=== PATIENT | female | born 1945 | race Caucasian/White ===

== ENCOUNTER 2018-12-27 11:02 | Inpatient (IN) | payer MEDICARE, MEDICAID ==
[~2018-12-27] VITALS: Ht 154.9 cm; Wt 56.4 kg
[2018-12-27 11:37] LABS: BASO % 0 % (0-3); EOS # 0.6 x10^3/uL (0.0-0.7); EOS % 14 % (0-3); HEMATOCRIT 37.5 % (36.0-47.0); HEMOGLOBIN 12.1 g/dL (12.0-15.5); LYMPH # 1.1 x10^3/uL (1.0-4.8); LYMPH % 27 % (24-48); MEAN CORPUSCULAR HEMOGLOBIN 27 pg (25-35); MEAN CORPUSCULAR HGB CONC 32 g/dL (31-37); MEAN CORPUSCULAR VOLUME 83 fL (79-100); MONO # 0.3 x10^3/uL (0.0-1.1); MONO % 9 % (0-9); NEUT % 50 % (31-73); PLATELET COUNT 291 x10^3/uL (140-400); RED CELL DISTRIBUTION WIDTH 16.4 % (11.5-14.5)
--- NOTE | 2018-12-27 11:47 | RAD ---
2 view study of the right hip and AP view of the pelvis Clinical indications: Fall. Right hip pain and pelvic pain. Right hip: No acute fracture or dislocation or osteolytic process is seen. Pelvis: No acute fracture or diastases or lytic process is seen. IMPRESSION: No acute fracture Electronically signed by: Rudolph Diaz MD (12/27/2018 11:44 AM) [id number]
[2018-12-27 11:50] LABS: ALBUMIN 2.8 g/dL (3.4-5.0); ALBUMIN/GLOBULIN RATIO 0.7 (1.0-1.7); CALCIUM 8.6 mg/dL (8.5-10.1); CREATININE 0.7 mg/dL (0.6-1.0); GFR 82.3; MAGNESIUM 2.2 mg/dL (1.8-2.4); POTASSIUM 3.9 mmol/L (3.5-5.1); TOTAL BILIRUBIN 0.3 mg/dL (0.2-1.0); TOTAL PROTEIN 6.9 g/dL (6.4-8.2)
[2018-12-27 12:21] LABS: BACTERIA,URINE 0 /HPF (0-FEW); BILIRUBIN,URINE NEG (NEG); CLARITY,URINE CLEAR; COLOR,URINE YELLOW; GLUCOSE,URINE NEG (NEG); NITRITE,URINE NEG (NEG); RBC,URINE 0 /HPF (0-2); SQUAMOUS EPITHELIAL CELL,UR OCC /LPF; UROBILINOGEN,URINE 0.2 mg/dL (0.2 mg/dL); WBC,URINE 0 /HPF (0-4)
[2018-12-27 12:22] LABS: AMORPHOUS SEDIMENT,UR PRESENT /HPF
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
[2018-12-27 13:44] VITALS: BP 123/77
[2018-12-27] MEDS ORDERED: MAG30ORA2 PO (14:45)
[2018-12-27] MEDS ORDERED: METHYL SALICYLATE/MENTHOL TOPICAL OINTMENT 29GM TUBE. TP PRN (14:45)
[2018-12-27] MEDS ORDERED: MAGNESIUM HYDROXIDE 2,400 MG/30 ML ORAL.SUSP. PO PRN ×2 (14:45→15:15)
[2018-12-27] MEDS ORDERED: MAG HYDROX/AL HYDROX/SIMETH 30 ML ORAL.SUSP PO PRN ×2 (14:45→15:00)
[2018-12-27] MEDS ORDERED: ATOR10TA60 PO (14:59)
[2018-12-27] MEDS ORDERED: GABA600T7 PO (14:59)
[2018-12-27] MEDS ORDERED: QUET100T4 PO (14:59)
[2018-12-27] MEDS ORDERED: MEMA10TA PO (14:59)
[2018-12-27] MEDS ORDERED: ACET325T9 PO (14:59)
[2018-12-27] MEDS ORDERED: TRAZ-120 PO (14:59)
[2018-12-27] MEDS ORDERED: ACET-704 PO (14:59)
[2018-12-27] MEDS ORDERED: LORA2VIA6 IM (14:59)
[2018-12-27] MEDS ORDERED: LORA-254 PO (14:59)
[2018-12-27] MEDS ORDERED: MAGN2400 PO (14:59)
[2018-12-27] MEDS ORDERED: POLY17PO5 PO (14:59)
[2018-12-27] MEDS ORDERED: ACETAMINOPHEN 325 MG TABLET PO PRN (15:00)
[2018-12-27] MEDS ORDERED: CEPH500C PO (15:06)
[2018-12-27] MEDS ORDERED: POLYETHYLENE GLYCOL 3350 17 GM PACKET. PO PRN (15:15)
[2018-12-27] MEDS: ACETAMINOPHEN/CODEINE 300/30MG TABLET PO PRN (16:26)
--- NOTE | 2018-12-27 19:22 | HP ---
ADMIT DATE: 12/27/2018 PSYCHIATRIC ADMISSION HISTORY/EVALUATION This note covers elements not covered in my initial note of 12/27/2018. IDENTIFYING DATA: The patient is a 73-year-old female referred to us from [facility] by Dr. Botello, her primary care physician and admission was facilitated by the [facility] [employer] who is her court-appointed guardian in [place], [place] on account of the patient's worsening confusion after the patient's behaviors were unmanageable at the facility. Reportedly, she was "crowing like a chicken." She has a labile mood, was screaming, tearful, kicking, hitting, slapping staff and toileting. Behaviors were totally unmanageable. She attempts at interventions at the half-way, outpatient had failed resulting in this referral. CHIEF COMPLAINT: "No." The patient is oriented just to herself, totally oblivious of why she is here. HISTORY OF PRESENT ILLNESS: The patient has a history of dementia, Alzheimer's vascular type. She has been residing at the above facility for some time, but recently getting more anxious, agitated, paranoid, psychotic with marked mood lability. She has had sleep and appetite changes. No clear history of bipolar disorder, suicidal or homicidal ideation. PAST PSYCHIATRIC HISTORY: As above. MEDICAL HISTORY: Positive for chronic pain, hyperlipidemia, chronic constipation. DRUG ALLERGIES: AMPICILLIN, AZITHROMYCIN, LEVAQUIN, FLOMAX. CURRENT PSYCHOTROPICS: Ativan 0.5 mg q. 4 hours p.r.n. anxiety, trazodone 50 mg b.i.d., Namenda 10 mg b.i.d., Seroquel 150 mg t.i.d. UA is negative. FAMILY HISTORY: Noncontributory. DIET: Regular. ACCU-CHEKS: None. She ambulates on her own. FAMILY HISTORY: Noncontributory. SOCIAL HISTORY: No history of alcohol, drug abuse, physical, sexual or elder abuse. She is not known to be a perpetrator. REACTION TO HOSPITALIZATION: The patient oblivious of this. ASSETS: Supportive, living at the half-way and supported by her guardian. REVIEW OF SYSTEMS: No CV, , pulmonary, eye, ENT system symptoms on review. Reliability poor. MENTAL STATUS EXAMINATION: The patient is oriented to herself. Insight, judgment, recent and remote memory, attention, concentration, fund of knowledge poor, consistent with her diagnosis. Speech coherent, rapid at times. Thought processes evident for loose associations. Appears somewhat paranoid at times, extremely distractible, labile in her mood. LABORATORY DATA: Reviewed. IMPRESSION: Major neurocognitive disorder, Alzheimer, vascular with delusion, depression, behavioral disturbance; anxiety disorder, unspecified; impulse control disorder, unspecified. Rest as above. PLAN: Admit to the geropsychiatry unit at [facility]. I will see the patient daily individually from a psychiatric standpoint, medical followup with Dr. Cooney. Observe the patient's baseline. Continue current psychotropics, then adjust further as clinically indicated. May consider Depakote as a mood stabilizer, BuSpar for anxiety, but I would like to evaluate her baseline before deciding. MAN Baldemar MCCAIN MD DR: ERIN/rajesh JOB#: [id number] / [id number]
[2018-12-27] MEDS: CEPHALEXIN 250 MG CAPSULE PO SCH (20:24)
[2018-12-27] MEDS: MEMANTINE 10 MG TABLET. PO SCH (20:24)
[2018-12-27] MEDS: traZODone 50 MG TABLET. PO SCH (20:25)
[2018-12-27] MEDS: GABAPENTIN 100 MG CAPSULE. PO SCH (20:25)
[2018-12-27] MEDS: QUEtiapine 50 MG TABLET. PO SCH (20:25)
[2018-12-27] MEDS: ATORVASTATIN CALCIUM 10 MG TABLET. PO SCH (20:25)
--- NOTE | 2018-12-27 22:13 | PDOC ---
Exam Note: Yoel Note: Please also refer to the separate dictated note~for this date of service dictated separately. Discussed the patient with Nursing staff reviewed the chart.~Reviewed interim history and current functioning. Reviewed vital signs,~ Labs/ Radiology~and current medications noted below. Continue current treatment with the changes noted in the dictated addendum note Assessment: Vital Signs: Vital Signs Date Time Temp Pulse Resp B/P (MAP) Pulse Ox O2 Delivery O2 Flow Rate FiO2 12/27/18 18:27 18 98 Room Air 12/27/18 13:44 98.6 73 123/77 (92) Labs: Laboratory Tests Test 12/27/18 11:21 12/27/18 12:00 White Blood Count 4.0 x10^3/uL (4.0-11.0) Red Blood Count 4.50 x10^6/uL (3.50-5.40) Hemoglobin 12.1 g/dL (12.0-15.5) Hematocrit 37.5 % (36.0-47.0) Mean Corpuscular Volume 83 fL (79-100) Mean Corpuscular Hemoglobin 27 pg (25-35) Mean Corpuscular Hemoglobin Concent 32 g/dL (31-37) Red Cell Distribution Width 16.4 % (11.5-14.5) H Platelet Count 291 x10^3/uL (140-400) Neutrophils (%) (Auto) 50 % (31-73) Lymphocytes (%) (Auto) 27 % (24-48) Monocytes (%) (Auto) 9 % (0-9) Eosinophils (%) (Auto) 14 % (0-3) H Basophils (%) (Auto) 0 % (0-3) Neutrophils # (Auto) 2.0 x10^3uL (1.8-7.7) Lymphocytes # (Auto) 1.1 x10^3/uL (1.0-4.8) Monocytes # (Auto) 0.3 x10^3/uL (0.0-1.1) Eosinophils # (Auto) 0.6 x10^3/uL (0.0-0.7) Basophils # (Auto) 0.0 x10^3/uL (0.0-0.2) Sodium Level 143 mmol/L (136-145) Potassium Level 3.9 mmol/L (3.5-5.1) Chloride Level 106 mmol/L (98-107) Carbon Dioxide Level 30 mmol/L (21-32) Anion Gap 7 (6-14) Blood Urea Nitrogen 8 mg/dL (7-20) Creatinine 0.7 mg/dL (0.6-1.0) Estimated GFR (Cockcroft-Gault) 82.3 BUN/Creatinine Ratio 11 (6-20) Glucose Level 93 mg/dL (70-99) Calcium Level 8.6 mg/dL (8.5-10.1) Magnesium Level 2.2 mg/dL (1.8-2.4) Total Bilirubin 0.3 mg/dL (0.2-1.0) Aspartate Amino Transferase (AST) 14 U/L (15-37) L Alanine Aminotransferase (ALT) 15 U/L (14-59) Alkaline Phosphatase 65 U/L (46-116) Total Protein 6.9 g/dL (6.4-8.2) Albumin 2.8 g/dL (3.4-5.0) L Albumin/Globulin Ratio 0.7 (1.0-1.7) L Urine Collection Type U cath Urine Color Yellow Urine Clarity Clear Urine pH 5.5 Urine Specific [place] 1.020 Urine Protein Neg (NEG-TRACE) Urine Glucose (UA) Neg mg/dL (NEG) Urine Ketones (Stick) Neg mg/dL (NEG) Urine Blood Neg (NEG) Urine Nitrite Neg (NEG) Urine Bilirubin Neg (NEG) Urine Urobilinogen Dipstick 0.2 mg/dL (0.2 mg/dL) Urine Leukocyte Esterase Neg (NEG) Urine RBC 0 /HPF (0-2) Urine WBC 0 /HPF (0-4) Urine Squamous Epithelial Cells Occ /LPF Urine Amorphous Sediment Present /HPF Urine Bacteria 0 /HPF (0-FEW) Current Medications: Meds: Current Medications Acetaminophen (Tylenol) 650 mg PRN Q6HRS PRN PO PAIN / TEMP; Start 12/27/18 at 14:45 Multi-Ingredient Ointment (Analgesic [place]) 1 halle PRN QID PRN TP MUSCLE PAIN; Start 12/27/18 at 14:45 Al Hydroxide/Mg Hydroxide (Mylanta Plus Xs) 15 ml PRN AFTMEALHC PRN PO DYSPEPSIA; Start 12/27/18 at 14:45; Status Cancel Magnesium Hydroxide (Milk Of Magnesia) 2,400 mg PRN QHS PRN PO CONSTIPATION; Start 12/27/18 at 14:45; Status Cancel Acetaminophen (Tylenol) 650 mg PRN Q6HRS PRN PO PAIN; Start 12/27/18 at 15:00; Status UNV Lorazepam (Ativan) 0.5 mg PRN Q4HRS PRN PO AGITATION; Start 12/27/18 at 15:00 Al Hydroxide/Mg Hydroxide (Mylanta Plus Xs) 30 ml PRN Q4HRS PRN PO DYSPEPSIA; Start 12/27/18 at 15:00 Acetaminophen/ Codeine Phosphate (Tylenol #3) 1 tab PRN Q6HRS PRN PO PAIN Last administered on 12/27/18at 16:26; Start 12/27/18 at 15:15 Atorvastatin Calcium (Lipitor) 10 mg QHS PO Last administered on 12/27/18 20: 25; Start 12/27/18 at 21:00 Gabapentin (Neurontin) 100 mg TID PO Last administered on 12/27/18at 20:25; Start 12/27/18 at 21:00 Magnesium Hydroxide (Milk Of Magnesia) 2,400 mg PRN Q6HRS PRN PO CONSTIPATION; Start 12/27/18 at 15:15 Memantine (Namenda) 10 mg BID PO Last administered on 12/27/18at 20:24; Start at 21:00 Polyethylene Glycol (miraLAX) 17 gm PRN DAILY PRN PO CONSTIPATION; Start at 15:15 Quetiapine Fumarate (SEROquel) 150 mg TID PO Last administered on 12/27/18at 20: 25; Start 12/27/18 at 21:00 Trazodone HCl (Desyrel) 50 mg BID PO Last administered on 12/27/18 20:25; Start 12/27/18 at 21:00 Cephalexin HCl (Keflex) 500 mg TID PO Last administered on 12/27/18at 20:24; Start 12/27/18 at 21:00 Active Scripts Active Reported Cephalexin 500 Mg Capsule 500 Mg PO TID Gabapentin 600 Mg Tablet 100 Mg PO TID Seroquel (Quetiapine Fumarate) 100 Mg Tablet 150 Mg PO TID Atorvastatin Calcium 10 Mg Tablet 10 Mg PO QHS Namenda (Memantine Hcl) 10 Mg Tablet 10 Mg PO BID Trazodone Hcl 50 Mg Tablet 50 Mg PO BID Miralax (Polyethylene Glycol 3350) 17 Gm Powd.pack 17 Gm PO PRN DAILY PRN Tylenol With Codeine #3 Tablet (Acetaminophen With Codeine) 1 Each Tablet 1 Each PO PRN Q6HRS PRN Milk Of Magnesia (Magnesium Hydroxide) 2,400 Mg/10 Ml Oral.susp 30 Ml PO PRN Q6HRS PRN Tylenol (Acetaminophen) 325 Mg Tablet 650 Mg PO PRN Q6HRS PRN Ativan (Lorazepam) 1 Mg Tablet 0.5 Mg PO PRN Q4HRS PRN Mag-Al Plus Xs Suspension (Mag Hydrox/Al Hydrox/Simeth) 30 Ml Oral.susp 30 Ml PO PRN Q4HRS PRN I have reviewed the current psychotropics carefully including drug interactions. Risk benefit ratio favors no change other than as noted in my dictated progress note. Diagnosis: Problems: (1) Dementia (2) Behavior problem (3) Medical clearance for psychiatric admission (4) Anxiety disorder (5) Dementia in Alzheimer's disease with delusions (6) Dementia in Alzheimer's disease with depression (7) Dementia, vascular, with delusions (8) Dementia, vascular, with depression (9) Impulse control disorder NAJMA MCCAIN MD Dec 27, 2018 22:13
[2018-12-27 23:07] LABS: THYROXINE 5.8 ug/dL (4.5-12.0)
[2018-12-28 01:06] LABS: HEMOGLOBIN A1C 6.4 % (4.8-5.6)
[2018-12-28] MEDS: ACETAMINOPHEN/CODEINE 300/30MG TABLET PO PRN (01:18)
[2018-12-28 06:02] VITALS: BP 125/61
[2018-12-28] MEDS: QUEtiapine 50 MG TABLET. PO SCH ×3 (08:23→19:30)
[2018-12-28] MEDS: GABAPENTIN 100 MG CAPSULE. PO SCH ×3 (08:24→19:30)
[2018-12-28] MEDS: MEMANTINE 10 MG TABLET. PO SCH ×2 (08:24→19:30)
[2018-12-28] MEDS: CEPHALEXIN 250 MG CAPSULE PO SCH ×3 (08:24→19:29)
[2018-12-28] MEDS: traZODone 50 MG TABLET. PO SCH (08:27)
--- NOTE | 2018-12-28 11:30 | EKG ---
[address] [address] Test Date: 2018-12-27 Test Time: 11:53:06 Pat Name: SUKHJINDER GLEZ Department: Room: [address] [place] [address] Gender: F Milling Supervisor: SHAYLEE : 1945 Requested By: SEBASTIÁN ABARCA Order Number: [id number] Reading MD: Armand Mckeon Measurements Intervals [place] Rate: 70 P: 46 NM: 136 QRS: -7 QRSD: 94 T: 28 QT: 396 QTc: 430 Interpretive Statements SINUS RHYTHM NONSPECIFIC ST-T WAVE CHANGES. Electronically Signed On 01-01-2019 10:33:51 PHOTO GRAPHICS LIBRARIAN by Armand Mckeon
[2018-12-28 13:12] LABS: THYROID STIM HORMONE (TSH) 1.959 uIU/mL (0.358-3.740)
[2018-12-28] MEDS: ACETAMINOPHEN 325 MG TABLET PO PRN (15:20)
[2018-12-28 15:59] VITALS: BP 122/73
[2018-12-28] MEDS: LORazepam 0.5 MG TABLET PO PRN (16:29)
[2018-12-28] MEDS: ATORVASTATIN CALCIUM 10 MG TABLET. PO SCH (19:30)
[2018-12-28] MEDS: traZODone 100 MG TABLET. PO SCH (20:48)
--- NOTE | 2018-12-28 22:08 | PDOC ---
Exam Note: Yoel Note: Please also refer to the separate dictated note~for this date of service dictated separately.~Patient seen individually. Discussed the patient with Nursing staff reviewed the chart.~Reviewed interim history and current functioning. Reviewed vital signs,~Labs/ Radiology~and current medications noted below. Continue current treatment with the changes noted in the dictated addendum note Assessment: Vital Signs: Vital Signs Date Time Temp Pulse Resp B/P (MAP) Pulse Ox O2 Delivery O2 Flow Rate FiO2 12/28/18 15:59 98.2 99 16 122/73 (89) 95 12/28/18 01:18 Room Air I&O Intake and Output 12/28/18 07:00 Intake Total 240 ml Balance 240 ml Intake Oral 240 ml Current Medications: Meds: Current Medications Acetaminophen (Tylenol) 650 mg PRN Q6HRS PRN PO PAIN / TEMP Last administered on 12/28/18at 15:20; Start 12/27/18 at 14:45 Multi-Ingredient Ointment (Analgesic [place]) 1 halle PRN QID PRN TP MUSCLE PAIN; Start 12/27/18 at 14:45 Al Hydroxide/Mg Hydroxide (Mylanta Plus Xs) 15 ml PRN AFTMEALHC PRN PO DYSPEPSIA; Start 12/27/18 at 14:45; Status Cancel Magnesium Hydroxide (Milk Of Magnesia) 2,400 mg PRN QHS PRN PO CONSTIPATION; Start 12/27/18 at 14:45; Status Cancel Acetaminophen (Tylenol) 650 mg PRN Q6HRS PRN PO PAIN; Start 12/27/18 at 15:00; Status UNV Lorazepam (Ativan) 0.5 mg PRN Q4HRS PRN PO AGITATION Last administered on at 16:29; Start 12/27/18 at 15:00 Al Hydroxide/Mg Hydroxide (Mylanta Plus Xs) 30 ml PRN Q4HRS PRN PO DYSPEPSIA; Start 12/27/18 at 15:00 Acetaminophen/ Codeine Phosphate (Tylenol #3) 1 tab PRN Q6HRS PRN PO PAIN Last administered on 12/28/18at 01:18; Start 12/27/18 at 15:15 Atorvastatin Calcium (Lipitor) 10 mg QHS PO Last administered on 12/28/18at 19: 30; Start 12/27/18 at 21:00 Gabapentin (Neurontin) 100 mg TID PO Last administered on 12/28/18at 19:30; Start 12/27/18 at 21:00 Magnesium Hydroxide (Milk Of Magnesia) 2,400 mg PRN Q6HRS PRN PO CONSTIPATION; Start 12/27/18 at 15:15 Memantine (Namenda) 10 mg BID PO Last administered on 12/28/18at 19:30; Start at 21:00 Polyethylene Glycol (miraLAX) 17 gm PRN DAILY PRN PO CONSTIPATION; Start at 15:15 Quetiapine Fumarate (SEROquel) 150 mg TID PO Last administered on 12/28/18at 19: 30; Start 12/27/18 at 21:00 Trazodone HCl (Desyrel) 50 mg BID PO Last administered on 12/28/18at 08:27; Start 12/27/18 at 21:00; Stop 12/28/18 at 17:59; Status DC Cephalexin HCl (Keflex) 500 mg TID PO Last administered on 12/28/18at 19:29; Start 12/27/18 at 21:00 Sertraline HCl (Zoloft) 25 mg DAILY PO ; Start 12/29/18 at 09:00 Trazodone HCl (Desyrel) 100 mg QHS PO Last administered on 12/28/18at 20:48; Start 12/28/18 at 21:00 Trazodone HCl (Desyrel) 100 mg PRN QHS PRN PO INSOMNIA; Start 12/28/18 at 18:00 Active Scripts Active Reported Cephalexin 500 Mg Capsule 500 Mg PO TID Gabapentin 600 Mg Tablet 100 Mg PO TID Seroquel (Quetiapine Fumarate) 100 Mg Tablet 150 Mg PO TID Atorvastatin Calcium 10 Mg Tablet 10 Mg PO QHS Namenda (Memantine Hcl) 10 Mg Tablet 10 Mg PO BID Trazodone Hcl 50 Mg Tablet 50 Mg PO BID Miralax (Polyethylene Glycol 3350) 17 Gm Powd.pack 17 Gm PO PRN DAILY PRN Tylenol With Codeine #3 Tablet (Acetaminophen With Codeine) 1 Each Tablet 1 Each PO PRN Q6HRS PRN Milk Of Magnesia (Magnesium Hydroxide) 2,400 Mg/10 Ml Oral.susp 30 Ml PO PRN Q6HRS PRN Tylenol (Acetaminophen) 325 Mg Tablet 650 Mg PO PRN Q6HRS PRN Ativan (Lorazepam) 1 Mg Tablet 0.5 Mg PO PRN Q4HRS PRN Mag-Al Plus Xs Suspension (Mag Hydrox/Al Hydrox/Simeth) 30 Ml Oral.susp 30 Ml PO PRN Q4HRS PRN I have reviewed the current psychotropics carefully including drug interactions. Risk benefit ratio favors no change other than as noted in my dictated progress note. Diagnosis: Problems: (1) Dementia (2) Behavior problem (3) Medical clearance for psychiatric admission (4) Anxiety disorder (5) Dementia in Alzheimer's disease with delusions (6) Dementia in Alzheimer's disease with depression (7) Dementia, vascular, with delusions (8) Dementia, vascular, with depression (9) Impulse control disorder NAJMA MCCAIN MD Dec 28, 2018 22:08
--- NOTE | 2018-12-28 23:30 | CONS ---
DATE OF CONSULTATION: 12/28/2018 REASON FOR CONSULTATION: For medical management. HISTORY OF PRESENT ILLNESS: The patient is a 73-year-old female patient, a resident of [facility] on account of worsening confusion after the patient's behavior was unmanageable at the facility. Reportedly, she was crowing like a chicken. She has a labile mood, was screaming, tearful, kicking, hitting, slapping staff and behaviors were totally unmanageable. [facility], has failed and therefore she was admitted for inpatient psychiatric stabilization. The patient herself is demented and oriented only to herself and does not really give any useful information. PAST MEDICAL HISTORY: Significant for chronic pain syndrome, hyperlipidemia, chronic constipation. She also seems to be having pain in her knee joints. PAST SURGICAL HISTORY: Unremarkable. FAMILY HISTORY: Noncontributory. SOCIAL HISTORY: She apparently is a resident at [facility]. She does not smoke, drink alcohol or use any recreational drugs. ALLERGIES: SHE IS ALLERGIC TO AMPICILLIN, AZITHROMYCIN, LEVAQUIN, AND FLOMAX. PHYSICAL EXAMINATION: GENERAL: When I examined her this afternoon, she was sitting in her chair comfortably in no apparent distress. She is very confused. However, there is no pallor, jaundice, or cyanosis. No lymphadenopathy, no thyromegaly. No jugular venous distension. No lower limb edema. VITAL SIGNS: Her heart rate was 99, blood pressure was 122/73, temperature was 98.2, respiratory rate was 16, and oxygen saturation was 95%. HEAD, EYES, EARS, NOSE, AND THROAT: Showed she is normocephalic, atraumatic. NECK: Supple. HEART: Showed normal first and second heart sounds. No gallop, rub, or murmur. CHEST: Clear to auscultation. No crepitation or rhonchi. ABDOMEN: Distended, soft, nontender. NEUROLOGIC: She is demented, but without any obvious lateralizing sign. All her cranial nerves are intact. EXTREMITIES: She moves extremities without difficulty. She walks with a walker, although the nursing staff stated she seems to be unsteady on her feet. LABORATORY DATA AND IMAGING: Showed a white cell count 4000, hemoglobin 12, hematocrit 37, MCV 83 and platelet count 291,000. Her chemistry showed a serum sodium 143, potassium 3.9, chloride 106, bicarbonate 30, anion gap of 7, BUN 8, creatinine 0.7, estimated GFR was 82 mL per minute. Her glucose was 93. Hemoglobin A1c was 6.4%. Her calcium was 8.6, magnesium 2.2. Total bilirubin, AST, ALT, alkaline phosphatase were normal. Her total protein was 6.9, albumin was 2.8. Her serum triglycerides were 92. Total cholesterol was 159, LDL cholesterol was 96, VLDL was 18, HDL was 45 and the ratio was 3. Her TSH, total T4, and total T3 are all within normal range. Her urinalysis showed that the urine was yellow, clear with a pH of 5.5, specific gravity of 1.020. The urine was negative for protein, glucose, ketone, blood, nitrite, leukocyte esterase. There are no rbc's or wbc's, and no bacteria. She did have an x-ray of her right hip and pelvis as apparently she fell and the x-ray showed no acute fracture or dislocation or osteolytic processes seen and there was no acute fracture or diastasis or lytic process seen in her pelvic bones. IMPRESSION: In summary, this is a 73-year-old female patient who was admitted on account of worsening confusion. She apparently was crowing like a chicken. She has a labile mood, was screaming tearful, kicking, hitting, slapping staff and all this in a background of dementia, Alzheimer, vascular type. Medically, she is known to have chronic pain syndrome, hyperlipidemia, chronic constipation. All in all, the patient seemed to be medically stable. All her vital signs and her lab works are all within acceptable range. She seemed to have pain in her knee joint, so I did arrange for her to have an x-ray of her both knee joints and if necessary, we can inject her with steroids if the pain seems to be limiting her mobility. Thank you, Dr. Ruiz for allowing me to participate in the care of this patient. HARDY MARCUS MD DR: DANAE/rajesh JOB#: [id number] / [id number]
[2018-12-29] MEDS: traZODone 100 MG TABLET. PO PRN ×2 (00:15→22:46)
[2018-12-29] MEDS: ACETAMINOPHEN/CODEINE 300/30MG TABLET PO PRN (00:47)
[2018-12-29] MEDS: LORazepam 0.5 MG TABLET PO PRN ×2 (00:47→15:35)
[2018-12-29] MEDS: MEMANTINE 10 MG TABLET. PO SCH ×2 (07:42→19:23)
[2018-12-29] MEDS: QUEtiapine 50 MG TABLET. PO SCH ×3 (07:42→19:23)
[2018-12-29] MEDS: CEPHALEXIN 250 MG CAPSULE PO SCH ×2 (07:42→15:33)
[2018-12-29] MEDS: GABAPENTIN 100 MG CAPSULE. PO SCH ×3 (07:43→19:23)
[2018-12-29] MEDS: SERTRALINE 25 MG TABLET. PO SCH (07:44)
[2018-12-29 15:53] VITALS: BP 127/68
[2018-12-29] MEDS: ATORVASTATIN CALCIUM 10 MG TABLET. PO SCH (19:23)
[2018-12-29] MEDS: traZODone 100 MG TABLET. PO SCH (19:23)
[2018-12-29] MEDS: MIRTAZAPINE 7.5 MG TABLET. PO SCH (19:39)
--- NOTE | 2018-12-29 19:53 | PN ---
DATE: 12/28/2018 This late entry for 12/28/2018 covers elements not covered in my initial note. SUBJECTIVE: I met with the patient in the evening. The patient slept 3 hours previous night. Physical therapy and occupational therapy want the patient to walk and encouraged ambulation. She has many somatic symptoms, at times states she cannot swallow. Received p.r.n. Ativan. At one point, she sat herself onto the nursing staff, which appeared that she was feigning that she was unable to stand up. At another point, she had her mouth open, things drooling out of it. I have carefully reviewed her psychotropics. She is on trazodone 50 b.i.d. and Seroquel 150 t.i.d. and we will change the trazodone to 100 mg at bedtime, may repeat x 1 for insomnia. REVIEW OF SYSTEMS: No CV, , pulmonary, eye, ENT system symptoms on review. Reliability poor. MENTAL STATUS EXAM: Oriented to herself. Insight, judgment, recent and remote memory, attention, concentration, fund of knowledge poor, consistent with her diagnosis. IMPRESSION: Major neurocognitive disorder, Alzheimer, vascular with delusion, depression, behavioral disturbance; anxiety disorder, unspecified; impulse control disorder, unspecified. Rest unchanged. PLAN: Change the trazodone as above. Start Zoloft 25 mg a day. Maintain Namenda 10 b.i.d., Seroquel 150 t.i.d. and we may need to reduce this daytime dosage as well. NAJMA MCCAIN MD DR: ERIN/rajesh JOB#: [id number] / [id number]
--- NOTE | 2018-12-29 22:34 | PDOC ---
Exam Note: Yoel Note: Please also refer to the separate dictated note~for this date of service dictated separately.~Patient seen individually. Discussed the patient with Nursing staff reviewed the chart.~Reviewed interim history and current functioning. Reviewed vital signs,~Labs/ Radiology~and current medications noted below. Continue current treatment with the changes noted in the dictated addendum note Assessment: Vital Signs: Vital Signs Date Time Temp Pulse Resp B/P (MAP) Pulse Ox O2 Delivery O2 Flow Rate FiO2 12/29/18 15:53 97.6 80 18 127/68 (87) 92 12/29/18 01:49 Room Air I&O Intake and Output 12/29/18 07:00 Intake Total 480 ml Balance 480 ml Intake Oral 480 ml Current Medications: Meds: Current Medications Acetaminophen (Tylenol) 650 mg PRN Q6HRS PRN PO PAIN / TEMP Last administered on 12/28/18at 15:20; Start 12/27/18 at 14:45 Multi-Ingredient Ointment (Analgesic [place]) 1 halle PRN QID PRN TP MUSCLE PAIN; Start 12/27/18 at 14:45 Al Hydroxide/Mg Hydroxide (Mylanta Plus Xs) 15 ml PRN AFTMEALHC PRN PO DYSPEPSIA; Start 12/27/18 at 14:45; Status Cancel Magnesium Hydroxide (Milk Of Magnesia) 2,400 mg PRN QHS PRN PO CONSTIPATION; Start 12/27/18 at 14:45; Status Cancel Acetaminophen (Tylenol) 650 mg PRN Q6HRS PRN PO PAIN; Start 12/27/18 at 15:00; Status UNV Lorazepam (Ativan) 0.5 mg PRN Q4HRS PRN PO AGITATION Last administered on at 15:35; Start 12/27/18 at 15:00 Al Hydroxide/Mg Hydroxide (Mylanta Plus Xs) 30 ml PRN Q4HRS PRN PO DYSPEPSIA; Start 12/27/18 at 15:00 Acetaminophen/ Codeine Phosphate (Tylenol #3) 1 tab PRN Q6HRS PRN PO PAIN Last administered on 12/29/18at 00:47; Start 12/27/18 at 15:15 Atorvastatin Calcium (Lipitor) 10 mg QHS PO Last administered on 12/29/18at 19: 23; Start 12/27/18 at 21:00 Gabapentin (Neurontin) 100 mg TID PO Last administered on 12/29/18at 19:23; Start 12/27/18 at 21:00 Magnesium Hydroxide (Milk Of Magnesia) 2,400 mg PRN Q6HRS PRN PO CONSTIPATION; Start 12/27/18 at 15:15 Memantine (Namenda) 10 mg BID PO Last administered on 12/29/18at 19:23; Start at 21:00 Polyethylene Glycol (miraLAX) 17 gm PRN DAILY PRN PO CONSTIPATION; Start at 15:15 Quetiapine Fumarate (SEROquel) 150 mg TID PO Last administered on 12/29/18 19: 23; Start 12/27/18 at 21:00 Trazodone HCl (Desyrel) 50 mg BID PO Last administered on 12/28/18 08:27; Start 12/27/18 at 21:00; Stop 12/28/18 at 17:59; Status DC Cephalexin HCl (Keflex) 500 mg TID PO Last administered on 12/29/18at 15:33; Start 12/27/18 at 21:00; Stop 12/29/18 at 17:51; Status DC Sertraline HCl (Zoloft) 25 mg DAILY PO Last administered on 12/29/18 07:44; Start 12/29/18 at 09:00 Trazodone HCl (Desyrel) 100 mg QHS PO Last administered on 12/29/18 19:23; Start 12/28/18 at 21:00 Trazodone HCl (Desyrel) 100 mg PRN QHS PRN PO INSOMNIA Last administered on 00:15; Start 12/28/18 at 18:00 Mirtazapine (Remeron) 7.5 mg QHS PO Last administered on 12/29/18 19:39; Start 12/29/18 at 21:00 Active Scripts Active Reported Cephalexin 500 Mg Capsule 500 Mg PO TID Gabapentin 600 Mg Tablet 100 Mg PO TID Seroquel (Quetiapine Fumarate) 100 Mg Tablet 150 Mg PO TID Atorvastatin Calcium 10 Mg Tablet 10 Mg PO QHS Namenda (Memantine Hcl) 10 Mg Tablet 10 Mg PO BID Trazodone Hcl 50 Mg Tablet 50 Mg PO BID Miralax (Polyethylene Glycol 3350) 17 Gm Powd.pack 17 Gm PO PRN DAILY PRN Tylenol With Codeine #3 Tablet (Acetaminophen With Codeine) 1 Each Tablet 1 Each PO PRN Q6HRS PRN Milk Of Magnesia (Magnesium Hydroxide) 2,400 Mg/10 Ml Oral.susp 30 Ml PO PRN Q6HRS PRN Tylenol (Acetaminophen) 325 Mg Tablet 650 Mg PO PRN Q6HRS PRN Ativan (Lorazepam) 1 Mg Tablet 0.5 Mg PO PRN Q4HRS PRN Mag-Al Plus Xs Suspension (Mag Hydrox/Al Hydrox/Simeth) 30 Ml Oral.susp 30 Ml PO PRN Q4HRS PRN I have reviewed the current psychotropics carefully including drug interactions. Risk benefit ratio favors no change other than as noted in my dictated progress note. Diagnosis: Problems: (1) Dementia (2) Behavior problem (3) Medical clearance for psychiatric admission (4) Anxiety disorder (5) Dementia in Alzheimer's disease with delusions (6) Dementia in Alzheimer's disease with depression (7) Dementia, vascular, with delusions (8) Dementia, vascular, with depression (9) Impulse control disorder NAJMA MCCAIN MD Dec 29, 2018 22:34
[2018-12-30 06:51] VITALS: BP 120/69
[2018-12-30] MEDS: GABAPENTIN 100 MG CAPSULE. PO SCH ×3 (07:57→20:34)
[2018-12-30] MEDS: SERTRALINE 25 MG TABLET. PO SCH (07:58)
[2018-12-30] MEDS: QUEtiapine 50 MG TABLET. PO SCH ×3 (07:58→20:35)
[2018-12-30] MEDS: MEMANTINE 10 MG TABLET. PO SCH ×2 (07:58→20:34)
[2018-12-30 15:35] VITALS: BP 109/60
[2018-12-30] MEDS: ATORVASTATIN CALCIUM 10 MG TABLET. PO SCH (20:34)
[2018-12-30] MEDS: traZODone 100 MG TABLET. PO SCH (20:34)
[2018-12-30] MEDS: MIRTAZAPINE 7.5 MG TABLET. PO SCH (20:35)
[2018-12-30] MEDS: ACETAMINOPHEN 325 MG TABLET PO PRN (20:36)
--- NOTE | 2018-12-30 21:29 | PDOC ---
Exam Note: Yoel Note: Please also refer to the separate dictated note~for this date of service dictated separately.~Patient seen individually. Discussed the patient with Nursing staff reviewed the chart.~Reviewed interim history and current functioning. Reviewed vital signs,~Labs/ Radiology~and current medications noted below. Continue current treatment with the changes noted in the dictated addendum note Assessment: Vital Signs: Vital Signs Date Time Temp Pulse Resp B/P (MAP) Pulse Ox O2 Delivery O2 Flow Rate FiO2 12/30/18 15:35 98.0 102 20 109/60 (76) 98 Nasal Cannula I&O Intake and Output 12/30/18 07:00 Intake Total 600 ml Balance 600 ml Intake Oral 600 ml Current Medications: Meds: Current Medications Acetaminophen (Tylenol) 650 mg PRN Q6HRS PRN PO PAIN / TEMP Last administered on 12/30/18at 20:36; Start 12/27/18 at 14:45 Multi-Ingredient Ointment (Analgesic [place]) 1 halle PRN QID PRN TP MUSCLE PAIN; Start 12/27/18 at 14:45 Al Hydroxide/Mg Hydroxide (Mylanta Plus Xs) 15 ml PRN AFTMEALHC PRN PO DYSPEPSIA; Start 12/27/18 at 14:45; Status Cancel Magnesium Hydroxide (Milk Of Magnesia) 2,400 mg PRN QHS PRN PO CONSTIPATION; Start 12/27/18 at 14:45; Status Cancel Acetaminophen (Tylenol) 650 mg PRN Q6HRS PRN PO PAIN; Start 12/27/18 at 15:00; Status UNV Lorazepam (Ativan) 0.5 mg PRN Q4HRS PRN PO AGITATION Last administered on at 15:35; Start 12/27/18 at 15:00 Al Hydroxide/Mg Hydroxide (Mylanta Plus Xs) 30 ml PRN Q4HRS PRN PO DYSPEPSIA; Start 12/27/18 at 15:00 Acetaminophen/ Codeine Phosphate (Tylenol #3) 1 tab PRN Q6HRS PRN PO PAIN Last administered on 12/29/18at 00:47; Start 12/27/18 at 15:15 Atorvastatin Calcium (Lipitor) 10 mg QHS PO Last administered on 12/30/18at 20: 34; Start 12/27/18 at 21:00 Gabapentin (Neurontin) 100 mg TID PO Last administered on 12/30/18 20:34; Start 12/27/18 at 21:00 Magnesium Hydroxide (Milk Of Magnesia) 2,400 mg PRN Q6HRS PRN PO CONSTIPATION; Start 12/27/18 at 15:15 Memantine (Namenda) 10 mg BID PO Last administered on 12/30/18at 20:34; Start at 21:00 Polyethylene Glycol (miraLAX) 17 gm PRN DAILY PRN PO CONSTIPATION; Start at 15:15 Quetiapine Fumarate (SEROquel) 150 mg TID PO Last administered on 12/30/18at 20: 35; Start 12/27/18 at 21:00 Trazodone HCl (Desyrel) 50 mg BID PO Last administered on 12/28/18 08:27; Start 12/27/18 at 21:00; Stop 12/28/18 at 17:59; Status DC Cephalexin HCl (Keflex) 500 mg TID PO Last administered on 12/29/18 15:33; Start 12/27/18 at 21:00; Stop 12/29/18 at 17:51; Status DC Sertraline HCl (Zoloft) 25 mg DAILY PO Last administered on 12/30/18 07:58; Start 12/29/18 at 09:00 Trazodone HCl (Desyrel) 100 mg QHS PO Last administered on 12/30/18 20:34; Start 12/28/18 at 21:00 Trazodone HCl (Desyrel) 100 mg PRN QHS PRN PO INSOMNIA Last administered on at 22:46; Start 12/28/18 at 18:00 Mirtazapine (Remeron) 7.5 mg QHS PO Last administered on 12/30/18 20:35; Start 12/29/18 at 21:00 Olanzapine (ZyPREXA ZYDIS) 2.5 mg PRN Q2HR PRN PO PSYCHOSIS; Start 12/30/18 at 11:15 Divalproex Sodium (Depakote Sprinkles) 125 mg BID@0900,1700 PO ; Start 12/31/18 at 09:00 Active Scripts Active Reported Cephalexin 500 Mg Capsule 500 Mg PO TID Gabapentin 600 Mg Tablet 100 Mg PO TID Seroquel (Quetiapine Fumarate) 100 Mg Tablet 150 Mg PO TID Atorvastatin Calcium 10 Mg Tablet 10 Mg PO QHS Namenda (Memantine Hcl) 10 Mg Tablet 10 Mg PO BID Trazodone Hcl 50 Mg Tablet 50 Mg PO BID Miralax (Polyethylene Glycol 3350) 17 Gm Powd.pack 17 Gm PO PRN DAILY PRN Tylenol With Codeine #3 Tablet (Acetaminophen With Codeine) 1 Each Tablet 1 Each PO PRN Q6HRS PRN Milk Of Magnesia (Magnesium Hydroxide) 2,400 Mg/10 Ml Oral.susp 30 Ml PO PRN Q6HRS PRN Tylenol (Acetaminophen) 325 Mg Tablet 650 Mg PO PRN Q6HRS PRN Ativan (Lorazepam) 1 Mg Tablet 0.5 Mg PO PRN Q4HRS PRN Mag-Al Plus Xs Suspension (Mag Hydrox/Al Hydrox/Simeth) 30 Ml Oral.susp 30 Ml PO PRN Q4HRS PRN I have reviewed the current psychotropics carefully including drug interactions. Risk benefit ratio favors no change other than as noted in my dictated progress note. Diagnosis: Problems: (1) Dementia (2) Behavior problem (3) Medical clearance for psychiatric admission (4) Anxiety disorder (5) Dementia in Alzheimer's disease with delusions (6) Dementia in Alzheimer's disease with depression (7) Dementia, vascular, with delusions (8) Dementia, vascular, with depression (9) Impulse control disorder NAJMA MCCAIN MD Dec 30, 2018 21:29
[2018-12-31 06:04] VITALS: BP 112/68
[2018-12-31] MEDS: SERTRALINE 25 MG TABLET. PO SCH (07:30)
[2018-12-31] MEDS: MEMANTINE 10 MG TABLET. PO SCH ×2 (07:30→19:53)
[2018-12-31] MEDS: QUEtiapine 50 MG TABLET. PO SCH ×3 (07:30→19:54)
[2018-12-31] MEDS: DIVALPROEX 125 MG CAP.SPRINK PO SCH ×2 (07:32→17:39)
[2018-12-31] MEDS: LORazepam 0.5 MG TABLET PO PRN ×2 (07:32→21:56)
[2018-12-31] MEDS: GABAPENTIN 100 MG CAPSULE. PO SCH ×3 (07:32→19:53)
--- NOTE | 2018-12-31 12:11 | PN ---
DATE: 12/29/2018 PSYCHIATRIC PROGRESS NOTE This late entry 12/29/2018 covers elements not covered in my initial note. SUBJECTIVE: I met with the patient in the evening. The patient slept 6 hours previous night. Per nursing report, she was "up and down" all night. She ate no breakfast. Reportedly, one of the other demented patients got aggressive towards the patient and she was quite agitated, received Ativan at 2:00 p.m. REVIEW OF SYSTEMS: Ambulation impaired, in wheelchair. No CV, , pulmonary, eye, ENT system symptoms on review. Reliability poor. MENTAL STATUS EXAM: Oriented to herself. Insight, judgment, recent and remote memory, attention, concentration, fund of knowledge poor, consistent with her diagnosis mentioned in my initial note. PLAN: Start Remeron 7.5 mg p.o. at bedtime to help with her anxiety, irritability, mood lability, continue rest unchanged. MAN Baldemar MCCAIN MD DR: ERIN/rajesh JOB#: [id number] / [id number]
[2018-12-31 16:05] VITALS: BP 113/79
--- NOTE | 2018-12-31 19:37 | PDOC ---
Exam Note: Yoel Note: Please also refer to the separate dictated note~for this date of service dictated separately.~Patient seen individually. Discussed the patient with Nursing staff reviewed the chart.~Reviewed interim history and current functioning. Reviewed vital signs,~Labs/ Radiology~and current medications noted below. Continue current treatment with the changes noted in the dictated addendum note Assessment: Vital Signs: Vital Signs Date Time Temp Pulse Resp B/P (MAP) Pulse Ox O2 Delivery O2 Flow Rate FiO2 12/31/18 16:05 97.7 97 18 113/79 (90) 96 12/30/18 15:35 Nasal Cannula I&O Intake and Output 12/31/18 06:59 Intake Total 720 ml Balance 720 ml Intake Oral 720 ml # Bowel Movements 1 Current Medications: Meds: Current Medications Acetaminophen (Tylenol) 650 mg PRN Q6HRS PRN PO PAIN / TEMP Last administered on 12/30/18at 20:36; Start 12/27/18 at 14:45 Multi-Ingredient Ointment (Analgesic [place]) 1 halle PRN QID PRN TP MUSCLE PAIN; Start 12/27/18 at 14:45 Al Hydroxide/Mg Hydroxide (Mylanta Plus Xs) 15 ml PRN AFTMEALHC PRN PO DYSPEPSIA; Start 12/27/18 at 14:45; Status Cancel Magnesium Hydroxide (Milk Of Magnesia) 2,400 mg PRN QHS PRN PO CONSTIPATION; Start 12/27/18 at 14:45; Status Cancel Acetaminophen (Tylenol) 650 mg PRN Q6HRS PRN PO PAIN; Start 12/27/18 at 15:00; Status UNV Lorazepam (Ativan) 0.5 mg PRN Q4HRS PRN PO AGITATION Last administered on at 07:32; Start 12/27/18 at 15:00 Al Hydroxide/Mg Hydroxide (Mylanta Plus Xs) 30 ml PRN Q4HRS PRN PO DYSPEPSIA; Start 12/27/18 at 15:00 Acetaminophen/ Codeine Phosphate (Tylenol #3) 1 tab PRN Q6HRS PRN PO PAIN Last administered on 12/29/18at 00:47; Start 12/27/18 at 15:15 Atorvastatin Calcium (Lipitor) 10 mg QHS PO Last administered on 12/30/18at 20: 34; Start 12/27/18 at 21:00 Gabapentin (Neurontin) 100 mg TID PO Last administered on 12/31/18 12:55; Start 12/27/18 at 21:00 Magnesium Hydroxide (Milk Of Magnesia) 2,400 mg PRN Q6HRS PRN PO CONSTIPATION; Start 12/27/18 at 15:15 Memantine (Namenda) 10 mg BID PO Last administered on 12/31/18 07:30; Start at 21:00 Polyethylene Glycol (miraLAX) 17 gm PRN DAILY PRN PO CONSTIPATION; Start at 15:15 Quetiapine Fumarate (SEROquel) 150 mg TID PO Last administered on 12/31/18 12: 55; Start 12/27/18 at 21:00 Trazodone HCl (Desyrel) 50 mg BID PO Last administered on 12/28/18 08:27; Start 12/27/18 at 21:00; Stop 12/28/18 at 17:59; Status DC Cephalexin HCl (Keflex) 500 mg TID PO Last administered on 12/29/18 15:33; Start 12/27/18 at 21:00; Stop 12/29/18 at 17:51; Status DC Sertraline HCl (Zoloft) 25 mg DAILY PO Last administered on 12/31/18 07:30; Start 12/29/18 at 09:00 Trazodone HCl (Desyrel) 100 mg QHS PO Last administered on 12/30/18 20:34; Start 12/28/18 at 21:00 Trazodone HCl (Desyrel) 100 mg PRN QHS PRN PO INSOMNIA Last administered on 22:46; Start 12/28/18 at 18:00 Mirtazapine (Remeron) 7.5 mg QHS PO Last administered on 12/30/18 20:35; Start 12/29/18 at 21:00 Olanzapine (ZyPREXA ZYDIS) 2.5 mg PRN Q2HR PRN PO PSYCHOSIS Last administered on 12/31/18 12:55; Start 12/30/18 at 11:15 Divalproex Sodium (Depakote Sprinkles) 125 mg BID@0900,1700 PO Last administered on 12/31/18at 17:39; Start 12/31/18 at 09:00 Active Scripts Active Reported Cephalexin 500 Mg Capsule 500 Mg PO TID Gabapentin 600 Mg Tablet 100 Mg PO TID Seroquel (Quetiapine Fumarate) 100 Mg Tablet 150 Mg PO TID Atorvastatin Calcium 10 Mg Tablet 10 Mg PO QHS Namenda (Memantine Hcl) 10 Mg Tablet 10 Mg PO BID Trazodone Hcl 50 Mg Tablet 50 Mg PO BID Miralax (Polyethylene Glycol 3350) 17 Gm Powd.pack 17 Gm PO PRN DAILY PRN Tylenol With Codeine #3 Tablet (Acetaminophen With Codeine) 1 Each Tablet 1 Each PO PRN Q6HRS PRN Milk Of Magnesia (Magnesium Hydroxide) 2,400 Mg/10 Ml Oral.susp 30 Ml PO PRN Q6HRS PRN Tylenol (Acetaminophen) 325 Mg Tablet 650 Mg PO PRN Q6HRS PRN Ativan (Lorazepam) 1 Mg Tablet 0.5 Mg PO PRN Q4HRS PRN Mag-Al Plus Xs Suspension (Mag Hydrox/Al Hydrox/Simeth) 30 Ml Oral.susp 30 Ml PO PRN Q4HRS PRN I have reviewed the current psychotropics carefully including drug interactions. Risk benefit ratio favors no change other than as noted in my dictated progress note. Diagnosis: Problems: (1) Dementia (2) Behavior problem (3) Medical clearance for psychiatric admission (4) Anxiety disorder (5) Dementia in Alzheimer's disease with delusions (6) Dementia in Alzheimer's disease with depression (7) Dementia, vascular, with delusions (8) Dementia, vascular, with depression (9) Impulse control disorder NAJMA MCCAIN MD Dec 31, 2018 19:37
[2018-12-31] MEDS: traZODone 100 MG TABLET. PO SCH (19:53)
[2018-12-31] MEDS: MIRTAZAPINE 7.5 MG TABLET. PO SCH ×2 (19:53→21:34)
[2018-12-31] MEDS: ATORVASTATIN CALCIUM 10 MG TABLET. PO SCH (19:53)
[2018-12-31] MEDS: traZODone 100 MG TABLET. PO PRN (21:56)
[2018-12-31] MEDS: ACETAMINOPHEN/CODEINE 300/30MG TABLET PO PRN (23:55)
[2019-01-01 06:06] VITALS: BP 105/65
[2019-01-01] MEDS: DIVALPROEX 125 MG CAP.SPRINK PO SCH ×2 (07:48→17:34)
[2019-01-01] MEDS: GABAPENTIN 100 MG CAPSULE. PO SCH ×3 (07:48→19:51)
[2019-01-01] MEDS: QUEtiapine 50 MG TABLET. PO SCH ×3 (07:48→19:51)
[2019-01-01] MEDS: LORazepam 0.5 MG TABLET PO PRN (07:49)
[2019-01-01] MEDS: SERTRALINE 25 MG TABLET. PO SCH (07:49)
--- NOTE | 2019-01-01 08:28 | RAD ---
2 view study of the right hip and AP view of the pelvis Clinical indications: Right hip pain. FINDINGS: No acute fracture or dislocation or osteolytic process is seen. No significant arthritic change is evident. IMPRESSION: No acute fracture. Electronically signed by: Rudolph Diaz MD (01/01/2019 8:25 AM) [facility]
[2019-01-01 15:43] VITALS: BP 136/85
--- NOTE | 2019-01-01 18:24 | PN ---
DATE: 12/30/2018 PSYCHIATRIC PROGRESS NOTE This late entry 12/30/2018 covers elements, not covered in my initial note. SUBJECTIVE: I met with the patient in the evening. The patient slept 5 hours previous night. Nursing staff had paged me as an emergency earlier in the day as the patient was extremely agitated, exit seeking, cursing especially after a shower, ramming the door with her walker, received Zyprexa Zydis, has been tearful much of the day, confused. REVIEW OF SYSTEMS: No CV, , pulmonary, eye, ENT system symptoms on review. Reliability poor. MENTAL STATUS EXAM: Oriented to herself. Insight, judgment, recent and remote memory, attention, concentration, fund of knowledge poor, consistent with her diagnosis mentioned in my initial note. IMPRESSION: Major neurocognitive disorder, Alzheimer, vascular with delusion, depression, behavioral disturbance; anxiety disorder, unspecified; impulse control disorder, unspecified. PLAN: Start Depakote Sprinkles 125 mg 9 a.m., 5:00 p.m. Check CBC, CMP, valproic acid level in 3 days. Rest unchanged per initial note. MAN Baldemar MCCAIN MD DR: ERIN/rajesh JOB#: [id number] / [id number]
--- NOTE | 2019-01-01 18:24 | PN ---
DATE: 12/31/2018 PSYCHIATRIC PROGRESS NOTE This is a late entry 12/31/2018, covers elements not covered in my initial note. SUBJECTIVE: I met with the patient in the evening. The patient slept for 4-3/4 hours previous night. We had an x-ray of her leg because there is some complain of lump in her leg, but this seems to be arthritic. She had bad marked mood lability in the morning, evening was better. REVIEW OF SYSTEMS: No CV, , pulmonary, eye, ENT system symptoms on review. Reliability poor. MENTAL STATUS EXAM: Oriented to herself. Insight, judgment, recent and remote memory, attention, concentration, fund of knowledge poor, consistent with her diagnoses mentioned in my initial note. PLAN: Increase Zoloft to 50 mg a day after she has been on 25 for 3 days and Remeron to 15 mg at bedtime. Rest unchanged for now. NAJMA MCCAIN MD DR: ERIN/rajesh JOB#: [id number] / [id number]
[2019-01-01] MEDS: ATORVASTATIN CALCIUM 10 MG TABLET. PO SCH (19:51)
[2019-01-01] MEDS: traZODone 100 MG TABLET. PO SCH (19:51)
[2019-01-01] MEDS: DOXYCYCLINE HYCLATE 100 MG TABLET PO SCH (19:53)
[2019-01-01] MEDS: MIRTAZAPINE 7.5 MG TABLET. PO SCH (19:53)
[2019-01-01] MEDS: BACITRACIN ZINC TOPICAL OINT PACKET. TP SCH (21:00)
--- NOTE | 2019-01-01 22:10 | PDOC ---
Exam Note: Yoel Note: Please also refer to the separate dictated note~for this date of service dictated separately.~Patient seen individually. Discussed the patient with Nursing staff reviewed the chart.~Reviewed interim history and current functioning. Reviewed vital signs,~Labs/ Radiology~and current medications noted below. Continue current treatment with the changes noted in the dictated addendum note Assessment: Vital Signs: Vital Signs Date Time Temp Pulse Resp B/P (MAP) Pulse Ox O2 Delivery O2 Flow Rate FiO2 01/01/19 15:43 96.4 60 16 136/85 (102) 96 12/30/18 15:35 Nasal Cannula I&O Intake and Output 01/01/19 07:00 Intake Total 420 ml Balance 420 ml Intake Oral 420 ml Current Medications: Meds: Current Medications Acetaminophen (Tylenol) 650 mg PRN Q6HRS PRN PO PAIN / TEMP Last administered on 12/30/18at 20:36; Start 12/27/18 at 14:45 Multi-Ingredient Ointment (Analgesic [place]) 1 halle PRN QID PRN TP MUSCLE PAIN; Start 12/27/18 at 14:45 Al Hydroxide/Mg Hydroxide (Mylanta Plus Xs) 15 ml PRN AFTMEALHC PRN PO DYSPEPSIA; Start 12/27/18 at 14:45; Status Cancel Magnesium Hydroxide (Milk Of Magnesia) 2,400 mg PRN QHS PRN PO CONSTIPATION; Start 12/27/18 at 14:45; Status Cancel Acetaminophen (Tylenol) 650 mg PRN Q6HRS PRN PO PAIN; Start 12/27/18 at 15:00; Status UNV Lorazepam (Ativan) 0.5 mg PRN Q4HRS PRN PO AGITATION Last administered on at 07:49; Start 12/27/18 at 15:00 Al Hydroxide/Mg Hydroxide (Mylanta Plus Xs) 30 ml PRN Q4HRS PRN PO DYSPEPSIA; Start 12/27/18 at 15:00 Acetaminophen/ Codeine Phosphate (Tylenol #3) 1 tab PRN Q6HRS PRN PO PAIN Last administered on 12/31/18at 23:55; Start 12/27/18 at 15:15 Atorvastatin Calcium (Lipitor) 10 mg QHS PO Last administered on 01/01/19at 19: 51; Start 12/27/18 at 21:00 Gabapentin (Neurontin) 100 mg TID PO Last administered on 01/01/19 19:51; Start 12/27/18 at 21:00 Magnesium Hydroxide (Milk Of Magnesia) 2,400 mg PRN Q6HRS PRN PO CONSTIPATION; Start 12/27/18 at 15:15 Memantine (Namenda) 10 mg BID PO Last administered on 12/31/18 19:53; Start at 21:00; Stop 12/31/18 at 21:12; Status DC Polyethylene Glycol (miraLAX) 17 gm PRN DAILY PRN PO CONSTIPATION; Start at 15:15 Quetiapine Fumarate (SEROquel) 150 mg TID PO Last administered on 01/01/19 19: 51; Start 12/27/18 at 21:00 Trazodone HCl (Desyrel) 50 mg BID PO Last administered on 12/28/18 08:27; Start 12/27/18 at 21:00; Stop 12/28/18 at 17:59; Status DC Cephalexin HCl (Keflex) 500 mg TID PO Last administered on 12/29/18 15:33; Start 12/27/18 at 21:00; Stop 12/29/18 at 17:51; Status DC Sertraline HCl (Zoloft) 25 mg DAILY PO Last administered on 12/31/18 07:30; Start 12/29/18 at 09:00; Stop 12/31/18 at 21:12; Status DC Trazodone HCl (Desyrel) 100 mg QHS PO Last administered on 01/01/19 19:51; Start 12/28/18 at 21:00 Trazodone HCl (Desyrel) 100 mg PRN QHS PRN PO INSOMNIA Last administered on 21:56; Start 12/28/18 at 18:00 Mirtazapine (Remeron) 7.5 mg QHS PO Last administered on 12/31/18 19:53; Start 12/29/18 at 21:00; Stop 12/31/18 at 21:12; Status DC Olanzapine (ZyPREXA ZYDIS) 2.5 mg PRN Q2HR PRN PO PSYCHOSIS Last administered on 12/31/18 22:58; Start 12/30/18 at 11:15 Divalproex Sodium (Depakote Sprinkles) 125 mg BID@0900,1700 PO Last administered on 01/01/19 17:34; Start 12/31/18 at 09:00 Mirtazapine (Remeron) 15 mg QHS PO Last administered on 01/01/19 19:53; Start 12/31/18 at 21:30 Sertraline HCl (Zoloft) 50 mg DAILY PO Last administered on 01/01/19at 07:49; Start 01/01/19 at 09:00 Doxycycline Hyclate (Vibra-Tab) 100 mg BID PO Last administered on 01/01/19 19 :53; Start 01/01/19 at 21:00; Stop 01/11/19 at 20:00 Bacitracin (Bacitracin Topical Pkt) 1 pkt HS TP ; Start 01/01/19 at 21:00 Active Scripts Active Reported Cephalexin 500 Mg Capsule 500 Mg PO TID Gabapentin 600 Mg Tablet 100 Mg PO TID Seroquel (Quetiapine Fumarate) 100 Mg Tablet 150 Mg PO TID Atorvastatin Calcium 10 Mg Tablet 10 Mg PO QHS Namenda (Memantine Hcl) 10 Mg Tablet 10 Mg PO BID Trazodone Hcl 50 Mg Tablet 50 Mg PO BID Miralax (Polyethylene Glycol 3350) 17 Gm Powd.pack 17 Gm PO PRN DAILY PRN Tylenol With Codeine #3 Tablet (Acetaminophen With Codeine) 1 Each Tablet 1 Each PO PRN Q6HRS PRN Milk Of Magnesia (Magnesium Hydroxide) 2,400 Mg/10 Ml Oral.susp 30 Ml PO PRN Q6HRS PRN Tylenol (Acetaminophen) 325 Mg Tablet 650 Mg PO PRN Q6HRS PRN Ativan (Lorazepam) 1 Mg Tablet 0.5 Mg PO PRN Q4HRS PRN Mag-Al Plus Xs Suspension (Mag Hydrox/Al Hydrox/Simeth) 30 Ml Oral.susp 30 Ml PO PRN Q4HRS PRN I have reviewed the current psychotropics carefully including drug interactions. Risk benefit ratio favors no change other than as noted in my dictated progress note. Diagnosis: Problems: (1) Dementia (2) Behavior problem (3) Medical clearance for psychiatric admission (4) Anxiety disorder (5) Dementia in Alzheimer's disease with delusions (6) Dementia in Alzheimer's disease with depression (7) Dementia, vascular, with delusions (8) Dementia, vascular, with depression (9) Impulse control disorder NAJMA MCCAIN MD Jan 01, 2019 22:10
[2019-01-02 05:36] VITALS: BP 95/60
[2019-01-02] MEDS: SERTRALINE 25 MG TABLET. PO SCH (07:54)
[2019-01-02] MEDS: DIVALPROEX 125 MG CAP.SPRINK PO SCH ×2 (07:54→17:07)
[2019-01-02] MEDS: DOXYCYCLINE HYCLATE 100 MG TABLET PO SCH ×2 (07:54→20:38)
[2019-01-02] MEDS: QUEtiapine 50 MG TABLET. PO SCH ×3 (07:54→20:38)
[2019-01-02] MEDS: GABAPENTIN 100 MG CAPSULE. PO SCH ×3 (07:56→20:38)
[2019-01-02 08:25] LABS: ALBUMIN 2.9 g/dL (3.4-5.0); ALBUMIN/GLOBULIN RATIO 0.7 (1.0-1.7); ALK PHOS 79 U/L (46-116); ALT (SGPT) 14 U/L (14-59); ANION GAP 1 (6-14); AST (SGOT) 9 U/L (15-37); BLOOD UREA NITROGEN 11 mg/dL (7-20); BUN/CREATININE RATIO 14 (6-20); CALCIUM 9.2 mg/dL (8.5-10.1); CARBON DIOXIDE 33 mmol/L (21-32); CHLORIDE 107 mmol/L (98-107); CREATININE 0.8 mg/dL (0.6-1.0); GFR 70.5; GLUCOSE 100 mg/dL (70-99); POTASSIUM 3.9 mmol/L (3.5-5.1); SODIUM 141 mmol/L (136-145); TOTAL BILIRUBIN 0.4 mg/dL (0.2-1.0); TOTAL PROTEIN 7.2 g/dL (6.4-8.2)
[2019-01-02 08:26] LABS: VAL ACID 16 mcg/mL (50-100)
[2019-01-02 08:44] LABS: BASO % 0 % (0-3); EOS # 0.9 x10^3/uL (0.0-0.7); EOS % 19 % (0-3); HEMATOCRIT 37.6 % (36.0-47.0); HEMOGLOBIN 12.2 g/dL (12.0-15.5); LYMPH # 1.1 x10^3/uL (1.0-4.8); LYMPH % 24 % (24-48); MEAN CORPUSCULAR HEMOGLOBIN 27 pg (25-35); MEAN CORPUSCULAR HGB CONC 33 g/dL (31-37); MEAN CORPUSCULAR VOLUME 83 fL (79-100); MONO # 0.4 x10^3/uL (0.0-1.1); MONO % 9 % (0-9); NEUT # 2.1 x10^3uL (1.8-7.7); NEUT % 48 % (31-73); PLATELET COUNT 272 x10^3/uL (140-400); RED BLOOD COUNT 4.51 x10^6/uL (3.50-5.40); RED CELL DISTRIBUTION WIDTH 17.1 % (11.5-14.5); WHITE BLOOD COUNT 4.5 x10^3/uL (4.0-11.0)
[2019-01-02 16:19] VITALS: BP 108/73
[2019-01-02] MEDS: ATORVASTATIN CALCIUM 10 MG TABLET. PO SCH (20:39)
[2019-01-02] MEDS: MIRTAZAPINE 7.5 MG TABLET. PO SCH (20:39)
[2019-01-02] MEDS: traZODone 100 MG TABLET. PO SCH (20:39)
[2019-01-02] MEDS: BACITRACIN ZINC TOPICAL OINT PACKET. TP SCH (20:40)
--- NOTE | 2019-01-02 21:09 | PN ---
DATE: 01/01/2019 PSYCHIATRIC PROGRESS NOTE This late entry 01/01/2019 covers elements not covered in my initial note. SUBJECTIVE: I met with the patient in the evening. Overall, per nursing report, the patient is doing a little better. She was agitated previous night, did receive Zyprexa p.r.n. along with Tylenol No. 3 and trazodone, then slept better. She did take a shower. REVIEW OF SYSTEMS: No CV, , pulmonary, eye, ENT system symptoms on review. Reliability poor. MENTAL STATUS EXAM: Oriented to herself. Insight, judgment, recent and remote memory, attention, concentration, fund of knowledge poor, consistent with her diagnosis mentioned in my initial note. PLAN: No change from initial note. We have increased the Zoloft gradually to 50 mg a day, Remeron to 15 mg at bedtime. Continue Depakote at current dosage, Namenda has been stopped. Maintain trazodone and Ativan p.r.n. NAJMA MCCAIN MD DR: ERIN/rajesh JOB#: [id number] / [id number]
[2019-01-02] MEDS: LORazepam 0.5 MG TABLET PO PRN (21:50)
--- NOTE | 2019-01-02 22:20 | PDOC ---
Exam Note: Yoel Note: Please also refer to the separate dictated note~for this date of service dictated separately.~Patient seen individually. Discussed the patient with Nursing staff reviewed the chart.~Reviewed interim history and current functioning. Reviewed vital signs,~Labs/ Radiology~and current medications noted below. Continue current treatment with the changes noted in the dictated addendum note Assessment: Vital Signs: Vital Signs Date Time Temp Pulse Resp B/P (MAP) Pulse Ox O2 Delivery O2 Flow Rate FiO2 01/02/19 16:19 98.3 80 16 108/73 (85) 95 01/02/19 05:36 Room Air I&O Intake and Output 01/02/19 06:59 Intake Total 460 ml Balance 460 ml Intake Oral 460 ml Labs: Laboratory Tests Test 01/02/19 07:30 White Blood Count 4.5 x10^3/uL (4.0-11.0) Red Blood Count 4.51 x10^6/uL (3.50-5.40) Hemoglobin 12.2 g/dL (12.0-15.5) Hematocrit 37.6 % (36.0-47.0) Mean Corpuscular Volume 83 fL (79-100) Mean Corpuscular Hemoglobin 27 pg (25-35) Mean Corpuscular Hemoglobin Concent 33 g/dL (31-37) Red Cell Distribution Width 17.1 % (11.5-14.5) H Platelet Count 272 x10^3/uL (140-400) Neutrophils (%) (Auto) 48 % (31-73) Lymphocytes (%) (Auto) 24 % (24-48) Monocytes (%) (Auto) 9 % (0-9) Eosinophils (%) (Auto) 19 % (0-3) H Basophils (%) (Auto) 0 % (0-3) Neutrophils # (Auto) 2.1 x10^3uL (1.8-7.7) Lymphocytes # (Auto) 1.1 x10^3/uL (1.0-4.8) Monocytes # (Auto) 0.4 x10^3/uL (0.0-1.1) Eosinophils # (Auto) 0.9 x10^3/uL (0.0-0.7) H Basophils # (Auto) 0.0 x10^3/uL (0.0-0.2) Sodium Level 141 mmol/L (136-145) Potassium Level 3.9 mmol/L (3.5-5.1) Chloride Level 107 mmol/L (98-107) Carbon Dioxide Level 33 mmol/L (21-32) H Anion Gap 1 (6-14) L Blood Urea Nitrogen 11 mg/dL (7-20) Creatinine 0.8 mg/dL (0.6-1.0) Estimated GFR (Cockcroft-Gault) 70.5 BUN/Creatinine Ratio 14 (6-20) Glucose Level 100 mg/dL (70-99) H Calcium Level 9.2 mg/dL (8.5-10.1) Total Bilirubin 0.4 mg/dL (0.2-1.0) Aspartate Amino Transferase (AST) 9 U/L (15-37) L Alanine Aminotransferase (ALT) 14 U/L (14-59) Alkaline Phosphatase 79 U/L (46-116) Total Protein 7.2 g/dL (6.4-8.2) Albumin 2.9 g/dL (3.4-5.0) L Albumin/Globulin Ratio 0.7 (1.0-1.7) L Valproic Acid Level 16 mcg/mL (50-100) L Valproic Acid Last Dose Date 01/01/2019 Valproic Acid Last Dose Time 2100 Current Medications: Meds: Current Medications Acetaminophen (Tylenol) 650 mg PRN Q6HRS PRN PO PAIN / TEMP Last administered on 12/30/18at 20:36; Start 12/27/18 at 14:45 Multi-Ingredient Ointment (Analgesic [place]) 1 halle PRN QID PRN TP MUSCLE PAIN; Start 12/27/18 at 14:45 Al Hydroxide/Mg Hydroxide (Mylanta Plus Xs) 15 ml PRN AFTMEALHC PRN PO DYSPEPSIA; Start 12/27/18 at 14:45; Status Cancel Magnesium Hydroxide (Milk Of Magnesia) 2,400 mg PRN QHS PRN PO CONSTIPATION; Start 12/27/18 at 14:45; Status Cancel Acetaminophen (Tylenol) 650 mg PRN Q6HRS PRN PO PAIN; Start 12/27/18 at 15:00; Status UNV Lorazepam (Ativan) 0.5 mg PRN Q4HRS PRN PO AGITATION Last administered on 21:50; Start 12/27/18 at 15:00 Al Hydroxide/Mg Hydroxide (Mylanta Plus Xs) 30 ml PRN Q4HRS PRN PO DYSPEPSIA; Start 12/27/18 at 15:00 Acetaminophen/ Codeine Phosphate (Tylenol #3) 1 tab PRN Q6HRS PRN PO PAIN Last administered on 12/31/18 23:55; Start 12/27/18 at 15:15 Atorvastatin Calcium (Lipitor) 10 mg QHS PO Last administered on 01/02/19 20: 39; Start 12/27/18 at 21:00 Gabapentin (Neurontin) 100 mg TID PO Last administered on 01/02/19 20:38; Start 12/27/18 at 21:00 Magnesium Hydroxide (Milk Of Magnesia) 2,400 mg PRN Q6HRS PRN PO CONSTIPATION; Start 12/27/18 at 15:15 Memantine (Namenda) 10 mg BID PO Last administered on 12/31/18 19:53; Start at 21:00; Stop 12/31/18 at 21:12; Status DC Polyethylene Glycol (miraLAX) 17 gm PRN DAILY PRN PO CONSTIPATION; Start at 15:15 Quetiapine Fumarate (SEROquel) 150 mg TID PO Last administered on 01/02/19 20: 38; Start 12/27/18 at 21:00 Trazodone HCl (Desyrel) 50 mg BID PO Last administered on 12/28/18 08:27; Start 12/27/18 at 21:00; Stop 12/28/18 at 17:59; Status DC Cephalexin HCl (Keflex) 500 mg TID PO Last administered on 12/29/18 15:33; Start 12/27/18 at 21:00; Stop 12/29/18 at 17:51; Status DC Sertraline HCl (Zoloft) 25 mg DAILY PO Last administered on 12/31/18 07:30; Start 12/29/18 at 09:00; Stop 12/31/18 at 21:12; Status DC Trazodone HCl (Desyrel) 100 mg QHS PO Last administered on 01/02/19 20:39; Start 12/28/18 at 21:00 Trazodone HCl (Desyrel) 100 mg PRN QHS PRN PO INSOMNIA Last administered on 21:56; Start 12/28/18 at 18:00 Mirtazapine (Remeron) 7.5 mg QHS PO Last administered on 12/31/18 19:53; Start 12/29/18 at 21:00; Stop 12/31/18 at 21:12; Status DC Olanzapine (ZyPREXA ZYDIS) 2.5 mg PRN Q2HR PRN PO PSYCHOSIS Last administered on 12/31/18 22:58; Start 12/30/18 at 11:15 Divalproex Sodium (Depakote Sprinkles) 125 mg BID@0900,1700 PO Last administered on 01/02/19 17:07; Start 12/31/18 at 09:00 Mirtazapine (Remeron) 15 mg QHS PO Last administered on 01/02/19 20:39; Start 12/31/18 at 21:30 Sertraline HCl (Zoloft) 50 mg DAILY PO Last administered on 01/02/19 07:54; Start 01/01/19 at 09:00; Stop 01/03/19 at 23:50 Doxycycline Hyclate (Vibra-Tab) 100 mg BID PO Last administered on 01/02/19 20 :38; Start 01/01/19 at 21:00; Stop 01/11/19 at 20:00 Bacitracin (Bacitracin Topical Pkt) 1 pkt HS TP Last administered on 01/02/19 20:40; Start 01/01/19 at 21:00 Sertraline HCl (Zoloft) 75 mg DAILY PO ; Start 01/04/19 at 09:00 Active Scripts Active Reported Cephalexin 500 Mg Capsule 500 Mg PO TID Gabapentin 600 Mg Tablet 100 Mg PO TID Seroquel (Quetiapine Fumarate) 100 Mg Tablet 150 Mg PO TID Atorvastatin Calcium 10 Mg Tablet 10 Mg PO QHS Namenda (Memantine Hcl) 10 Mg Tablet 10 Mg PO BID Trazodone Hcl 50 Mg Tablet 50 Mg PO BID Miralax (Polyethylene Glycol 3350) 17 Gm Powd.pack 17 Gm PO PRN DAILY PRN Tylenol With Codeine #3 Tablet (Acetaminophen With Codeine) 1 Each Tablet 1 Each PO PRN Q6HRS PRN Milk Of Magnesia (Magnesium Hydroxide) 2,400 Mg/10 Ml Oral.susp 30 Ml PO PRN Q6HRS PRN Tylenol (Acetaminophen) 325 Mg Tablet 650 Mg PO PRN Q6HRS PRN Ativan (Lorazepam) 1 Mg Tablet 0.5 Mg PO PRN Q4HRS PRN Mag-Al Plus Xs Suspension (Mag Hydrox/Al Hydrox/Simeth) 30 Ml Oral.susp 30 Ml PO PRN Q4HRS PRN I have reviewed the current psychotropics carefully including drug interactions. Risk benefit ratio favors no change other than as noted in my dictated progress note. Diagnosis: Problems: (1) Dementia (2) Behavior problem (3) Medical clearance for psychiatric admission (4) Anxiety disorder (5) Dementia in Alzheimer's disease with delusions (6) Dementia in Alzheimer's disease with depression (7) Dementia, vascular, with delusions (8) Dementia, vascular, with depression (9) Impulse control disorder NAJMA MCCAIN MD Jan 02, 2019 22:20
[2019-01-03 06:00] VITALS: BP 107/65
[2019-01-03] MEDS: QUEtiapine 50 MG TABLET. PO SCH ×3 (07:51→20:04)
[2019-01-03] MEDS: GABAPENTIN 100 MG CAPSULE. PO SCH ×3 (07:51→20:02)
[2019-01-03] MEDS: DIVALPROEX 125 MG CAP.SPRINK PO SCH ×2 (07:52→17:13)
[2019-01-03] MEDS: SERTRALINE 25 MG TABLET. PO SCH (07:52)
[2019-01-03] MEDS: DOXYCYCLINE HYCLATE 100 MG TABLET PO SCH ×2 (07:52→20:02)
[2019-01-03 15:49] VITALS: BP 112/69
[2019-01-03] MEDS: MIRTAZAPINE 7.5 MG TABLET. PO SCH (20:02)
[2019-01-03] MEDS: ATORVASTATIN CALCIUM 10 MG TABLET. PO SCH (20:03)
[2019-01-03] MEDS: traZODone 100 MG TABLET. PO SCH (20:03)
[2019-01-03] MEDS: BACITRACIN ZINC TOPICAL OINT PACKET. TP SCH (20:05)
--- NOTE | 2019-01-03 20:27 | PN ---
DATE: 01/02/2019 PSYCHIATRIC PROGRESS NOTE This late entry 01/02/2019 covers elements not covered in my initial note. SUBJECTIVE: I met with the patient in the evening. The patient slept 4-1/2 hours previous night. She has been calmer, cooperative, confused, had a better day, rambling in her speech and word salad. Seems to respond to her first name as I met with her. Repeatedly stating she is from [place], which is accurate. REVIEW OF SYSTEMS: No CV, , pulmonary, eye, ENT system symptoms on review. Gait unsteady with walker. Reliability poor. MENTAL STATUS EXAM: Oriented to herself. Insight, judgment, recent and remote memory, attention, concentration, fund of knowledge poor, consistent with her diagnosis mentioned in my initial note. PLAN: Valproic acid level subtherapeutic at 16. We will increase the Zoloft to 75 mg a day after she has been on 50 for 3 days. May need to adjust Depakote as well if agitation resurfaces. MAN Baldemar MCCAIN MD DR: ERIN/rajesh JOB#: [id number] / [id number]
[2019-01-03] MEDS: LACTOBACILLUS RHAMNOSUS GG 1 CAPSULE. PO SCH (20:30)
--- NOTE | 2019-01-03 22:22 | PDOC ---
Exam Note: Yoel Note: Please also refer to the separate dictated note~for this date of service dictated separately.~Patient seen individually. Discussed the patient with Nursing staff reviewed the chart.~Reviewed interim history and current functioning. Reviewed vital signs,~Labs/ Radiology~and current medications noted below. Continue current treatment with the changes noted in the dictated addendum note Assessment: Vital Signs: Vital Signs Date Time Temp Pulse Resp B/P (MAP) Pulse Ox O2 Delivery O2 Flow Rate FiO2 01/03/19 15:49 97.6 106 20 112/69 (83) 94 01/02/19 05:36 Room Air I&O Intake and Output 01/03/19 06:59 Intake Total 800 ml Balance 800 ml Intake Oral 800 ml Current Medications: Meds: Current Medications Acetaminophen (Tylenol) 650 mg PRN Q6HRS PRN PO PAIN / TEMP Last administered on 12/30/18at 20:36; Start 12/27/18 at 14:45 Multi-Ingredient Ointment (Analgesic [place]) 1 halle PRN QID PRN TP MUSCLE PAIN; Start 12/27/18 at 14:45 Al Hydroxide/Mg Hydroxide (Mylanta Plus Xs) 15 ml PRN AFTMEALHC PRN PO DYSPEPSIA; Start 12/27/18 at 14:45; Status Cancel Magnesium Hydroxide (Milk Of Magnesia) 2,400 mg PRN QHS PRN PO CONSTIPATION; Start 12/27/18 at 14:45; Status Cancel Acetaminophen (Tylenol) 650 mg PRN Q6HRS PRN PO PAIN; Start 12/27/18 at 15:00; Status UNV Lorazepam (Ativan) 0.5 mg PRN Q4HRS PRN PO AGITATION Last administered on at 21:50; Start 12/27/18 at 15:00 Al Hydroxide/Mg Hydroxide (Mylanta Plus Xs) 30 ml PRN Q4HRS PRN PO DYSPEPSIA; Start 12/27/18 at 15:00 Acetaminophen/ Codeine Phosphate (Tylenol #3) 1 tab PRN Q6HRS PRN PO PAIN Last administered on 12/31/18at 23:55; Start 12/27/18 at 15:15 Atorvastatin Calcium (Lipitor) 10 mg QHS PO Last administered on 01/03/19at 20: 03; Start 12/27/18 at 21:00 Gabapentin (Neurontin) 100 mg TID PO Last administered on 01/03/19 20:02; Start 12/27/18 at 21:00 Magnesium Hydroxide (Milk Of Magnesia) 2,400 mg PRN Q6HRS PRN PO CONSTIPATION; Start 12/27/18 at 15:15 Memantine (Namenda) 10 mg BID PO Last administered on 12/31/18 19:53; Start at 21:00; Stop 12/31/18 at 21:12; Status DC Polyethylene Glycol (miraLAX) 17 gm PRN DAILY PRN PO CONSTIPATION; Start at 15:15 Quetiapine Fumarate (SEROquel) 150 mg TID PO Last administered on 01/03/19 20: 04; Start 12/27/18 at 21:00 Trazodone HCl (Desyrel) 50 mg BID PO Last administered on 12/28/18 08:27; Start 12/27/18 at 21:00; Stop 12/28/18 at 17:59; Status DC Cephalexin HCl (Keflex) 500 mg TID PO Last administered on 12/29/18 15:33; Start 12/27/18 at 21:00; Stop 12/29/18 at 17:51; Status DC Sertraline HCl (Zoloft) 25 mg DAILY PO Last administered on 12/31/18 07:30; Start 12/29/18 at 09:00; Stop 12/31/18 at 21:12; Status DC Trazodone HCl (Desyrel) 100 mg QHS PO Last administered on 01/03/19 20:03; Start 12/28/18 at 21:00 Trazodone HCl (Desyrel) 100 mg PRN QHS PRN PO INSOMNIA Last administered on 21:56; Start 12/28/18 at 18:00 Mirtazapine (Remeron) 7.5 mg QHS PO Last administered on 12/31/18 19:53; Start 12/29/18 at 21:00; Stop 12/31/18 at 21:12; Status DC Olanzapine (ZyPREXA ZYDIS) 2.5 mg PRN Q2HR PRN PO PSYCHOSIS Last administered on 01/03/19 18:14; Start 12/30/18 at 11:15 Divalproex Sodium (Depakote Sprinkles) 125 mg BID@0900,1700 PO Last administered on 01/03/19 17:13; Start 12/31/18 at 09:00 Mirtazapine (Remeron) 15 mg QHS PO Last administered on 01/03/19 20:02; Start 12/31/18 at 21:30 Sertraline HCl (Zoloft) 50 mg DAILY PO Last administered on 01/03/19 07:52; Start 01/01/19 at 09:00; Stop 01/03/19 at 23:50 Doxycycline Hyclate (Vibra-Tab) 100 mg BID PO Last administered on 01/03/19 20 :02; Start 01/01/19 at 21:00; Stop 01/11/19 at 20:00 Bacitracin (Bacitracin Topical Pkt) 1 pkt HS TP Last administered on 01/03/19 20:05; Start 01/01/19 at 21:00 Sertraline HCl (Zoloft) 75 mg DAILY PO ; Start 01/04/19 at 09:00 Lactobacillus Rhamnosus (Culturelle) 1 cap BID PO Last administered on 20:30; Start 01/03/19 at 21:00 Active Scripts Active Reported Cephalexin 500 Mg Capsule 500 Mg PO TID Gabapentin 600 Mg Tablet 100 Mg PO TID Seroquel (Quetiapine Fumarate) 100 Mg Tablet 150 Mg PO TID Atorvastatin Calcium 10 Mg Tablet 10 Mg PO QHS Namenda (Memantine Hcl) 10 Mg Tablet 10 Mg PO BID Trazodone Hcl 50 Mg Tablet 50 Mg PO BID Miralax (Polyethylene Glycol 3350) 17 Gm Powd.pack 17 Gm PO PRN DAILY PRN Tylenol With Codeine #3 Tablet (Acetaminophen With Codeine) 1 Each Tablet 1 Each PO PRN Q6HRS PRN Milk Of Magnesia (Magnesium Hydroxide) 2,400 Mg/10 Ml Oral.susp 30 Ml PO PRN Q6HRS PRN Tylenol (Acetaminophen) 325 Mg Tablet 650 Mg PO PRN Q6HRS PRN Ativan (Lorazepam) 1 Mg Tablet 0.5 Mg PO PRN Q4HRS PRN Mag-Al Plus Xs Suspension (Mag Hydrox/Al Hydrox/Simeth) 30 Ml Oral.susp 30 Ml PO PRN Q4HRS PRN I have reviewed the current psychotropics carefully including drug interactions. Risk benefit ratio favors no change other than as noted in my dictated progress note. Diagnosis: Problems: (1) Dementia (2) Behavior problem (3) Medical clearance for psychiatric admission (4) Anxiety disorder (5) Dementia in Alzheimer's disease with delusions (6) Dementia in Alzheimer's disease with depression (7) Dementia, vascular, with delusions (8) Dementia, vascular, with depression (9) Impulse control disorder NAJMA MCCAIN MD Jan 03, 2019 22:22
[2019-01-04 05:41] VITALS: BP 104/59
[2019-01-04] MEDS: DIVALPROEX 125 MG CAP.SPRINK PO SCH ×2 (08:13→17:02)
[2019-01-04] MEDS: QUEtiapine 50 MG TABLET. PO SCH ×3 (08:14→20:06)
[2019-01-04] MEDS: GABAPENTIN 100 MG CAPSULE. PO SCH ×3 (08:14→20:07)
[2019-01-04] MEDS: DOXYCYCLINE HYCLATE 100 MG TABLET PO SCH ×2 (08:14→20:07)
[2019-01-04] MEDS: LACTOBACILLUS RHAMNOSUS GG 1 CAPSULE. PO SCH ×2 (08:14→20:06)
[2019-01-04] MEDS: SERTRALINE 50 MG TABLET. PO SCH (08:16)
[2019-01-04 16:34] VITALS: BP 106/65
[2019-01-04] MEDS: MIRTAZAPINE 7.5 MG TABLET. PO SCH (20:06)
[2019-01-04] MEDS: ATORVASTATIN CALCIUM 10 MG TABLET. PO SCH (20:06)
[2019-01-04] MEDS: traZODone 100 MG TABLET. PO SCH (20:07)
[2019-01-04] MEDS: BACITRACIN ZINC TOPICAL OINT PACKET. TP SCH (21:00)
--- NOTE | 2019-01-04 22:22 | PDOC ---
Exam Note: Yoel Note: Please also refer to the separate dictated note~for this date of service dictated separately.~Patient seen individually. Discussed the patient with Nursing staff reviewed the chart.~Reviewed interim history and current functioning. Reviewed vital signs,~Labs/ Radiology~and current medications noted below. Continue current treatment with the changes noted in the dictated addendum note Assessment: Vital Signs: Vital Signs Date Time Temp Pulse Resp B/P (MAP) Pulse Ox O2 Delivery O2 Flow Rate FiO2 01/04/19 16:34 99.3 91 24 106/65 (79) 97 01/02/19 05:36 Room Air I&O Intake and Output 01/04/19 07:00 Intake Total 360 ml Balance 360 ml Intake Oral 360 ml # Bowel Movements 1 Current Medications: Meds: Current Medications Acetaminophen (Tylenol) 650 mg PRN Q6HRS PRN PO PAIN / TEMP Last administered on 12/30/18at 20:36; Start 12/27/18 at 14:45 Multi-Ingredient Ointment (Analgesic [place]) 1 halle PRN QID PRN TP MUSCLE PAIN; Start 12/27/18 at 14:45 Al Hydroxide/Mg Hydroxide (Mylanta Plus Xs) 15 ml PRN AFTMEALHC PRN PO DYSPEPSIA; Start 12/27/18 at 14:45; Status Cancel Magnesium Hydroxide (Milk Of Magnesia) 2,400 mg PRN QHS PRN PO CONSTIPATION; Start 12/27/18 at 14:45; Status Cancel Acetaminophen (Tylenol) 650 mg PRN Q6HRS PRN PO PAIN; Start 12/27/18 at 15:00; Status UNV Lorazepam (Ativan) 0.5 mg PRN Q4HRS PRN PO AGITATION Last administered on at 21:50; Start 12/27/18 at 15:00 Al Hydroxide/Mg Hydroxide (Mylanta Plus Xs) 30 ml PRN Q4HRS PRN PO DYSPEPSIA; Start 12/27/18 at 15:00 Acetaminophen/ Codeine Phosphate (Tylenol #3) 1 tab PRN Q6HRS PRN PO PAIN Last administered on 12/31/18at 23:55; Start 12/27/18 at 15:15 Atorvastatin Calcium (Lipitor) 10 mg QHS PO Last administered on 01/04/19at 20: 06; Start 12/27/18 at 21:00 Gabapentin (Neurontin) 100 mg TID PO Last administered on 01/04/19 20:07; Start 12/27/18 at 21:00 Magnesium Hydroxide (Milk Of Magnesia) 2,400 mg PRN Q6HRS PRN PO CONSTIPATION; Start 12/27/18 at 15:15 Memantine (Namenda) 10 mg BID PO Last administered on 12/31/18 19:53; Start at 21:00; Stop 12/31/18 at 21:12; Status DC Polyethylene Glycol (miraLAX) 17 gm PRN DAILY PRN PO CONSTIPATION; Start at 15:15 Quetiapine Fumarate (SEROquel) 150 mg TID PO Last administered on 01/04/19 20: 06; Start 12/27/18 at 21:00 Trazodone HCl (Desyrel) 50 mg BID PO Last administered on 12/28/18 08:27; Start 12/27/18 at 21:00; Stop 12/28/18 at 17:59; Status DC Cephalexin HCl (Keflex) 500 mg TID PO Last administered on 12/29/18 15:33; Start 12/27/18 at 21:00; Stop 12/29/18 at 17:51; Status DC Sertraline HCl (Zoloft) 25 mg DAILY PO Last administered on 12/31/18 07:30; Start 12/29/18 at 09:00; Stop 12/31/18 at 21:12; Status DC Trazodone HCl (Desyrel) 100 mg QHS PO Last administered on 01/04/19 20:07; Start 12/28/18 at 21:00 Trazodone HCl (Desyrel) 100 mg PRN QHS PRN PO INSOMNIA Last administered on 21:56; Start 12/28/18 at 18:00 Mirtazapine (Remeron) 7.5 mg QHS PO Last administered on 12/31/18 19:53; Start 12/29/18 at 21:00; Stop 12/31/18 at 21:12; Status DC Olanzapine (ZyPREXA ZYDIS) 2.5 mg PRN Q2HR PRN PO PSYCHOSIS Last administered on 01/03/19 18:14; Start 12/30/18 at 11:15 Divalproex Sodium (Depakote Sprinkles) 125 mg BID@0900,1700 PO Last administered on 01/04/19 17:02; Start 12/31/18 at 09:00 Mirtazapine (Remeron) 15 mg QHS PO Last administered on 01/04/19 20:06; Start 12/31/18 at 21:30 Sertraline HCl (Zoloft) 50 mg DAILY PO Last administered on 01/03/19 07:52; Start 01/01/19 at 09:00; Stop 01/03/19 at 23:50; Status DC Doxycycline Hyclate (Vibra-Tab) 100 mg BID PO Last administered on 01/04/19 20 :07; Start 01/01/19 at 21:00; Stop 01/11/19 at 20:00 Bacitracin (Bacitracin Topical Pkt) 1 pkt HS TP Last administered on 01/04/19 21:00; Start 01/01/19 at 21:00 Sertraline HCl (Zoloft) 75 mg DAILY PO Last administered on 01/04/19 08:16; Start 01/04/19 at 09:00 Lactobacillus Rhamnosus (Culturelle) 1 cap BID PO Last administered on 20:06; Start 01/03/19 at 21:00 Active Scripts Active Reported Cephalexin 500 Mg Capsule 500 Mg PO TID Gabapentin 600 Mg Tablet 100 Mg PO TID Seroquel (Quetiapine Fumarate) 100 Mg Tablet 150 Mg PO TID Atorvastatin Calcium 10 Mg Tablet 10 Mg PO QHS Namenda (Memantine Hcl) 10 Mg Tablet 10 Mg PO BID Trazodone Hcl 50 Mg Tablet 50 Mg PO BID Miralax (Polyethylene Glycol 3350) 17 Gm Powd.pack 17 Gm PO PRN DAILY PRN Tylenol With Codeine #3 Tablet (Acetaminophen With Codeine) 1 Each Tablet 1 Each PO PRN Q6HRS PRN Milk Of Magnesia (Magnesium Hydroxide) 2,400 Mg/10 Ml Oral.susp 30 Ml PO PRN Q6HRS PRN Tylenol (Acetaminophen) 325 Mg Tablet 650 Mg PO PRN Q6HRS PRN Ativan (Lorazepam) 1 Mg Tablet 0.5 Mg PO PRN Q4HRS PRN Mag-Al Plus Xs Suspension (Mag Hydrox/Al Hydrox/Simeth) 30 Ml Oral.susp 30 Ml PO PRN Q4HRS PRN I have reviewed the current psychotropics carefully including drug interactions. Risk benefit ratio favors no change other than as noted in my dictated progress note. Diagnosis: Problems: (1) Dementia (2) Behavior problem (3) Medical clearance for psychiatric admission (4) Anxiety disorder (5) Dementia in Alzheimer's disease with delusions (6) Dementia in Alzheimer's disease with depression (7) Dementia, vascular, with delusions (8) Dementia, vascular, with depression (9) Impulse control disorder NAJMA MCCAIN MD Jan 04, 2019 22:22
[2019-01-05 05:52] VITALS: BP 113/68
[2019-01-05] MEDS: DOXYCYCLINE HYCLATE 100 MG TABLET PO SCH ×2 (07:36→19:21)
[2019-01-05] MEDS: SERTRALINE 50 MG TABLET. PO SCH (07:36)
[2019-01-05] MEDS: QUEtiapine 50 MG TABLET. PO SCH ×3 (07:36→19:20)
[2019-01-05] MEDS: GABAPENTIN 100 MG CAPSULE. PO SCH ×3 (07:36→19:21)
[2019-01-05] MEDS: LACTOBACILLUS RHAMNOSUS GG 1 CAPSULE. PO SCH ×2 (07:36→19:21)
[2019-01-05] MEDS: DIVALPROEX 125 MG CAP.SPRINK PO SCH ×2 (07:36→17:00)
[2019-01-05] MEDS: ACETAMINOPHEN 325 MG TABLET PO PRN (13:31)
[2019-01-05 15:44] VITALS: BP 137/85
[2019-01-05] MEDS: MIRTAZAPINE 7.5 MG TABLET. PO SCH (19:20)
[2019-01-05] MEDS: traZODone 100 MG TABLET. PO SCH (19:21)
[2019-01-05] MEDS: ATORVASTATIN CALCIUM 10 MG TABLET. PO SCH (19:21)
[2019-01-05] MEDS: ACETAMINOPHEN 325 MG TABLET PO SCH (19:23)
[2019-01-05] MEDS: BACITRACIN ZINC TOPICAL OINT PACKET. TP SCH (20:34)
--- NOTE | 2019-01-05 20:36 | PN ---
DATE: 01/03/2019 PSYCHIATRIC PROGRESS NOTE This late entry 01/03/2019 covers elements not covered in my initial note. SUBJECTIVE: I met with the patient in the evening. The patient slept 5 hours previous night. She was agitated in the morning, restless, redirectable. At night, she was also restless, received Ativan at 10:00 p.m. REVIEW OF SYSTEMS: Ambulation impaired with walker. No CV, , pulmonary, eye, ENT system symptoms on review. Reliability poor. MENTAL STATUS EXAM: Oriented to herself. Insight, judgment, recent and remote memory, attention, concentration, fund of knowledge poor, consistent with her diagnosis mentioned in my initial note. PLAN: No change from initial note. MAN Baldemar MCCAIN MD DR: ERIN/rajesh JOB#: [id number] / [id number]
--- NOTE | 2019-01-05 20:38 | PN ---
DATE: 01/04/2019 PSYCHIATRIC PROGRESS NOTE This late entry 01/04/2019 covers elements not covered in my initial note. SUBJECTIVE: I met with the patient in the evening. The patient was also staffed at a treatment team meeting earlier in the day. She slept 6-1/4 hours previous night, average 5 hours at night. Appetite 70%. She is doing much better than over the weekend, is not aggressive, certainly remains confused, ambulating with physical therapy staff, compliant with medications. REVIEW OF SYSTEMS: No CV, , pulmonary, eye, ENT system symptoms on review. Ambulation impaired with walker. MENTAL STATUS EXAM: Oriented to herself. Insight, judgment, recent and remote memory, attention, concentration, fund of knowledge poor, consistent with her diagnosis mentioned in my initial note. PLAN: No change from initial note. MAN Baldemar MCCAIN MD DR: ERIN/rajesh JOB#: [id number] / [id number]
--- NOTE | 2019-01-05 21:43 | PDOC ---
Exam Note: Yoel Note: Please also refer to the separate dictated note~for this date of service dictated separately.~Patient seen individually. Discussed the patient with Nursing staff reviewed the chart.~Reviewed interim history and current functioning. Reviewed vital signs,~Labs/ Radiology~and current medications noted below. Continue current treatment with the changes noted in the dictated addendum note Assessment: Vital Signs: Vital Signs Date Time Temp Pulse Resp B/P (MAP) Pulse Ox O2 Delivery O2 Flow Rate FiO2 01/05/19 15:44 97.8 83 20 137/85 (102) 95 Room Air I&O Intake and Output 01/05/19 06:59 Intake Total 420 ml Balance 420 ml Intake Oral 420 ml # Voids 1 Current Medications: Meds: Current Medications Acetaminophen (Tylenol) 650 mg PRN Q6HRS PRN PO PAIN / TEMP Last administered on 01/05/19at 13:31; Start 12/27/18 at 14:45; Stop 01/05/19 at 14:51; Status DC Multi-Ingredient Ointment (Analgesic [place]) 1 halle PRN QID PRN TP MUSCLE PAIN; Start 12/27/18 at 14:45 Al Hydroxide/Mg Hydroxide (Mylanta Plus Xs) 15 ml PRN AFTMEALHC PRN PO DYSPEPSIA; Start 12/27/18 at 14:45; Status Cancel Magnesium Hydroxide (Milk Of Magnesia) 2,400 mg PRN QHS PRN PO CONSTIPATION; Start 12/27/18 at 14:45; Status Cancel Acetaminophen (Tylenol) 650 mg PRN Q6HRS PRN PO PAIN; Start 12/27/18 at 15:00; Status UNV Lorazepam (Ativan) 0.5 mg PRN Q4HRS PRN PO AGITATION Last administered on at 21:50; Start 12/27/18 at 15:00 Al Hydroxide/Mg Hydroxide (Mylanta Plus Xs) 30 ml PRN Q4HRS PRN PO DYSPEPSIA; Start 12/27/18 at 15:00 Acetaminophen/ Codeine Phosphate (Tylenol #3) 1 tab PRN Q6HRS PRN PO PAIN Last administered on 12/31/18at 23:55; Start 12/27/18 at 15:15 Atorvastatin Calcium (Lipitor) 10 mg QHS PO Last administered on 3/1/19at 19:21 ; Start 12/27/18 at 21:00 Gabapentin (Neurontin) 100 mg TID PO Last administered on 01/05/19 19:21; Start 12/27/18 at 21:00 Magnesium Hydroxide (Milk Of Magnesia) 2,400 mg PRN Q6HRS PRN PO CONSTIPATION; Start 12/27/18 at 15:15 Memantine (Namenda) 10 mg BID PO Last administered on 12/31/18 19:53; Start at 21:00; Stop 12/31/18 at 21:12; Status DC Polyethylene Glycol (miraLAX) 17 gm PRN DAILY PRN PO CONSTIPATION; Start at 15:15 Quetiapine Fumarate (SEROquel) 150 mg TID PO Last administered on 01/05/19 19: 20; Start 12/27/18 at 21:00 Trazodone HCl (Desyrel) 50 mg BID PO Last administered on 12/28/18 08:27; Start 12/27/18 at 21:00; Stop 12/28/18 at 17:59; Status DC Cephalexin HCl (Keflex) 500 mg TID PO Last administered on 12/29/18 15:33; Start 12/27/18 at 21:00; Stop 12/29/18 at 17:51; Status DC Sertraline HCl (Zoloft) 25 mg DAILY PO Last administered on 12/31/18 07:30; Start 12/29/18 at 09:00; Stop 12/31/18 at 21:12; Status DC Trazodone HCl (Desyrel) 100 mg QHS PO Last administered on 01/05/19 19:21; Start 12/28/18 at 21:00 Trazodone HCl (Desyrel) 100 mg PRN QHS PRN PO INSOMNIA Last administered on 21:56; Start 12/28/18 at 18:00 Mirtazapine (Remeron) 7.5 mg QHS PO Last administered on 12/31/18 19:53; Start 12/29/18 at 21:00; Stop 12/31/18 at 21:12; Status DC Olanzapine (ZyPREXA ZYDIS) 2.5 mg PRN Q2HR PRN PO PSYCHOSIS Last administered on 01/03/19 18:14; Start 12/30/18 at 11:15 Divalproex Sodium (Depakote Sprinkles) 125 mg BID@0900,1700 PO Last administered on 01/05/19at 17:00; Start 12/31/18 at 09:00 Mirtazapine (Remeron) 15 mg QHS PO Last administered on 01/05/19 19:20; Start 12/31/18 at 21:30 Sertraline HCl (Zoloft) 50 mg DAILY PO Last administered on 01/03/19at 07:52; Start 01/01/19 at 09:00; Stop 01/03/19 at 23:50; Status DC Doxycycline Hyclate (Vibra-Tab) 100 mg BID PO Last administered on 01/05/19 19: 21; Start 01/01/19 at 21:00; Stop 01/11/19 at 20:00 Bacitracin (Bacitracin Topical Pkt) 1 pkt HS TP Last administered on 01/04/19at 21:00; Start 01/01/19 at 21:00 Sertraline HCl (Zoloft) 75 mg DAILY PO Last administered on 01/05/19at 07:36; Start 01/04/19 at 09:00; Stop 01/05/19 at 16:31; Status DC Lactobacillus Rhamnosus (Culturelle) 1 cap BID PO Last administered on 19:21; Start 01/03/19 at 21:00 Acetaminophen (Tylenol) 650 mg TID PO Last administered on 01/05/19 19:23; Start 01/05/19 at 21:00 Duloxetine HCl (Cymbalta) 30 mg DAILY PO ; Start 01/06/19 at 09:00 Active Scripts Active Reported Cephalexin 500 Mg Capsule 500 Mg PO TID Gabapentin 600 Mg Tablet 100 Mg PO TID Seroquel (Quetiapine Fumarate) 100 Mg Tablet 150 Mg PO TID Atorvastatin Calcium 10 Mg Tablet 10 Mg PO QHS Namenda (Memantine Hcl) 10 Mg Tablet 10 Mg PO BID Trazodone Hcl 50 Mg Tablet 50 Mg PO BID Miralax (Polyethylene Glycol 3350) 17 Gm Powd.pack 17 Gm PO PRN DAILY PRN Tylenol With Codeine #3 Tablet (Acetaminophen With Codeine) 1 Each Tablet 1 Each PO PRN Q6HRS PRN Milk Of Magnesia (Magnesium Hydroxide) 2,400 Mg/10 Ml Oral.susp 30 Ml PO PRN Q6HRS PRN Tylenol (Acetaminophen) 325 Mg Tablet 650 Mg PO PRN Q6HRS PRN Ativan (Lorazepam) 1 Mg Tablet 0.5 Mg PO PRN Q4HRS PRN Mag-Al Plus Xs Suspension (Mag Hydrox/Al Hydrox/Simeth) 30 Ml Oral.susp 30 Ml PO PRN Q4HRS PRN I have reviewed the current psychotropics carefully including drug interactions. Risk benefit ratio favors no change other than as noted in my dictated progress note. Diagnosis: Problems: (1) Dementia (2) Behavior problem (3) Medical clearance for psychiatric admission (4) Anxiety disorder (5) Dementia in Alzheimer's disease with delusions (6) Dementia in Alzheimer's disease with depression (7) Dementia, vascular, with delusions (8) Dementia, vascular, with depression (9) Impulse control disorder NAJMA MCCAIN MD Jan 05, 2019 21:43
[2019-01-06] MEDS: traZODone 100 MG TABLET. PO SCH (01:45)
[2019-01-06] MEDS: LORazepam 0.5 MG TABLET PO PRN (03:52)
[2019-01-06 05:30] VITALS: BP 112/68
[2019-01-06] MEDS: DOXYCYCLINE HYCLATE 100 MG TABLET PO SCH ×2 (07:54→19:31)
[2019-01-06] MEDS: LACTOBACILLUS RHAMNOSUS GG 1 CAPSULE. PO SCH ×2 (07:54→19:31)
[2019-01-06] MEDS: ACETAMINOPHEN 325 MG TABLET PO SCH ×3 (07:54→19:31)
[2019-01-06] MEDS: DIVALPROEX 125 MG CAP.SPRINK PO SCH ×2 (07:54→18:27)
[2019-01-06] MEDS: QUEtiapine 50 MG TABLET. PO SCH ×3 (07:55→19:36)
[2019-01-06] MEDS: DULoxetine HCL 30 MG CAPSULE.DR PO SCH (07:56)
[2019-01-06] MEDS: GABAPENTIN 100 MG CAPSULE. PO SCH ×3 (07:56→19:32)
[2019-01-06 15:27] VITALS: BP 127/69
[2019-01-06] MEDS: ATORVASTATIN CALCIUM 10 MG TABLET. PO SCH (19:32)
[2019-01-06] MEDS: MIRTAZAPINE 7.5 MG TABLET. PO SCH (19:36)
[2019-01-06] MEDS: BACITRACIN ZINC TOPICAL OINT PACKET. TP SCH (19:38)
[2019-01-06] MEDS ORDERED: traZODone 100 MG TABLET. PO ONE (21:00)
--- NOTE | 2019-01-06 21:46 | PDOC ---
Exam Note: Yoel Note: Please also refer to the separate dictated note~for this date of service dictated separately.~Patient seen individually. Discussed the patient with Nursing staff reviewed the chart.~Reviewed interim history and current functioning. Reviewed vital signs,~Labs/ Radiology~and current medications noted below. Continue current treatment with the changes noted in the dictated addendum note Assessment: Vital Signs: Vital Signs Date Time Temp Pulse Resp B/P (MAP) Pulse Ox O2 Delivery O2 Flow Rate FiO2 01/06/19 15:27 97.1 70 17 127/69 (88) 95 01/05/19 15:44 Room Air I&O Intake and Output 01/06/19 06:59 Intake Total 960 ml Balance 960 ml Intake Oral 960 ml Current Medications: Meds: Current Medications Acetaminophen (Tylenol) 650 mg PRN Q6HRS PRN PO PAIN / TEMP Last administered on 01/05/19at 13:31; Start 12/27/18 at 14:45; Stop 01/05/19 at 14:51; Status DC Multi-Ingredient Ointment (Analgesic [place]) 1 halle PRN QID PRN TP MUSCLE PAIN; Start 12/27/18 at 14:45 Al Hydroxide/Mg Hydroxide (Mylanta Plus Xs) 15 ml PRN AFTMEALHC PRN PO DYSPEPSIA; Start 12/27/18 at 14:45; Status Cancel Magnesium Hydroxide (Milk Of Magnesia) 2,400 mg PRN QHS PRN PO CONSTIPATION; Start 12/27/18 at 14:45; Status Cancel Acetaminophen (Tylenol) 650 mg PRN Q6HRS PRN PO PAIN; Start 12/27/18 at 15:00; Status UNV Lorazepam (Ativan) 0.5 mg PRN Q4HRS PRN PO AGITATION Last administered on at 03:52; Start 12/27/18 at 15:00 Al Hydroxide/Mg Hydroxide (Mylanta Plus Xs) 30 ml PRN Q4HRS PRN PO DYSPEPSIA; Start 12/27/18 at 15:00 Acetaminophen/ Codeine Phosphate (Tylenol #3) 1 tab PRN Q6HRS PRN PO PAIN Last administered on 12/31/18at 23:55; Start 12/27/18 at 15:15 Atorvastatin Calcium (Lipitor) 10 mg QHS PO Last administered on 01/06/19 19:32 ; Start 12/27/18 at 21:00 Gabapentin (Neurontin) 100 mg TID PO Last administered on 01/06/19 19:32; Start 12/27/18 at 21:00 Magnesium Hydroxide (Milk Of Magnesia) 2,400 mg PRN Q6HRS PRN PO CONSTIPATION; Start 12/27/18 at 15:15 Memantine (Namenda) 10 mg BID PO Last administered on 12/31/18 19:53; Start at 21:00; Stop 12/31/18 at 21:12; Status DC Polyethylene Glycol (miraLAX) 17 gm PRN DAILY PRN PO CONSTIPATION; Start at 15:15 Quetiapine Fumarate (SEROquel) 150 mg TID PO Last administered on 01/06/19 19: 36; Start 12/27/18 at 21:00 Trazodone HCl (Desyrel) 50 mg BID PO Last administered on 12/28/18 08:27; Start 12/27/18 at 21:00; Stop 12/28/18 at 17:59; Status DC Cephalexin HCl (Keflex) 500 mg TID PO Last administered on 12/29/18 15:33; Start 12/27/18 at 21:00; Stop 12/29/18 at 17:51; Status DC Sertraline HCl (Zoloft) 25 mg DAILY PO Last administered on 12/31/18 07:30; Start 12/29/18 at 09:00; Stop 12/31/18 at 21:12; Status DC Trazodone HCl (Desyrel) 100 mg QHS PO Last administered on 01/06/19 01:45; Start 12/28/18 at 21:00 Trazodone HCl (Desyrel) 100 mg PRN QHS PRN PO INSOMNIA Last administered on 21:56; Start 12/28/18 at 18:00 Mirtazapine (Remeron) 7.5 mg QHS PO Last administered on 12/31/18 19:53; Start 12/29/18 at 21:00; Stop 12/31/18 at 21:12; Status DC Olanzapine (ZyPREXA ZYDIS) 2.5 mg PRN Q2HR PRN PO PSYCHOSIS Last administered on 01/06/19 01:45; Start 12/30/18 at 11:15 Divalproex Sodium (Depakote Sprinkles) 125 mg BID@0900,1700 PO Last administered on 01/06/19 18:27; Start 12/31/18 at 09:00 Mirtazapine (Remeron) 15 mg QHS PO Last administered on 01/06/19 19:36; Start 12/31/18 at 21:30 Sertraline HCl (Zoloft) 50 mg DAILY PO Last administered on 01/03/19 07:52; Start 01/01/19 at 09:00; Stop 01/03/19 at 23:50; Status DC Doxycycline Hyclate (Vibra-Tab) 100 mg BID PO Last administered on 01/06/19 19: 31; Start 01/01/19 at 21:00; Stop 01/11/19 at 20:00 Bacitracin (Bacitracin Topical Pkt) 1 pkt HS TP Last administered on 01/06/19 19:38; Start 01/01/19 at 21:00 Sertraline HCl (Zoloft) 75 mg DAILY PO Last administered on 01/05/19 07:36; Start 01/04/19 at 09:00; Stop 01/05/19 at 16:31; Status DC Lactobacillus Rhamnosus (Culturelle) 1 cap BID PO Last administered on 19:31; Start 01/03/19 at 21:00 Acetaminophen (Tylenol) 650 mg TID PO Last administered on 01/06/19 19:31; Start 01/05/19 at 21:00 Duloxetine HCl (Cymbalta) 30 mg DAILY PO Last administered on 01/06/19 07:56; Start 01/06/19 at 09:00 Trazodone HCl (Desyrel) 100 mg 1X ONCE PO Last administered on 01/06/19 19:39 ; Start 01/06/19 at 21:00; Stop 01/06/19 at 21:01; Status DC Active Scripts Active Reported Cephalexin 500 Mg Capsule 500 Mg PO TID Gabapentin 600 Mg Tablet 100 Mg PO TID Seroquel (Quetiapine Fumarate) 100 Mg Tablet 150 Mg PO TID Atorvastatin Calcium 10 Mg Tablet 10 Mg PO QHS Namenda (Memantine Hcl) 10 Mg Tablet 10 Mg PO BID Trazodone Hcl 50 Mg Tablet 50 Mg PO BID Miralax (Polyethylene Glycol 3350) 17 Gm Powd.pack 17 Gm PO PRN DAILY PRN Tylenol With Codeine #3 Tablet (Acetaminophen With Codeine) 1 Each Tablet 1 Each PO PRN Q6HRS PRN Milk Of Magnesia (Magnesium Hydroxide) 2,400 Mg/10 Ml Oral.susp 30 Ml PO PRN Q6HRS PRN Tylenol (Acetaminophen) 325 Mg Tablet 650 Mg PO PRN Q6HRS PRN Ativan (Lorazepam) 1 Mg Tablet 0.5 Mg PO PRN Q4HRS PRN Mag-Al Plus Xs Suspension (Mag Hydrox/Al Hydrox/Simeth) 30 Ml Oral.susp 30 Ml PO PRN Q4HRS PRN I have reviewed the current psychotropics carefully including drug interactions. Risk benefit ratio favors no change other than as noted in my dictated progress note. Diagnosis: Problems: (1) Dementia (2) Behavior problem (3) Medical clearance for psychiatric admission (4) Anxiety disorder (5) Dementia in Alzheimer's disease with delusions (6) Dementia in Alzheimer's disease with depression (7) Dementia, vascular, with delusions (8) Dementia, vascular, with depression (9) Impulse control disorder NAJMA MCCAIN MD Jan 06, 2019 21:46
[2019-01-07 05:55] VITALS: BP 113/65
[2019-01-07] MEDS: DOXYCYCLINE HYCLATE 100 MG TABLET PO SCH ×2 (07:25→19:48)
[2019-01-07] MEDS: ACETAMINOPHEN 325 MG TABLET PO SCH ×3 (07:25→19:48)
[2019-01-07] MEDS: DULoxetine HCL 30 MG CAPSULE.DR PO SCH (07:26)
[2019-01-07] MEDS: DIVALPROEX 125 MG CAP.SPRINK PO SCH ×2 (07:26→17:41)
[2019-01-07] MEDS: LACTOBACILLUS RHAMNOSUS GG 1 CAPSULE. PO SCH ×2 (07:26→19:48)
[2019-01-07] MEDS: QUEtiapine 50 MG TABLET. PO SCH ×3 (07:26→19:48)
[2019-01-07] MEDS: GABAPENTIN 100 MG CAPSULE. PO SCH ×3 (07:34→19:48)
[2019-01-07 15:57] VITALS: BP 122/81
[2019-01-07] MEDS: ATORVASTATIN CALCIUM 10 MG TABLET. PO SCH (19:48)
[2019-01-07] MEDS: BACITRACIN ZINC TOPICAL OINT PACKET. TP SCH (19:49)
[2019-01-07] MEDS: traZODone 100 MG TABLET. PO SCH (19:49)
[2019-01-07] MEDS: AMITRIPTYLINE HCL 10 MG TABLET PO SCH (19:55)
--- NOTE | 2019-01-07 21:13 | PN ---
DATE: 01/05/2019 PSYCHIATRIC PROGRESS NOTE This late entry 01/05/2019 covers elements not covered in my initial note. SUBJECTIVE: I met with the patient in the evening. The patient slept 7-1/2 hours previous night. The patient remains confused. The day before, appetite was poor; on 01/05/2019, she did better. Physical therapy unable to work with her because she is unable to follow directions. She does have knee pain, receives Tylenol on schedule. REVIEW OF SYSTEMS: No CV, , pulmonary, eye, ENT system symptoms on review other than above. MENTAL STATUS EXAM: Oriented to herself. Insight, judgment, recent and remote memory, attention, concentration, fund of knowledge poor, consistent with her diagnosis mentioned in my initial note. PLAN: No change from initial note. We will go ahead and start Cymbalta 30 mg a day for her mood and anxiety symptoms, should help some of her pain as well. Rest unchanged. NAJMA MCCAIN MD DR: ERIN/rajesh JOB#: [id number] / [id number]
[2019-01-07] MEDS: ACETAMINOPHEN/CODEINE 300/30MG TABLET PO PRN (21:26)
[2019-01-07] MEDS: traZODone 100 MG TABLET. PO PRN (21:26)
--- NOTE | 2019-01-07 22:31 | PDOC ---
Exam Note: Yoel Note: Please also refer to the separate dictated note~for this date of service dictated separately.~Patient seen individually. Discussed the patient with Nursing staff reviewed the chart.~Reviewed interim history and current functioning. Reviewed vital signs,~Labs/ Radiology~and current medications noted below. Continue current treatment with the changes noted in the dictated addendum note Assessment: Vital Signs: Vital Signs Date Time Temp Pulse Resp B/P (MAP) Pulse Ox O2 Delivery O2 Flow Rate FiO2 01/07/19 21:26 94 01/07/19 15:57 97.0 75 18 122/81 (95) 01/07/19 05:55 Room Air I&O Intake and Output 01/07/19 07:00 Intake Total 1080 ml Balance 1080 ml Intake Oral 1080 ml Current Medications: Meds: Current Medications Acetaminophen (Tylenol) 650 mg PRN Q6HRS PRN PO PAIN / TEMP Last administered on 01/05/19at 13:31; Start 12/27/18 at 14:45; Stop 01/05/19 at 14:51; Status DC Multi-Ingredient Ointment (Analgesic [place]) 1 halle PRN QID PRN TP MUSCLE PAIN; Start 12/27/18 at 14:45 Al Hydroxide/Mg Hydroxide (Mylanta Plus Xs) 15 ml PRN AFTMEALHC PRN PO DYSPEPSIA; Start 12/27/18 at 14:45; Status Cancel Magnesium Hydroxide (Milk Of Magnesia) 2,400 mg PRN QHS PRN PO CONSTIPATION; Start 12/27/18 at 14:45; Status Cancel Acetaminophen (Tylenol) 650 mg PRN Q6HRS PRN PO PAIN; Start 12/27/18 at 15:00; Status UNV Lorazepam (Ativan) 0.5 mg PRN Q4HRS PRN PO AGITATION Last administered on at 03:52; Start 12/27/18 at 15:00 Al Hydroxide/Mg Hydroxide (Mylanta Plus Xs) 30 ml PRN Q4HRS PRN PO DYSPEPSIA; Start 12/27/18 at 15:00 Acetaminophen/ Codeine Phosphate (Tylenol #3) 1 tab PRN Q6HRS PRN PO PAIN Last administered on 01/07/19at 21:26; Start 12/27/18 at 15:15 Atorvastatin Calcium (Lipitor) 10 mg QHS PO Last administered on 01/07/19 19:48 ; Start 12/27/18 at 21:00 Gabapentin (Neurontin) 100 mg TID PO Last administered on 01/07/19 19:48; Start 12/27/18 at 21:00 Magnesium Hydroxide (Milk Of Magnesia) 2,400 mg PRN Q6HRS PRN PO CONSTIPATION; Start 12/27/18 at 15:15 Memantine (Namenda) 10 mg BID PO Last administered on 12/31/18 19:53; Start at 21:00; Stop 12/31/18 at 21:12; Status DC Polyethylene Glycol (miraLAX) 17 gm PRN DAILY PRN PO CONSTIPATION; Start at 15:15 Quetiapine Fumarate (SEROquel) 150 mg TID PO Last administered on 01/07/19 19: 48; Start 12/27/18 at 21:00 Trazodone HCl (Desyrel) 50 mg BID PO Last administered on 12/28/18 08:27; Start 12/27/18 at 21:00; Stop 12/28/18 at 17:59; Status DC Cephalexin HCl (Keflex) 500 mg TID PO Last administered on 12/29/18 15:33; Start 12/27/18 at 21:00; Stop 12/29/18 at 17:51; Status DC Sertraline HCl (Zoloft) 25 mg DAILY PO Last administered on 12/31/18 07:30; Start 12/29/18 at 09:00; Stop 12/31/18 at 21:12; Status DC Trazodone HCl (Desyrel) 100 mg QHS PO Last administered on 01/07/19 19:49; Start 12/28/18 at 21:00 Trazodone HCl (Desyrel) 100 mg PRN QHS PRN PO INSOMNIA Last administered on 01/07 21:26; Start 12/28/18 at 18:00 Mirtazapine (Remeron) 7.5 mg QHS PO Last administered on 12/31/18 19:53; Start 12/29/18 at 21:00; Stop 12/31/18 at 21:12; Status DC Olanzapine (ZyPREXA ZYDIS) 2.5 mg PRN Q2HR PRN PO PSYCHOSIS Last administered on 01/06/19 01:45; Start 12/30/18 at 11:15 Divalproex Sodium (Depakote Sprinkles) 125 mg BID@0900,1700 PO Last administered on 01/07/19 17:41; Start 12/31/18 at 09:00 Mirtazapine (Remeron) 15 mg QHS PO Last administered on 01/06/19 19:36; Start 12/31/18 at 21:30; Stop 01/06/19 at 23:12; Status DC Sertraline HCl (Zoloft) 50 mg DAILY PO Last administered on 01/03/19 07:52; Start 01/01/19 at 09:00; Stop 01/03/19 at 23:50; Status DC Doxycycline Hyclate (Vibra-Tab) 100 mg BID PO Last administered on 01/07/19 19: 48; Start 01/01/19 at 21:00; Stop 01/11/19 at 20:00 Bacitracin (Bacitracin Topical Pkt) 1 pkt HS TP Last administered on 01/07/19 19:49; Start 01/01/19 at 21:00 Sertraline HCl (Zoloft) 75 mg DAILY PO Last administered on 01/05/19 07:36; Start 01/04/19 at 09:00; Stop 01/05/19 at 16:31; Status DC Lactobacillus Rhamnosus (Culturelle) 1 cap BID PO Last administered on 19:48; Start 01/03/19 at 21:00 Acetaminophen (Tylenol) 650 mg TID PO Last administered on 01/07/19 19:48; Start 01/05/19 at 21:00 Duloxetine HCl (Cymbalta) 30 mg DAILY PO Last administered on 01/07/19 07:26; Start 01/06/19 at 09:00 Trazodone HCl (Desyrel) 100 mg 1X ONCE PO Last administered on 01/06/19 19:39 ; Start 01/06/19 at 21:00; Stop 01/06/19 at 21:01; Status DC Amitriptyline HCl (Elavil) 10 mg QHS PO Last administered on 3/3/19at 19:55; Start 01/07/19 at 21:00 Active Scripts Active Reported Cephalexin 500 Mg Capsule 500 Mg PO TID Gabapentin 600 Mg Tablet 100 Mg PO TID Seroquel (Quetiapine Fumarate) 100 Mg Tablet 150 Mg PO TID Atorvastatin Calcium 10 Mg Tablet 10 Mg PO QHS Namenda (Memantine Hcl) 10 Mg Tablet 10 Mg PO BID Trazodone Hcl 50 Mg Tablet 50 Mg PO BID Miralax (Polyethylene Glycol 3350) 17 Gm Powd.pack 17 Gm PO PRN DAILY PRN Tylenol With Codeine #3 Tablet (Acetaminophen With Codeine) 1 Each Tablet 1 Each PO PRN Q6HRS PRN Milk Of Magnesia (Magnesium Hydroxide) 2,400 Mg/10 Ml Oral.susp 30 Ml PO PRN Q6HRS PRN Tylenol (Acetaminophen) 325 Mg Tablet 650 Mg PO PRN Q6HRS PRN Ativan (Lorazepam) 1 Mg Tablet 0.5 Mg PO PRN Q4HRS PRN Mag-Al Plus Xs Suspension (Mag Hydrox/Al Hydrox/Simeth) 30 Ml Oral.susp 30 Ml PO PRN Q4HRS PRN I have reviewed the current psychotropics carefully including drug interactions. Risk benefit ratio favors no change other than as noted in my dictated progress note. Diagnosis: Problems: (1) Dementia (2) Behavior problem (3) Medical clearance for psychiatric admission (4) Anxiety disorder (5) Dementia in Alzheimer's disease with delusions (6) Dementia in Alzheimer's disease with depression (7) Dementia, vascular, with delusions (8) Dementia, vascular, with depression (9) Impulse control disorder NAJMA MCCAIN MD Jan 07, 2019 22:31
[2019-01-08] MEDS: ACETAMINOPHEN/CODEINE 300/30MG TABLET PO PRN (01:27)
[2019-01-08] MEDS: traZODone 100 MG TABLET. PO PRN (01:27)
[2019-01-08 05:39] VITALS: BP 100/67
[2019-01-08] MEDS: ACETAMINOPHEN 325 MG TABLET PO SCH ×3 (07:52→20:11)
[2019-01-08] MEDS: GABAPENTIN 100 MG CAPSULE. PO SCH ×3 (07:52→20:14)
[2019-01-08] MEDS: DOXYCYCLINE HYCLATE 100 MG TABLET PO SCH ×2 (07:52→20:10)
[2019-01-08] MEDS: LACTOBACILLUS RHAMNOSUS GG 1 CAPSULE. PO SCH ×2 (07:52→20:11)
[2019-01-08] MEDS: DULoxetine HCL 30 MG CAPSULE.DR PO SCH (07:52)
[2019-01-08] MEDS: DIVALPROEX 125 MG CAP.SPRINK PO SCH ×2 (07:52→16:11)
[2019-01-08] MEDS: QUEtiapine 50 MG TABLET. PO SCH ×3 (07:52→20:10)
[2019-01-08 16:01] VITALS: BP 90/55
--- NOTE | 2019-01-08 20:00 | PN ---
DATE: 01/06/2019 PSYCHIATRIC PROGRESS NOTE This late entry, 01/06/2018, covers elements not covered in my initial note. SUBJECTIVE: I met with the patient in the evening. The patient slept 3-1/2 hours previous night. She took her bedtime medication, slept poorly. Remains confused. REVIEW OF SYSTEMS: No CV, , pulmonary, eye, ENT system symptoms on review. Reliability poor. MENTAL STATUS EXAM: Oriented to herself. Insight, judgment, recent and remote memory, attention, concentration, fund of knowledge poor, consistent with her diagnosis mentioned in my initial note. PLAN: Change Remeron 15 mg at bedtime to amitriptyline 10 mg at bedtime for her ongoing insomnia and anxiety. Rest unchanged per initial note. MAN Baldemar MCCAIN MD DR: ERIN/rajesh JOB#: [id number] / [id number]
--- NOTE | 2019-01-08 20:03 | PN ---
DATE: 01/07/2019 PSYCHIATRIC PROGRESS NOTE This late entry 01/07/2019 covers elements not covered in my initial note. SUBJECTIVE: I met with the patient in the evening. The patient slept 4-3/4 hours previous night, a little better with the amitriptyline and we will monitor this. She has not been aggressive. REVIEW OF SYSTEMS: No CV, , pulmonary, eye, ENT system symptoms on review. Reliability poor. MENTAL STATUS EXAM: Oriented to herself. Insight, judgment, recent and remote memory, attention, concentration, fund of knowledge poor, consistent with her diagnosis mentioned in my initial note. PLAN: No change from my initial note. MAN Baldemar MCCAIN MD DR: ERIN/rajesh JOB#: [id number] / [id number]
[2019-01-08] MEDS: AMITRIPTYLINE HCL 10 MG TABLET PO SCH (20:10)
[2019-01-08] MEDS: ATORVASTATIN CALCIUM 10 MG TABLET. PO SCH (20:10)
[2019-01-08] MEDS: traZODone 100 MG TABLET. PO SCH (20:10)
[2019-01-08] MEDS: BACITRACIN ZINC TOPICAL OINT PACKET. TP SCH (21:00)
--- NOTE | 2019-01-08 22:26 | PDOC ---
Exam Note: Yoel Note: Please also refer to the separate dictated note~for this date of service dictated separately.~Patient seen individually. Discussed the patient with Nursing staff reviewed the chart.~Reviewed interim history and current functioning. Reviewed vital signs,~Labs/ Radiology~and current medications noted below. Continue current treatment with the changes noted in the dictated addendum note Assessment: Vital Signs: Vital Signs Date Time Temp Pulse Resp B/P (MAP) Pulse Ox O2 Delivery O2 Flow Rate FiO2 01/08/19 16:01 97.0 97 16 90/55 (67) 94 01/08/19 03:30 Room Air I&O Intake and Output 01/08/19 07:00 Intake Total 780 ml Balance 780 ml Intake Oral 780 ml # Bowel Movements 3 Current Medications: Meds: Current Medications Acetaminophen (Tylenol) 650 mg PRN Q6HRS PRN PO PAIN / TEMP Last administered on 01/05/19at 13:31; Start 12/27/18 at 14:45; Stop 01/05/19 at 14:51; Status DC Multi-Ingredient Ointment (Analgesic [place]) 1 halle PRN QID PRN TP MUSCLE PAIN; Start 12/27/18 at 14:45 Al Hydroxide/Mg Hydroxide (Mylanta Plus Xs) 15 ml PRN AFTMEALHC PRN PO DYSPEPSIA; Start 12/27/18 at 14:45; Status Cancel Magnesium Hydroxide (Milk Of Magnesia) 2,400 mg PRN QHS PRN PO CONSTIPATION; Start 12/27/18 at 14:45; Status Cancel Acetaminophen (Tylenol) 650 mg PRN Q6HRS PRN PO PAIN; Start 12/27/18 at 15:00; Status UNV Lorazepam (Ativan) 0.5 mg PRN Q4HRS PRN PO AGITATION Last administered on at 03:52; Start 12/27/18 at 15:00 Al Hydroxide/Mg Hydroxide (Mylanta Plus Xs) 30 ml PRN Q4HRS PRN PO DYSPEPSIA; Start 12/27/18 at 15:00 Acetaminophen/ Codeine Phosphate (Tylenol #3) 1 tab PRN Q6HRS PRN PO PAIN Last administered on 01/08/19at 01:27; Start 12/27/18 at 15:15 Atorvastatin Calcium (Lipitor) 10 mg QHS PO Last administered on 01/08/19 20:10 ; Start 12/27/18 at 21:00 Gabapentin (Neurontin) 100 mg TID PO Last administered on 01/08/19 20:14; Start 12/27/18 at 21:00 Magnesium Hydroxide (Milk Of Magnesia) 2,400 mg PRN Q6HRS PRN PO CONSTIPATION; Start 12/27/18 at 15:15 Memantine (Namenda) 10 mg BID PO Last administered on 12/31/18 19:53; Start at 21:00; Stop 12/31/18 at 21:12; Status DC Polyethylene Glycol (miraLAX) 17 gm PRN DAILY PRN PO CONSTIPATION; Start at 15:15 Quetiapine Fumarate (SEROquel) 150 mg TID PO Last administered on 01/08/19 20: 10; Start 12/27/18 at 21:00 Trazodone HCl (Desyrel) 50 mg BID PO Last administered on 12/28/18 08:27; Start 12/27/18 at 21:00; Stop 12/28/18 at 17:59; Status DC Cephalexin HCl (Keflex) 500 mg TID PO Last administered on 12/29/18 15:33; Start 12/27/18 at 21:00; Stop 12/29/18 at 17:51; Status DC Sertraline HCl (Zoloft) 25 mg DAILY PO Last administered on 12/31/18 07:30; Start 12/29/18 at 09:00; Stop 12/31/18 at 21:12; Status DC Trazodone HCl (Desyrel) 100 mg QHS PO Last administered on 01/08/19 20:10; Start 12/28/18 at 21:00 Trazodone HCl (Desyrel) 100 mg PRN QHS PRN PO INSOMNIA Last administered on 01/08 01:27; Start 12/28/18 at 18:00 Mirtazapine (Remeron) 7.5 mg QHS PO Last administered on 12/31/18 19:53; Start 12/29/18 at 21:00; Stop 12/31/18 at 21:12; Status DC Olanzapine (ZyPREXA ZYDIS) 2.5 mg PRN Q2HR PRN PO PSYCHOSIS Last administered on 01/06/19 01:45; Start 12/30/18 at 11:15 Divalproex Sodium (Depakote Sprinkles) 125 mg BID@0900,1700 PO Last administered on 01/08/19 16:11; Start 12/31/18 at 09:00 Mirtazapine (Remeron) 15 mg QHS PO Last administered on 01/06/19 19:36; Start 12/31/18 at 21:30; Stop 01/06/19 at 23:12; Status DC Sertraline HCl (Zoloft) 50 mg DAILY PO Last administered on 01/03/19 07:52; Start 01/01/19 at 09:00; Stop 01/03/19 at 23:50; Status DC Doxycycline Hyclate (Vibra-Tab) 100 mg BID PO Last administered on 01/08/19 20: 10; Start 01/01/19 at 21:00; Stop 01/11/19 at 20:00 Bacitracin (Bacitracin Topical Pkt) 1 pkt HS TP Last administered on 01/07/19 19:49; Start 01/01/19 at 21:00 Sertraline HCl (Zoloft) 75 mg DAILY PO Last administered on 01/05/19 07:36; Start 01/04/19 at 09:00; Stop 01/05/19 at 16:31; Status DC Lactobacillus Rhamnosus (Culturelle) 1 cap BID PO Last administered on 20:11; Start 01/03/19 at 21:00 Acetaminophen (Tylenol) 650 mg TID PO Last administered on 01/08/19 20:11; Start 01/05/19 at 21:00 Duloxetine HCl (Cymbalta) 30 mg DAILY PO Last administered on 01/08/19 07:52; Start 01/06/19 at 09:00 Trazodone HCl (Desyrel) 100 mg 1X ONCE PO Last administered on 01/06/19 19:39 ; Start 01/06/19 at 21:00; Stop 01/06/19 at 21:01; Status DC Amitriptyline HCl (Elavil) 10 mg QHS PO Last administered on 01/08/19 20:10; Start 01/07/19 at 21:00 Active Scripts Active Reported Cephalexin 500 Mg Capsule 500 Mg PO TID Gabapentin 600 Mg Tablet 100 Mg PO TID Seroquel (Quetiapine Fumarate) 100 Mg Tablet 150 Mg PO TID Atorvastatin Calcium 10 Mg Tablet 10 Mg PO QHS Namenda (Memantine Hcl) 10 Mg Tablet 10 Mg PO BID Trazodone Hcl 50 Mg Tablet 50 Mg PO BID Miralax (Polyethylene Glycol 3350) 17 Gm Powd.pack 17 Gm PO PRN DAILY PRN Tylenol With Codeine #3 Tablet (Acetaminophen With Codeine) 1 Each Tablet 1 Each PO PRN Q6HRS PRN Milk Of Magnesia (Magnesium Hydroxide) 2,400 Mg/10 Ml Oral.susp 30 Ml PO PRN Q6HRS PRN Tylenol (Acetaminophen) 325 Mg Tablet 650 Mg PO PRN Q6HRS PRN Ativan (Lorazepam) 1 Mg Tablet 0.5 Mg PO PRN Q4HRS PRN Mag-Al Plus Xs Suspension (Mag Hydrox/Al Hydrox/Simeth) 30 Ml Oral.susp 30 Ml PO PRN Q4HRS PRN I have reviewed the current psychotropics carefully including drug interactions. Risk benefit ratio favors no change other than as noted in my dictated progress note. Diagnosis: Problems: (1) Dementia (2) Behavior problem (3) Medical clearance for psychiatric admission (4) Anxiety disorder (5) Dementia in Alzheimer's disease with delusions (6) Dementia in Alzheimer's disease with depression (7) Dementia, vascular, with delusions (8) Dementia, vascular, with depression (9) Impulse control disorder NAJMA MCCAIN MD Jan 08, 2019 22:26
[2019-01-09 05:43] VITALS: BP 126/74
[2019-01-09] MEDS: ACETAMINOPHEN 325 MG TABLET PO SCH ×3 (08:15→20:16)
[2019-01-09] MEDS: DOXYCYCLINE HYCLATE 100 MG TABLET PO SCH ×2 (08:15→20:11)
[2019-01-09] MEDS: DULoxetine HCL 30 MG CAPSULE.DR PO SCH (08:15)
[2019-01-09] MEDS: LACTOBACILLUS RHAMNOSUS GG 1 CAPSULE. PO SCH ×2 (08:15→20:11)
[2019-01-09] MEDS: DIVALPROEX 125 MG CAP.SPRINK PO SCH ×2 (08:15→16:27)
[2019-01-09] MEDS: QUEtiapine 50 MG TABLET. PO SCH ×3 (08:15→20:11)
[2019-01-09] MEDS: GABAPENTIN 100 MG CAPSULE. PO SCH ×3 (08:17→20:16)
[2019-01-09 09:37] LABS: BASO % 1 % (0-3); EOS # 0.5 x10^3/uL (0.0-0.7); EOS % 12 % (0-3); HEMATOCRIT 33.3 % (36.0-47.0); HEMOGLOBIN 10.8 g/dL (12.0-15.5); LYMPH % 23 % (24-48); MEAN CORPUSCULAR HEMOGLOBIN 27 pg (25-35); MEAN CORPUSCULAR HGB CONC 32 g/dL (31-37); MEAN CORPUSCULAR VOLUME 82 fL (79-100); MONO # 0.4 x10^3/uL (0.0-1.1); MONO % 8 % (0-9); NEUT # 2.5 x10^3uL (1.8-7.7); NEUT % 56 % (31-73); PLATELET COUNT 330 x10^3/uL (140-400); RED BLOOD COUNT 4.05 x10^6/uL (3.50-5.40); RED CELL DISTRIBUTION WIDTH 16.8 % (11.5-14.5); WHITE BLOOD COUNT 4.5 x10^3/uL (4.0-11.0)
[2019-01-09 10:01] LABS: ALBUMIN 2.4 g/dL (3.4-5.0); ALBUMIN/GLOBULIN RATIO 0.5 (1.0-1.7); CALCIUM 8.9 mg/dL (8.5-10.1); CREATININE 0.7 mg/dL (0.6-1.0); GFR 82.3; POTASSIUM 3.4 mmol/L (3.5-5.1); TOTAL BILIRUBIN 0.2 mg/dL (0.2-1.0); TOTAL PROTEIN 6.9 g/dL (6.4-8.2)
--- NOTE | 2019-01-09 15:07 | PN ---
DATE: 01/08/2019 PSYCHIATRIC PROGRESS NOTE This late entry 01/08/2019 covers elements not covered in my initial note. SUBJECTIVE: I met with the patient in the evening. The patient slept 5-3/4 hours previous night and then slept in later as well for a total of possible 7-1/2 hours. She remains confused. Attending activities, oblivious of her surroundings. REVIEW OF SYSTEMS: Ambulation impaired with walker. No CV, , pulmonary, eye, ENT system symptoms on review. Reliability poor. MENTAL STATUS EXAM: Oriented to herself. Insight, judgment, recent and remote memory, attention, concentration, fund of knowledge poor, consistent with her diagnosis mentioned in my initial note. PLAN: No change from my initial note. MAN Baldemar MCCAIN MD DR: ERIN/rajesh JOB#: [id number] / [id number]
[2019-01-09 16:06] VITALS: BP 124/78
[2019-01-09] MEDS: AMITRIPTYLINE HCL 10 MG TABLET PO SCH (20:11)
[2019-01-09] MEDS: ATORVASTATIN CALCIUM 10 MG TABLET. PO SCH (20:11)
[2019-01-09] MEDS: traZODone 100 MG TABLET. PO SCH (20:12)
[2019-01-09] MEDS: BACITRACIN ZINC TOPICAL OINT PACKET. TP SCH (20:26)
--- NOTE | 2019-01-09 22:00 | PDOC ---
Exam Note: Yoel Note: Please also refer to the separate dictated note~for this date of service dictated separately.~Patient seen individually. Discussed the patient with Nursing staff reviewed the chart.~Reviewed interim history and current functioning. Reviewed vital signs,~Labs/ Radiology~and current medications noted below. Continue current treatment with the changes noted in the dictated addendum note Assessment: Vital Signs: Vital Signs Date Time Temp Pulse Resp B/P (MAP) Pulse Ox O2 Delivery O2 Flow Rate FiO2 01/09/19 16:06 97.2 80 16 124/78 (93) 94 Room Air I&O Intake and Output 01/09/19 06:59 Intake Total 800 ml Balance 800 ml Intake Oral 800 ml Labs: Laboratory Tests Test 01/09/19 09:27 White Blood Count 4.5 x10^3/uL (4.0-11.0) Red Blood Count 4.05 x10^6/uL (3.50-5.40) Hemoglobin 10.8 g/dL (12.0-15.5) L Hematocrit 33.3 % (36.0-47.0) L Mean Corpuscular Volume 82 fL (79-100) Mean Corpuscular Hemoglobin 27 pg (25-35) Mean Corpuscular Hemoglobin Concent 32 g/dL (31-37) Red Cell Distribution Width 16.8 % (11.5-14.5) H Platelet Count 330 x10^3/uL (140-400) Neutrophils (%) (Auto) 56 % (31-73) Lymphocytes (%) (Auto) 23 % (24-48) L Monocytes (%) (Auto) 8 % (0-9) Eosinophils (%) (Auto) 12 % (0-3) H Basophils (%) (Auto) 1 % (0-3) Neutrophils # (Auto) 2.5 x10^3uL (1.8-7.7) Lymphocytes # (Auto) 1.0 x10^3/uL (1.0-4.8) Monocytes # (Auto) 0.4 x10^3/uL (0.0-1.1) Eosinophils # (Auto) 0.5 x10^3/uL (0.0-0.7) Basophils # (Auto) 0.0 x10^3/uL (0.0-0.2) Sodium Level 142 mmol/L (136-145) Potassium Level 3.4 mmol/L (3.5-5.1) L Chloride Level 101 mmol/L (98-107) Carbon Dioxide Level 33 mmol/L (21-32) H Anion Gap 8 (6-14) Blood Urea Nitrogen 15 mg/dL (7-20) Creatinine 0.7 mg/dL (0.6-1.0) Estimated GFR (Cockcroft-Gault) 82.3 BUN/Creatinine Ratio 21 (6-20) H Glucose Level 109 mg/dL (70-99) H Calcium Level 8.9 mg/dL (8.5-10.1) Total Bilirubin 0.2 mg/dL (0.2-1.0) Aspartate Amino Transferase (AST) 11 U/L (15-37) L Alanine Aminotransferase (ALT) 15 U/L (14-59) Alkaline Phosphatase 65 U/L (46-116) Total Protein 6.9 g/dL (6.4-8.2) Albumin 2.4 g/dL (3.4-5.0) L Albumin/Globulin Ratio 0.5 (1.0-1.7) L Current Medications: Meds: Current Medications Acetaminophen (Tylenol) 650 mg PRN Q6HRS PRN PO PAIN / TEMP Last administered on 01/05/19at 13:31; Start 12/27/18 at 14:45; Stop 01/05/19 at 14:51; Status DC Multi-Ingredient Ointment (Analgesic [place]) 1 halle PRN QID PRN TP MUSCLE PAIN; Start 12/27/18 at 14:45 Al Hydroxide/Mg Hydroxide (Mylanta Plus Xs) 15 ml PRN AFTMEALHC PRN PO DYSPEPSIA; Start 12/27/18 at 14:45; Status Cancel Magnesium Hydroxide (Milk Of Magnesia) 2,400 mg PRN QHS PRN PO CONSTIPATION; Start 12/27/18 at 14:45; Status Cancel Acetaminophen (Tylenol) 650 mg PRN Q6HRS PRN PO PAIN; Start 12/27/18 at 15:00; Status UNV Lorazepam (Ativan) 0.5 mg PRN Q4HRS PRN PO AGITATION Last administered on at 03:52; Start 12/27/18 at 15:00 Al Hydroxide/Mg Hydroxide (Mylanta Plus Xs) 30 ml PRN Q4HRS PRN PO DYSPEPSIA; Start 12/27/18 at 15:00 Acetaminophen/ Codeine Phosphate (Tylenol #3) 1 tab PRN Q6HRS PRN PO PAIN Last administered on 01/08/19 01:27; Start 12/27/18 at 15:15 Atorvastatin Calcium (Lipitor) 10 mg QHS PO Last administered on 01/09/19 20:11 ; Start 12/27/18 at 21:00 Gabapentin (Neurontin) 100 mg TID PO Last administered on 01/09/19 20:16; Start 12/27/18 at 21:00 Magnesium Hydroxide (Milk Of Magnesia) 2,400 mg PRN Q6HRS PRN PO CONSTIPATION; Start 12/27/18 at 15:15 Memantine (Namenda) 10 mg BID PO Last administered on 12/31/18 19:53; Start at 21:00; Stop 12/31/18 at 21:12; Status DC Polyethylene Glycol (miraLAX) 17 gm PRN DAILY PRN PO CONSTIPATION; Start at 15:15 Quetiapine Fumarate (SEROquel) 150 mg TID PO Last administered on 01/09/19 20: 11; Start 12/27/18 at 21:00 Trazodone HCl (Desyrel) 50 mg BID PO Last administered on 12/28/18 08:27; Start 12/27/18 at 21:00; Stop 12/28/18 at 17:59; Status DC Cephalexin HCl (Keflex) 500 mg TID PO Last administered on 12/29/18 15:33; Start 12/27/18 at 21:00; Stop 12/29/18 at 17:51; Status DC Sertraline HCl (Zoloft) 25 mg DAILY PO Last administered on 12/31/18 07:30; Start 12/29/18 at 09:00; Stop 12/31/18 at 21:12; Status DC Trazodone HCl (Desyrel) 100 mg QHS PO Last administered on 01/09/19 20:12; Start 12/28/18 at 21:00 Trazodone HCl (Desyrel) 100 mg PRN QHS PRN PO INSOMNIA Last administered on 01/08 01:27; Start 12/28/18 at 18:00 Mirtazapine (Remeron) 7.5 mg QHS PO Last administered on 12/31/18 19:53; Start 12/29/18 at 21:00; Stop 12/31/18 at 21:12; Status DC Olanzapine (ZyPREXA ZYDIS) 2.5 mg PRN Q2HR PRN PO PSYCHOSIS Last administered on 01/09/19 16:27; Start 12/30/18 at 11:15 Divalproex Sodium (Depakote Sprinkles) 125 mg BID@0900,1700 PO Last administered on 01/09/19 16:27; Start 12/31/18 at 09:00 Mirtazapine (Remeron) 15 mg QHS PO Last administered on 01/06/19 19:36; Start 12/31/18 at 21:30; Stop 01/06/19 at 23:12; Status DC Sertraline HCl (Zoloft) 50 mg DAILY PO Last administered on 01/03/19 07:52; Start 01/01/19 at 09:00; Stop 01/03/19 at 23:50; Status DC Doxycycline Hyclate (Vibra-Tab) 100 mg BID PO Last administered on 01/09/19 20: 11; Start 01/01/19 at 21:00; Stop 01/11/19 at 20:00 Bacitracin (Bacitracin Topical Pkt) 1 pkt HS TP Last administered on 01/09/19 20:26; Start 01/01/19 at 21:00 Sertraline HCl (Zoloft) 75 mg DAILY PO Last administered on 01/05/19 07:36; Start 01/04/19 at 09:00; Stop 01/05/19 at 16:31; Status DC Lactobacillus Rhamnosus (Culturelle) 1 cap BID PO Last administered on 20:11; Start 01/03/19 at 21:00 Acetaminophen (Tylenol) 650 mg TID PO Last administered on 01/09/19 20:16; Start 01/05/19 at 21:00 Duloxetine HCl (Cymbalta) 30 mg DAILY PO Last administered on 01/09/19 08:15; Start 01/06/19 at 09:00 Trazodone HCl (Desyrel) 100 mg 1X ONCE PO Last administered on 01/06/19at 19:39 ; Start 01/06/19 at 21:00; Stop 01/06/19 at 21:01; Status DC Amitriptyline HCl (Elavil) 10 mg QHS PO Last administered on 01/08/19at 20:10; Start 01/07/19 at 21:00; Stop 01/09/19 at 19:09; Status DC Amitriptyline HCl (Elavil) 20 mg QHS PO Last administered on 01/09/19at 20:11; Start 01/09/19 at 21:00 Active Scripts Active Reported Cephalexin 500 Mg Capsule 500 Mg PO TID Gabapentin 600 Mg Tablet 100 Mg PO TID Seroquel (Quetiapine Fumarate) 100 Mg Tablet 150 Mg PO TID Atorvastatin Calcium 10 Mg Tablet 10 Mg PO QHS Namenda (Memantine Hcl) 10 Mg Tablet 10 Mg PO BID Trazodone Hcl 50 Mg Tablet 50 Mg PO BID Miralax (Polyethylene Glycol 3350) 17 Gm Powd.pack 17 Gm PO PRN DAILY PRN Tylenol With Codeine #3 Tablet (Acetaminophen With Codeine) 1 Each Tablet 1 Each PO PRN Q6HRS PRN Milk Of Magnesia (Magnesium Hydroxide) 2,400 Mg/10 Ml Oral.susp 30 Ml PO PRN Q6HRS PRN Tylenol (Acetaminophen) 325 Mg Tablet 650 Mg PO PRN Q6HRS PRN Ativan (Lorazepam) 1 Mg Tablet 0.5 Mg PO PRN Q4HRS PRN Mag-Al Plus Xs Suspension (Mag Hydrox/Al Hydrox/Simeth) 30 Ml Oral.susp 30 Ml PO PRN Q4HRS PRN I have reviewed the current psychotropics carefully including drug interactions. Risk benefit ratio favors no change other than as noted in my dictated progress note. Diagnosis: Problems: (1) Dementia (2) Behavior problem (3) Medical clearance for psychiatric admission (4) Anxiety disorder (5) Dementia in Alzheimer's disease with delusions (6) Dementia in Alzheimer's disease with depression (7) Dementia, vascular, with delusions (8) Dementia, vascular, with depression (9) Impulse control disorder NAJMA MCCAIN MD Jan 09, 2019 22:00
[2019-01-10 05:38] VITALS: BP 133/63
[2019-01-10] MEDS: ACETAMINOPHEN 325 MG TABLET PO SCH ×3 (07:39→22:09)
[2019-01-10] MEDS: LACTOBACILLUS RHAMNOSUS GG 1 CAPSULE. PO SCH ×2 (07:39→22:08)
[2019-01-10] MEDS: QUEtiapine 50 MG TABLET. PO SCH ×3 (07:39→22:10)
[2019-01-10] MEDS: DOXYCYCLINE HYCLATE 100 MG TABLET PO SCH ×2 (07:39→22:08)
[2019-01-10] MEDS: DULoxetine HCL 30 MG CAPSULE.DR PO SCH (07:39)
[2019-01-10] MEDS: DIVALPROEX 125 MG CAP.SPRINK PO SCH ×2 (07:39→16:35)
[2019-01-10] MEDS: GABAPENTIN 100 MG CAPSULE. PO SCH ×3 (07:39→22:08)
[2019-01-10 16:09] VITALS: BP 97/60
--- NOTE | 2019-01-10 19:24 | PN ---
DATE: 01/09/2019 PSYCHIATRIC PROGRESS NOTE This late entry 01/09/2019 covers elements not covered in my initial note. SUBJECTIVE: I met with the patient in the evening. The patient slept for 3/4 hours previous night. She was agitated in the evening of 01/08/2019, wandering in the wheelchair. During the day, she is trying to use the walker, received Zyprexa at 4:30 p.m. REVIEW OF SYSTEMS: No CV, , pulmonary, eye, ENT system symptoms on review. Reliability poor. Gait unsteady. MENTAL STATUS EXAM: Oriented to herself. Insight, judgment, recent and remote memory, attention, concentration, fund of knowledge poor, consistent with her diagnosis mentioned in my initial note. PLAN: Increase amitriptyline from 10 mg at bedtime to 20 mg at bedtime, both for the insomnia and to help with the daytime anxiety as well. Rest unchanged for now. NAJMA MCCAIN MD DR: ERIN/rajesh JOB#: [id number] / [id number]
[2019-01-10] MEDS: BACITRACIN ZINC TOPICAL OINT PACKET. TP SCH (21:00)
[2019-01-10] MEDS: traZODone 100 MG TABLET. PO SCH (22:08)
[2019-01-10] MEDS: AMITRIPTYLINE HCL 10 MG TABLET PO SCH (22:09)
[2019-01-10] MEDS: ATORVASTATIN CALCIUM 10 MG TABLET. PO SCH (22:10)
--- NOTE | 2019-01-10 22:13 | PDOC ---
Exam Note: Yoel Note: Please also refer to the separate dictated note~for this date of service dictated separately.~Patient seen individually. Discussed the patient with Nursing staff reviewed the chart.~Reviewed interim history and current functioning. Reviewed vital signs,~Labs/ Radiology~and current medications noted below. Continue current treatment with the changes noted in the dictated addendum note Assessment: Vital Signs: Vital Signs Date Time Temp Pulse Resp B/P (MAP) Pulse Ox O2 Delivery O2 Flow Rate FiO2 01/10/19 16:09 97.6 92 16 97/60 (72) 94 01/09/19 16:06 Room Air I&O Intake and Output 01/10/19 06:59 Intake Total 840 ml Balance 840 ml Intake Oral 840 ml Current Medications: Meds: Current Medications Acetaminophen (Tylenol) 650 mg PRN Q6HRS PRN PO PAIN / TEMP Last administered on 01/05/19at 13:31; Start 12/27/18 at 14:45; Stop 01/05/19 at 14:51; Status DC Multi-Ingredient Ointment (Analgesic [place]) 1 halle PRN QID PRN TP MUSCLE PAIN; Start 12/27/18 at 14:45 Al Hydroxide/Mg Hydroxide (Mylanta Plus Xs) 15 ml PRN AFTMEALHC PRN PO DYSPEPSIA; Start 12/27/18 at 14:45; Status Cancel Magnesium Hydroxide (Milk Of Magnesia) 2,400 mg PRN QHS PRN PO CONSTIPATION; Start 12/27/18 at 14:45; Status Cancel Acetaminophen (Tylenol) 650 mg PRN Q6HRS PRN PO PAIN; Start 12/27/18 at 15:00; Status UNV Lorazepam (Ativan) 0.5 mg PRN Q4HRS PRN PO AGITATION Last administered on at 03:52; Start 12/27/18 at 15:00 Al Hydroxide/Mg Hydroxide (Mylanta Plus Xs) 30 ml PRN Q4HRS PRN PO DYSPEPSIA; Start 12/27/18 at 15:00 Acetaminophen/ Codeine Phosphate (Tylenol #3) 1 tab PRN Q6HRS PRN PO PAIN Last administered on 01/08/19at 01:27; Start 12/27/18 at 15:15 Atorvastatin Calcium (Lipitor) 10 mg QHS PO Last administered on 01/10/19 22:10 ; Start 12/27/18 at 21:00 Gabapentin (Neurontin) 100 mg TID PO Last administered on 01/10/19 22:08; Start 12/27/18 at 21:00 Magnesium Hydroxide (Milk Of Magnesia) 2,400 mg PRN Q6HRS PRN PO CONSTIPATION; Start 12/27/18 at 15:15 Memantine (Namenda) 10 mg BID PO Last administered on 12/31/18 19:53; Start at 21:00; Stop 12/31/18 at 21:12; Status DC Polyethylene Glycol (miraLAX) 17 gm PRN DAILY PRN PO CONSTIPATION; Start at 15:15 Quetiapine Fumarate (SEROquel) 150 mg TID PO Last administered on 01/10/19 22: 10; Start 12/27/18 at 21:00 Trazodone HCl (Desyrel) 50 mg BID PO Last administered on 12/28/18 08:27; Start 12/27/18 at 21:00; Stop 12/28/18 at 17:59; Status DC Cephalexin HCl (Keflex) 500 mg TID PO Last administered on 12/29/18 15:33; Start 12/27/18 at 21:00; Stop 12/29/18 at 17:51; Status DC Sertraline HCl (Zoloft) 25 mg DAILY PO Last administered on 12/31/18 07:30; Start 12/29/18 at 09:00; Stop 12/31/18 at 21:12; Status DC Trazodone HCl (Desyrel) 100 mg QHS PO Last administered on 01/10/19 22:08; Start 12/28/18 at 21:00 Trazodone HCl (Desyrel) 100 mg PRN QHS PRN PO INSOMNIA Last administered on 01/08 01:27; Start 12/28/18 at 18:00 Mirtazapine (Remeron) 7.5 mg QHS PO Last administered on 12/31/18 19:53; Start 12/29/18 at 21:00; Stop 12/31/18 at 21:12; Status DC Olanzapine (ZyPREXA ZYDIS) 2.5 mg PRN Q2HR PRN PO PSYCHOSIS Last administered on 01/10/19 16:00; Start 12/30/18 at 11:15 Divalproex Sodium (Depakote Sprinkles) 125 mg BID@0900,1700 PO Last administered on 01/10/19 16:35; Start 12/31/18 at 09:00; Stop 01/10/19 at 18:12; Status DC Mirtazapine (Remeron) 15 mg QHS PO Last administered on 01/06/19 19:36; Start 12/31/18 at 21:30; Stop 01/06/19 at 23:12; Status DC Sertraline HCl (Zoloft) 50 mg DAILY PO Last administered on 01/03/19 07:52; Start 01/01/19 at 09:00; Stop 01/03/19 at 23:50; Status DC Doxycycline Hyclate (Vibra-Tab) 100 mg BID PO Last administered on 01/10/19 22: 08; Start 01/01/19 at 21:00; Stop 01/11/19 at 20:00 Bacitracin (Bacitracin Topical Pkt) 1 pkt HS TP Last administered on 01/10/19 21:00; Start 01/01/19 at 21:00 Sertraline HCl (Zoloft) 75 mg DAILY PO Last administered on 01/05/19 07:36; Start 01/04/19 at 09:00; Stop 01/05/19 at 16:31; Status DC Lactobacillus Rhamnosus (Culturelle) 1 cap BID PO Last administered on 22:08; Start 01/03/19 at 21:00 Acetaminophen (Tylenol) 650 mg TID PO Last administered on 01/10/19 22:09; Start 01/05/19 at 21:00 Duloxetine HCl (Cymbalta) 30 mg DAILY PO Last administered on 01/10/19 07:39; Start 01/06/19 at 09:00 Trazodone HCl (Desyrel) 100 mg 1X ONCE PO Last administered on 01/06/19 19:39 ; Start 01/06/19 at 21:00; Stop 01/06/19 at 21:01; Status DC Amitriptyline HCl (Elavil) 10 mg QHS PO Last administered on 01/08/19at 20:10; Start 01/07/19 at 21:00; Stop 01/09/19 at 19:09; Status DC Amitriptyline HCl (Elavil) 20 mg QHS PO Last administered on 01/10/19at 22:09; Start 01/09/19 at 21:00 Divalproex Sodium (Depakote Sprinkles) 125 mg 0900,1300,1700 PO ; Start 01/11/19 at 09:00 Active Scripts Active Reported Cephalexin 500 Mg Capsule 500 Mg PO TID Gabapentin 600 Mg Tablet 100 Mg PO TID Seroquel (Quetiapine Fumarate) 100 Mg Tablet 150 Mg PO TID Atorvastatin Calcium 10 Mg Tablet 10 Mg PO QHS Namenda (Memantine Hcl) 10 Mg Tablet 10 Mg PO BID Trazodone Hcl 50 Mg Tablet 50 Mg PO BID Miralax (Polyethylene Glycol 3350) 17 Gm Powd.pack 17 Gm PO PRN DAILY PRN Tylenol With Codeine #3 Tablet (Acetaminophen With Codeine) 1 Each Tablet 1 Each PO PRN Q6HRS PRN Milk Of Magnesia (Magnesium Hydroxide) 2,400 Mg/10 Ml Oral.susp 30 Ml PO PRN Q6HRS PRN Tylenol (Acetaminophen) 325 Mg Tablet 650 Mg PO PRN Q6HRS PRN Ativan (Lorazepam) 1 Mg Tablet 0.5 Mg PO PRN Q4HRS PRN Mag-Al Plus Xs Suspension (Mag Hydrox/Al Hydrox/Simeth) 30 Ml Oral.susp 30 Ml PO PRN Q4HRS PRN I have reviewed the current psychotropics carefully including drug interactions. Risk benefit ratio favors no change other than as noted in my dictated progress note. Diagnosis: Problems: (1) Dementia (2) Behavior problem (3) Medical clearance for psychiatric admission (4) Anxiety disorder (5) Dementia in Alzheimer's disease with delusions (6) Dementia in Alzheimer's disease with depression (7) Dementia, vascular, with delusions (8) Dementia, vascular, with depression (9) Impulse control disorder NAJMA MCCAIN MD Jan 10, 2019 22:13
[2019-01-11 05:58] VITALS: BP 111/66
[2019-01-11] MEDS: DULoxetine HCL 30 MG CAPSULE.DR PO SCH (08:07)
[2019-01-11] MEDS: QUEtiapine 50 MG TABLET. PO SCH ×3 (08:07→19:48)
[2019-01-11] MEDS: LACTOBACILLUS RHAMNOSUS GG 1 CAPSULE. PO SCH ×2 (08:07→19:48)
[2019-01-11] MEDS: ACETAMINOPHEN 325 MG TABLET PO SCH ×3 (08:07→19:49)
[2019-01-11] MEDS: DOXYCYCLINE HYCLATE 100 MG TABLET PO SCH (08:07)
[2019-01-11] MEDS: GABAPENTIN 100 MG CAPSULE. PO SCH ×3 (08:08→19:49)
[2019-01-11] MEDS: DIVALPROEX 125 MG CAP.SPRINK PO SCH ×3 (08:09→17:15)
[2019-01-11 16:18] VITALS: BP 124/76
[2019-01-11] MEDS: ATORVASTATIN CALCIUM 10 MG TABLET. PO SCH (19:48)
[2019-01-11] MEDS: AMITRIPTYLINE HCL 10 MG TABLET PO SCH (19:48)
[2019-01-11] MEDS: traZODone 100 MG TABLET. PO SCH (19:48)
[2019-01-11] MEDS ORDERED: BACITRACIN ZINC TOPICAL OINT PACKET. TP PRN (21:00)
[2019-01-11] MEDS: traZODone 100 MG TABLET. PO PRN (21:39)
[2019-01-11] MEDS: LORazepam 0.5 MG TABLET PO PRN (21:39)
--- NOTE | 2019-01-11 22:07 | PDOC ---
Exam Note: Yoel Note: Please also refer to the separate dictated note~for this date of service dictated separately.~Patient seen individually. Discussed the patient with Nursing staff reviewed the chart.~Reviewed interim history and current functioning. Reviewed vital signs,~Labs/ Radiology~and current medications noted below. Continue current treatment with the changes noted in the dictated addendum note Assessment: Vital Signs: Vital Signs Date Time Temp Pulse Resp B/P (MAP) Pulse Ox O2 Delivery O2 Flow Rate FiO2 01/11/19 16:18 97.8 82 20 124/76 (92) 94 Room Air I&O Intake and Output 01/11/19 06:59 Intake Total 600 ml Balance 600 ml Intake Oral 600 ml # Bowel Movements 1 Current Medications: Meds: Current Medications Acetaminophen (Tylenol) 650 mg PRN Q6HRS PRN PO PAIN / TEMP Last administered on 01/05/19at 13:31; Start 12/27/18 at 14:45; Stop 01/05/19 at 14:51; Status DC Multi-Ingredient Ointment (Analgesic [place]) 1 halle PRN QID PRN TP MUSCLE PAIN; Start 12/27/18 at 14:45 Al Hydroxide/Mg Hydroxide (Mylanta Plus Xs) 15 ml PRN AFTMEALHC PRN PO DYSPEPSIA; Start 12/27/18 at 14:45; Status Cancel Magnesium Hydroxide (Milk Of Magnesia) 2,400 mg PRN QHS PRN PO CONSTIPATION; Start 12/27/18 at 14:45; Status Cancel Acetaminophen (Tylenol) 650 mg PRN Q6HRS PRN PO PAIN; Start 12/27/18 at 15:00; Status UNV Lorazepam (Ativan) 0.5 mg PRN Q4HRS PRN PO AGITATION Last administered on 21:39; Start 12/27/18 at 15:00 Al Hydroxide/Mg Hydroxide (Mylanta Plus Xs) 30 ml PRN Q4HRS PRN PO DYSPEPSIA; Start 12/27/18 at 15:00 Acetaminophen/ Codeine Phosphate (Tylenol #3) 1 tab PRN Q6HRS PRN PO PAIN Last administered on 01/08/19at 01:27; Start 12/27/18 at 15:15 Atorvastatin Calcium (Lipitor) 10 mg QHS PO Last administered on 3/7/19at 19:48 ; Start 12/27/18 at 21:00 Gabapentin (Neurontin) 100 mg TID PO Last administered on 01/11/19 19:49; Start 12/27/18 at 21:00 Magnesium Hydroxide (Milk Of Magnesia) 2,400 mg PRN Q6HRS PRN PO CONSTIPATION; Start 12/27/18 at 15:15 Memantine (Namenda) 10 mg BID PO Last administered on 12/31/18 19:53; Start at 21:00; Stop 12/31/18 at 21:12; Status DC Polyethylene Glycol (miraLAX) 17 gm PRN DAILY PRN PO CONSTIPATION; Start at 15:15 Quetiapine Fumarate (SEROquel) 150 mg TID PO Last administered on 01/11/19 19: 48; Start 12/27/18 at 21:00 Trazodone HCl (Desyrel) 50 mg BID PO Last administered on 12/28/18 08:27; Start 12/27/18 at 21:00; Stop 12/28/18 at 17:59; Status DC Cephalexin HCl (Keflex) 500 mg TID PO Last administered on 12/29/18 15:33; Start 12/27/18 at 21:00; Stop 12/29/18 at 17:51; Status DC Sertraline HCl (Zoloft) 25 mg DAILY PO Last administered on 12/31/18 07:30; Start 12/29/18 at 09:00; Stop 12/31/18 at 21:12; Status DC Trazodone HCl (Desyrel) 100 mg QHS PO Last administered on 01/11/19 19:48; Start 12/28/18 at 21:00 Trazodone HCl (Desyrel) 100 mg PRN QHS PRN PO INSOMNIA Last administered on 01/11 21:39; Start 12/28/18 at 18:00 Mirtazapine (Remeron) 7.5 mg QHS PO Last administered on 12/31/18 19:53; Start 12/29/18 at 21:00; Stop 12/31/18 at 21:12; Status DC Olanzapine (ZyPREXA ZYDIS) 2.5 mg PRN Q2HR PRN PO PSYCHOSIS Last administered on 01/10/19 16:00; Start 12/30/18 at 11:15 Divalproex Sodium (Depakote Sprinkles) 125 mg BID@0900,1700 PO Last administered on 01/10/19 16:35; Start 12/31/18 at 09:00; Stop 01/10/19 at 18:12; Status DC Mirtazapine (Remeron) 15 mg QHS PO Last administered on 01/06/19 19:36; Start 12/31/18 at 21:30; Stop 01/06/19 at 23:12; Status DC Sertraline HCl (Zoloft) 50 mg DAILY PO Last administered on 01/03/19 07:52; Start 01/01/19 at 09:00; Stop 01/03/19 at 23:50; Status DC Doxycycline Hyclate (Vibra-Tab) 100 mg BID PO Last administered on 01/11/19 08: 07; Start 01/01/19 at 21:00; Stop 01/11/19 at 20:00; Status DC Bacitracin (Bacitracin Topical Pkt) 1 pkt HS TP Last administered on 01/10/19 21:00; Start 01/01/19 at 21:00; Stop 01/10/19 at 22:53; Status DC Sertraline HCl (Zoloft) 75 mg DAILY PO Last administered on 01/05/19 07:36; Start 01/04/19 at 09:00; Stop 01/05/19 at 16:31; Status DC Lactobacillus Rhamnosus (Culturelle) 1 cap BID PO Last administered on 19:48; Start 01/03/19 at 21:00 Acetaminophen (Tylenol) 650 mg TID PO Last administered on 01/11/19 19:49; Start 01/05/19 at 21:00 Duloxetine HCl (Cymbalta) 30 mg DAILY PO Last administered on 01/11/19 08:07; Start 01/06/19 at 09:00 Trazodone HCl (Desyrel) 100 mg 1X ONCE PO Last administered on 01/06/19 19:39 ; Start 01/06/19 at 21:00; Stop 01/06/19 at 21:01; Status DC Amitriptyline HCl (Elavil) 10 mg QHS PO Last administered on 01/08/19at 20:10; Start 01/07/19 at 21:00; Stop 01/09/19 at 19:09; Status DC Amitriptyline HCl (Elavil) 20 mg QHS PO Last administered on 01/11/19at 19:48; Start 01/09/19 at 21:00 Divalproex Sodium (Depakote Sprinkles) 125 mg 0900,1300,1700 PO Last administered on 01/11/19at 17:15; Start 01/11/19 at 09:00 Bacitracin (Bacitracin Topical Pkt) 1 pkt PRN BID PRN TP PUBIC AREA PELICULITIS ; Start 01/11/19 at 21:00 Active Scripts Active Reported Cephalexin 500 Mg Capsule 500 Mg PO TID Gabapentin 600 Mg Tablet 100 Mg PO TID Seroquel (Quetiapine Fumarate) 100 Mg Tablet 150 Mg PO TID Atorvastatin Calcium 10 Mg Tablet 10 Mg PO QHS Namenda (Memantine Hcl) 10 Mg Tablet 10 Mg PO BID Trazodone Hcl 50 Mg Tablet 50 Mg PO BID Miralax (Polyethylene Glycol 3350) 17 Gm Powd.pack 17 Gm PO PRN DAILY PRN Tylenol With Codeine #3 Tablet (Acetaminophen With Codeine) 1 Each Tablet 1 Each PO PRN Q6HRS PRN Milk Of Magnesia (Magnesium Hydroxide) 2,400 Mg/10 Ml Oral.susp 30 Ml PO PRN Q6HRS PRN Tylenol (Acetaminophen) 325 Mg Tablet 650 Mg PO PRN Q6HRS PRN Ativan (Lorazepam) 1 Mg Tablet 0.5 Mg PO PRN Q4HRS PRN Mag-Al Plus Xs Suspension (Mag Hydrox/Al Hydrox/Simeth) 30 Ml Oral.susp 30 Ml PO PRN Q4HRS PRN I have reviewed the current psychotropics carefully including drug interactions. Risk benefit ratio favors no change other than as noted in my dictated progress note. Diagnosis: Problems: (1) Dementia (2) Behavior problem (3) Medical clearance for psychiatric admission (4) Anxiety disorder (5) Dementia in Alzheimer's disease with delusions (6) Dementia in Alzheimer's disease with depression (7) Dementia, vascular, with delusions (8) Dementia, vascular, with depression (9) Impulse control disorder NAJMA MCCAIN MD Jan 11, 2019 22:07
[2019-01-12 06:30] VITALS: BP 135/80
[2019-01-12] MEDS: QUEtiapine 50 MG TABLET. PO SCH ×3 (07:43→19:55)
[2019-01-12] MEDS: ACETAMINOPHEN 325 MG TABLET PO SCH ×3 (07:43→19:55)
[2019-01-12] MEDS: LACTOBACILLUS RHAMNOSUS GG 1 CAPSULE. PO SCH ×2 (07:44→19:55)
[2019-01-12] MEDS: DULoxetine HCL 30 MG CAPSULE.DR PO SCH (07:44)
[2019-01-12] MEDS: DIVALPROEX 125 MG CAP.SPRINK PO SCH ×3 (07:45→16:57)
[2019-01-12] MEDS: GABAPENTIN 100 MG CAPSULE. PO SCH ×3 (07:46→19:55)
[2019-01-12 15:27] VITALS: BP 102/64
--- NOTE | 2019-01-12 19:44 | PN ---
DATE: 01/10/2019 PSYCHIATRIC PROGRESS NOTE This late entry 01/10/2019 covers elements not covered in my initial note. SUBJECTIVE: I met with the patient in the evening. The patient slept 4-1/2 hours previous night. The patient has been wandering, otherwise cooperative with medications, took her a.m. meds at 7:45, then was calmer; received Zyprexa at 4:00 p.m. because she is constantly wandering. Trying to get off the unit. REVIEW OF SYSTEMS: Ambulation impaired with walker. No CV, , pulmonary, eye, ENT system symptoms on review. Reliability poor. MENTAL STATUS EXAM: Oriented to herself. Insight, judgment, recent and remote memory, attention, concentration, fund of knowledge poor, consistent with her diagnosis mentioned in my initial note. PLAN: Valproic acid level is low at 16 on Depakote Sprinkles 125 b.i.d. We will increase to 125 mg 3 times a day. Check CBC, CMP, valproic acid level in 3 days. Rest unchanged from initial note. MAN Baldemar MCCAIN MD DR: ERIN/rajesh JOB#: [id number] / [id number]
[2019-01-12] MEDS: AMITRIPTYLINE HCL 10 MG TABLET PO SCH (19:55)
[2019-01-12] MEDS: ATORVASTATIN CALCIUM 10 MG TABLET. PO SCH (19:55)
[2019-01-12] MEDS: traZODone 100 MG TABLET. PO SCH (19:55)
--- NOTE | 2019-01-12 19:55 | PN ---
DATE: 01/11/2019 PSYCHIATRIC PROGRESS NOTE This late entry 01/11/2019 covers elements not covered in my initial note. SUBJECTIVE: I met with the patient in the evening. The patient was also staffed at a treatment team meeting with the entire team earlier in the day. The patient slept 6-3/4 hours previous night. Appetite 70%. 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 Otherwise, quite confused. REVIEW OF SYSTEMS: No CV, , pulmonary, eye, ENT system symptoms on review. Reliability poor. MENTAL STATUS EXAM: Oriented to herself. Insight, judgment, recent and remote memory, attention, concentration, fund of knowledge poor, consistent with her diagnosis mentioned in my initial note. PLAN: No change from initial note. MAN Baldemar MCCAIN MD DR: ERIN/rajesh JOB#: [id number] / [id number]
--- NOTE | 2019-01-12 22:26 | PDOC ---
Exam Note: Yoel Note: Please also refer to the separate dictated note~for this date of service dictated separately.~Patient seen individually. Discussed the patient with Nursing staff reviewed the chart.~Reviewed interim history and current functioning. Reviewed vital signs,~Labs/ Radiology~and current medications noted below. Continue current treatment with the changes noted in the dictated addendum note Assessment: Vital Signs: Vital Signs Date Time Temp Pulse Resp B/P (MAP) Pulse Ox O2 Delivery O2 Flow Rate FiO2 01/12/19 15:27 97.6 72 18 102/64 (77) 96 Room Air I&O Intake and Output 01/12/19 06:59 Intake Total 840 ml Balance 840 ml Intake Oral 840 ml # Bowel Movements 1 Current Medications: Meds: Current Medications Acetaminophen (Tylenol) 650 mg PRN Q6HRS PRN PO PAIN / TEMP Last administered on 01/05/19at 13:31; Start 12/27/18 at 14:45; Stop 01/05/19 at 14:51; Status DC Multi-Ingredient Ointment (Analgesic [place]) 1 halle PRN QID PRN TP MUSCLE PAIN; Start 12/27/18 at 14:45 Al Hydroxide/Mg Hydroxide (Mylanta Plus Xs) 15 ml PRN AFTMEALHC PRN PO DYSPEPSIA; Start 12/27/18 at 14:45; Status Cancel Magnesium Hydroxide (Milk Of Magnesia) 2,400 mg PRN QHS PRN PO CONSTIPATION; Start 12/27/18 at 14:45; Status Cancel Acetaminophen (Tylenol) 650 mg PRN Q6HRS PRN PO PAIN; Start 12/27/18 at 15:00; Status UNV Lorazepam (Ativan) 0.5 mg PRN Q4HRS PRN PO AGITATION Last administered on at 21:39; Start 12/27/18 at 15:00 Al Hydroxide/Mg Hydroxide (Mylanta Plus Xs) 30 ml PRN Q4HRS PRN PO DYSPEPSIA; Start 12/27/18 at 15:00 Acetaminophen/ Codeine Phosphate (Tylenol #3) 1 tab PRN Q6HRS PRN PO PAIN Last administered on 01/08/19at 01:27; Start 12/27/18 at 15:15 Atorvastatin Calcium (Lipitor) 10 mg QHS PO Last administered on 01/12/19 19:55 ; Start 12/27/18 at 21:00 Gabapentin (Neurontin) 100 mg TID PO Last administered on 01/12/19 19:55; Start 12/27/18 at 21:00 Magnesium Hydroxide (Milk Of Magnesia) 2,400 mg PRN Q6HRS PRN PO CONSTIPATION; Start 12/27/18 at 15:15 Memantine (Namenda) 10 mg BID PO Last administered on 12/31/18 19:53; Start at 21:00; Stop 12/31/18 at 21:12; Status DC Polyethylene Glycol (miraLAX) 17 gm PRN DAILY PRN PO CONSTIPATION; Start at 15:15 Quetiapine Fumarate (SEROquel) 150 mg TID PO Last administered on 01/12/19 19: 55; Start 12/27/18 at 21:00 Trazodone HCl (Desyrel) 50 mg BID PO Last administered on 12/28/18 08:27; Start 12/27/18 at 21:00; Stop 12/28/18 at 17:59; Status DC Cephalexin HCl (Keflex) 500 mg TID PO Last administered on 12/29/18 15:33; Start 12/27/18 at 21:00; Stop 12/29/18 at 17:51; Status DC Sertraline HCl (Zoloft) 25 mg DAILY PO Last administered on 12/31/18 07:30; Start 12/29/18 at 09:00; Stop 12/31/18 at 21:12; Status DC Trazodone HCl (Desyrel) 100 mg QHS PO Last administered on 01/12/19 19:55; Start 12/28/18 at 21:00 Trazodone HCl (Desyrel) 100 mg PRN QHS PRN PO INSOMNIA Last administered on 01/11 21:39; Start 12/28/18 at 18:00 Mirtazapine (Remeron) 7.5 mg QHS PO Last administered on 12/31/18 19:53; Start 12/29/18 at 21:00; Stop 12/31/18 at 21:12; Status DC Olanzapine (ZyPREXA ZYDIS) 2.5 mg PRN Q2HR PRN PO PSYCHOSIS Last administered on 01/10/19 16:00; Start 12/30/18 at 11:15 Divalproex Sodium (Depakote Sprinkles) 125 mg BID@0900,1700 PO Last administered on 01/10/19 16:35; Start 12/31/18 at 09:00; Stop 01/10/19 at 18:12; Status DC Mirtazapine (Remeron) 15 mg QHS PO Last administered on 01/06/19 19:36; Start 12/31/18 at 21:30; Stop 01/06/19 at 23:12; Status DC Sertraline HCl (Zoloft) 50 mg DAILY PO Last administered on 01/03/19 07:52; Start 01/01/19 at 09:00; Stop 01/03/19 at 23:50; Status DC Doxycycline Hyclate (Vibra-Tab) 100 mg BID PO Last administered on 01/11/19 08: 07; Start 01/01/19 at 21:00; Stop 01/11/19 at 20:00; Status DC Bacitracin (Bacitracin Topical Pkt) 1 pkt HS TP Last administered on 01/10/19 21:00; Start 01/01/19 at 21:00; Stop 01/10/19 at 22:53; Status DC Sertraline HCl (Zoloft) 75 mg DAILY PO Last administered on 01/05/19 07:36; Start 01/04/19 at 09:00; Stop 01/05/19 at 16:31; Status DC Lactobacillus Rhamnosus (Culturelle) 1 cap BID PO Last administered on 19:55; Start 01/03/19 at 21:00 Acetaminophen (Tylenol) 650 mg TID PO Last administered on 01/12/19 19:55; Start 01/05/19 at 21:00 Duloxetine HCl (Cymbalta) 30 mg DAILY PO Last administered on 01/12/19 07:44; Start 01/06/19 at 09:00 Trazodone HCl (Desyrel) 100 mg 1X ONCE PO Last administered on 01/06/19 19:39 ; Start 01/06/19 at 21:00; Stop 01/06/19 at 21:01; Status DC Amitriptyline HCl (Elavil) 10 mg QHS PO Last administered on 01/08/19at 20:10; Start 01/07/19 at 21:00; Stop 01/09/19 at 19:09; Status DC Amitriptyline HCl (Elavil) 20 mg QHS PO Last administered on 01/12/19 19:55; Start 01/09/19 at 21:00 Divalproex Sodium (Depakote Sprinkles) 125 mg 0900,1300,1700 PO Last administered on 01/12/19at 16:57; Start 01/11/19 at 09:00 Bacitracin (Bacitracin Topical Pkt) 1 pkt PRN BID PRN TP PUBIC AREA PELICULITIS ; Start 01/11/19 at 21:00 Active Scripts Active Reported Cephalexin 500 Mg Capsule 500 Mg PO TID Gabapentin 600 Mg Tablet 100 Mg PO TID Seroquel (Quetiapine Fumarate) 100 Mg Tablet 150 Mg PO TID Atorvastatin Calcium 10 Mg Tablet 10 Mg PO QHS Namenda (Memantine Hcl) 10 Mg Tablet 10 Mg PO BID Trazodone Hcl 50 Mg Tablet 50 Mg PO BID Miralax (Polyethylene Glycol 3350) 17 Gm Powd.pack 17 Gm PO PRN DAILY PRN Tylenol With Codeine #3 Tablet (Acetaminophen With Codeine) 1 Each Tablet 1 Each PO PRN Q6HRS PRN Milk Of Magnesia (Magnesium Hydroxide) 2,400 Mg/10 Ml Oral.susp 30 Ml PO PRN Q6HRS PRN Tylenol (Acetaminophen) 325 Mg Tablet 650 Mg PO PRN Q6HRS PRN Ativan (Lorazepam) 1 Mg Tablet 0.5 Mg PO PRN Q4HRS PRN Mag-Al Plus Xs Suspension (Mag Hydrox/Al Hydrox/Simeth) 30 Ml Oral.susp 30 Ml PO PRN Q4HRS PRN I have reviewed the current psychotropics carefully including drug interactions. Risk benefit ratio favors no change other than as noted in my dictated progress note. Diagnosis: Problems: (1) Dementia (2) Behavior problem (3) Medical clearance for psychiatric admission (4) Anxiety disorder (5) Dementia in Alzheimer's disease with delusions (6) Dementia in Alzheimer's disease with depression (7) Dementia, vascular, with delusions (8) Dementia, vascular, with depression (9) Impulse control disorder KALYN,MAN M MD Jan 12, 2019 22:26
[2019-01-13 05:45] VITALS: BP 124/70
[2019-01-13] MEDS: LACTOBACILLUS RHAMNOSUS GG 1 CAPSULE. PO SCH ×2 (07:16→19:25)
[2019-01-13] MEDS: ACETAMINOPHEN 325 MG TABLET PO SCH ×3 (07:16→19:25)
[2019-01-13] MEDS: DULoxetine HCL 30 MG CAPSULE.DR PO SCH (07:16)
[2019-01-13] MEDS: DIVALPROEX 125 MG CAP.SPRINK PO SCH ×3 (07:16→18:47)
[2019-01-13] MEDS: QUEtiapine 50 MG TABLET. PO SCH ×3 (07:16→19:26)
[2019-01-13] MEDS: GABAPENTIN 100 MG CAPSULE. PO SCH ×3 (07:19→19:26)
[2019-01-13 15:46] VITALS: BP 117/68
[2019-01-13] MEDS: LORazepam 0.5 MG TABLET PO PRN (18:47)
[2019-01-13] MEDS: ATORVASTATIN CALCIUM 10 MG TABLET. PO SCH (19:25)
[2019-01-13] MEDS: traZODone 100 MG TABLET. PO SCH (19:25)
[2019-01-13] MEDS: AMITRIPTYLINE HCL 10 MG TABLET PO SCH (19:26)
--- NOTE | 2019-01-13 22:33 | PN ---
DATE: 01/13/2019 SUBJECTIVE: This patient was seen today, met with the staff, chart reviewed. The patient continues to have problems, emotionally labile, withdrawn, on wheelchair, complains of chronic pain. OBSERVATION: VITAL SIGNS: Temperature 97.7, blood pressure 124/70, pulse 78, respiration 18, O2 sat 94%. Slept about 7-1/2 hours last night. The patient's appetite has improved. MEDICATIONS: Reviewed. She is currently on Depakote 125 mg t.i.d., amitriptyline 20 mg at night, Cymbalta 30 mg daily, olanzapine 2.5 mg q. 2 hours p.r.n., trazodone 100 mg at night, Seroquel 150 mg t.i.d., gabapentin 100 mg t.i.d., lorazepam 0.5 mg q. 4 hours p.r.n. The patient is not having any side effects to the medications. LABORATORY DATA: The patient's lab reviewed and all within normal range except for hemoglobin A1c of 6.4. Staff reports no falls. ASSESSMENT: 1. Major neurocognitive disorder, Alzheimer's, vascular with delusion, depression and behavioral disturbances. 2. Anxiety disorder, unspecified. 3. Impulse control disorder, unspecified. PLAN: To continue with the current treatment plan. OLAMIDE DONOHUE MD DR: ALOK/rajesh JOB#: [id number] / [id number]
[2019-01-14 06:03] VITALS: BP 128/69
[2019-01-14] MEDS: DIVALPROEX 125 MG CAP.SPRINK PO SCH ×3 (07:09→17:54)
[2019-01-14] MEDS: DULoxetine HCL 30 MG CAPSULE.DR PO SCH (07:09)
[2019-01-14] MEDS: QUEtiapine 50 MG TABLET. PO SCH ×3 (07:09→19:53)
[2019-01-14] MEDS: LACTOBACILLUS RHAMNOSUS GG 1 CAPSULE. PO SCH ×2 (07:09→19:53)
[2019-01-14] MEDS: ACETAMINOPHEN 325 MG TABLET PO SCH ×3 (07:10→19:53)
[2019-01-14] MEDS: GABAPENTIN 100 MG CAPSULE. PO SCH ×3 (07:11→19:53)
[2019-01-14 07:48] LABS: BASO % 1 % (0-3); EOS # 0.3 x10^3/uL (0.0-0.7); EOS % 6 % (0-3); HEMATOCRIT 36.3 % (36.0-47.0); HEMOGLOBIN 11.6 g/dL (12.0-15.5); LYMPH # 1.2 x10^3/uL (1.0-4.8); LYMPH % 25 % (24-48); MEAN CORPUSCULAR HEMOGLOBIN 27 pg (25-35); MEAN CORPUSCULAR HGB CONC 32 g/dL (31-37); MEAN CORPUSCULAR VOLUME 83 fL (79-100); MONO # 0.5 x10^3/uL (0.0-1.1); MONO % 9 % (0-9); NEUT % 59 % (31-73); PLATELET COUNT 422 x10^3/uL (140-400); RED BLOOD COUNT 4.35 x10^6/uL (3.50-5.40); RED CELL DISTRIBUTION WIDTH 17.1 % (11.5-14.5)
[2019-01-14 08:06] LABS: ALBUMIN 2.9 g/dL (3.4-5.0); ALBUMIN/GLOBULIN RATIO 0.7 (1.0-1.7); ALK PHOS 70 U/L (46-116); ALT (SGPT) 15 U/L (14-59); ANION GAP 8 (6-14); AST (SGOT) 13 U/L (15-37); BLOOD UREA NITROGEN 13 mg/dL (7-20); BUN/CREATININE RATIO 16 (6-20); CALCIUM 9.2 mg/dL (8.5-10.1); CARBON DIOXIDE 31 mmol/L (21-32); CHLORIDE 106 mmol/L (98-107); CREATININE 0.8 mg/dL (0.6-1.0); GFR 70.5; GLUCOSE 101 mg/dL (70-99); SODIUM 145 mmol/L (136-145); TOTAL BILIRUBIN 0.2 mg/dL (0.2-1.0); TOTAL PROTEIN 7.1 g/dL (6.4-8.2)
[2019-01-14 08:10] LABS: VAL ACID 19 mcg/mL (50-100)
[2019-01-14 16:07] VITALS: BP 97/60
[2019-01-14] MEDS: AMITRIPTYLINE HCL 10 MG TABLET PO SCH (19:53)
[2019-01-14] MEDS: ATORVASTATIN CALCIUM 10 MG TABLET. PO SCH (19:53)
[2019-01-14] MEDS: traZODone 100 MG TABLET. PO SCH (19:54)
--- NOTE | 2019-01-14 22:52 | PN ---
DATE: 01/12/2019 PSYCHIATRIC PROGRESS NOTE This late entry 01/12/2019 covers elements not covered in my initial note. SUBJECTIVE: I met with the patient in the evening. The patient was quite agitated previous night. During the day on 01/12/2019, she was not agitated, not aggressive, certainly remains confused, disorganized. Speech is word salad. Slept 5-3/4 hours previous night. REVIEW OF SYSTEMS: No CV, , pulmonary, eye, ENT system symptoms on review. Reliability poor. MENTAL STATUS EXAM: Oriented to herself. Insight, judgment, recent and remote memory, attention, concentration, fund of knowledge poor, consistent with her diagnosis mentioned in my initial note. PLAN: No change from initial note. MAN Baldemar MCCAIN MD DR: ERIN/rajesh JOB#: [id number] / [id number]
--- NOTE | 2019-01-15 02:47 | PN ---
DATE: 01/14/2019 SUBJECTIVE: The patient was seen today, met with the staff, chart reviewed. The patient continues to be labile, increased psychomotor activity and constantly complaining about pain. The patient has been compliant with the treatment. Staff reports no major problems today. OBSERVATION: Her vital signs are stable. The patient's sleep and appetite have improved. MEDICATIONS: The patient's current medications include Depakote 125 mg t.i.d., amitriptyline 20 mg at night, Cymbalta 30 mg daily, olanzapine 2.5 mg q. 2 hours p.r.n., trazodone 100 mg at night, Seroquel 150 mg t.i.d., gabapentin 100 mg t.i.d. and lorazepam 0.5 mg q.4 hours p.r.n. The patient is not having any major physical complaints. No side effects. ASSESSMENT: 1. Major neurocognitive disorder, Alzheimer's, vascular with delusions, depression, and behavioral disturbances. 2. Anxiety disorder, unspecified. 3. Impulse control disorder, unspecified. PLAN: To continue with the treatment. OLAMIDE DONOHUE MD DR: ALOK/rajesh JOB#: [id number] / [id number]
[2019-01-15 06:00] VITALS: BP 145/80
[2019-01-15 07:30] LABS: BASO % 1 % (0-3); EOS # 0.3 x10^3/uL (0.0-0.7); EOS % 7 % (0-3); HEMATOCRIT 37.8 % (36.0-47.0); LYMPH # 1.3 x10^3/uL (1.0-4.8); LYMPH % 32 % (24-48); MEAN CORPUSCULAR HEMOGLOBIN 27 pg (25-35); MEAN CORPUSCULAR HGB CONC 32 g/dL (31-37); MEAN CORPUSCULAR VOLUME 84 fL (79-100); MONO # 0.5 x10^3/uL (0.0-1.1); MONO % 13 % (0-9); NEUT # 1.9 x10^3uL (1.8-7.7); NEUT % 47 % (31-73); PLATELET COUNT 422 x10^3/uL (140-400); RED BLOOD COUNT 4.52 x10^6/uL (3.50-5.40); RED CELL DISTRIBUTION WIDTH 17.6 % (11.5-14.5)
[2019-01-15 07:36] LABS: ALBUMIN 2.8 g/dL (3.4-5.0); ALBUMIN/GLOBULIN RATIO 0.7 (1.0-1.7); CALCIUM 9.3 mg/dL (8.5-10.1); CREATININE 0.8 mg/dL (0.6-1.0); GFR 70.5; TOTAL BILIRUBIN 0.2 mg/dL (0.2-1.0)
[2019-01-15] MEDS: GABAPENTIN 100 MG CAPSULE. PO SCH ×3 (08:19→19:46)
[2019-01-15] MEDS: ACETAMINOPHEN 325 MG TABLET PO SCH ×3 (08:19→19:46)
[2019-01-15] MEDS: LACTOBACILLUS RHAMNOSUS GG 1 CAPSULE. PO SCH ×2 (08:19→19:46)
[2019-01-15] MEDS: DIVALPROEX 125 MG CAP.SPRINK PO SCH ×3 (08:19→17:55)
[2019-01-15] MEDS: QUEtiapine 50 MG TABLET. PO SCH ×3 (08:20→19:47)
[2019-01-15] MEDS: DULoxetine HCL 30 MG CAPSULE.DR PO SCH (08:20)
[2019-01-15] MEDS: LORazepam 0.5 MG TABLET PO PRN (10:10)
[2019-01-15 16:18] VITALS: BP 95/65
[2019-01-15] MEDS: AMITRIPTYLINE HCL 10 MG TABLET PO SCH (19:46)
[2019-01-15] MEDS: traZODone 100 MG TABLET. PO SCH (19:46)
[2019-01-15] MEDS: ATORVASTATIN CALCIUM 10 MG TABLET. PO SCH (19:46)
--- NOTE | 2019-01-16 03:02 | PN ---
DATE: 01/15/2019 SUBJECTIVE: The patient was seen today. I met with the staff. Chart reviewed. Staff reports no major problems except resistive to care. The patient has been compliant with the treatment not having any physical problems. OBSERVATION: VITAL SIGNS: Temperature 97.9, blood pressure 145/80, pulse 73, respirations 18, O2 sat 95%. Slept about 8 hours last night. The patient's appetite improved. MEDICATIONS: The patient's current medications include Depakote 125 mg t.i.d., amitriptyline 20 mg at night, Cymbalta 30 mg daily, olanzapine 2.5 mg q. 2 hours p.r.n., trazodone 100 mg at night, Seroquel 150 mg t.i.d., gabapentin 100 mg t.i.d., lorazepam 0.5 mg q. 4 hours p.r.n. ASSESSMENT: Major neurocognitive disorder, Alzheimer's, vascular with delusions. PLAN: To continue with the treatment. The patient is planned for discharge sometime this week if he continues to show improvement. OLAMIDE DONOHUE MD DR: ALOK/rajesh JOB#: [id number] / [id number]
[2019-01-16 06:20] VITALS: BP 136/78
[2019-01-16] MEDS: GABAPENTIN 100 MG CAPSULE. PO SCH ×3 (09:21→20:25)
[2019-01-16] MEDS: DULoxetine HCL 30 MG CAPSULE.DR PO SCH (09:21)
[2019-01-16] MEDS: LACTOBACILLUS RHAMNOSUS GG 1 CAPSULE. PO SCH ×2 (09:21→20:24)
[2019-01-16] MEDS: QUEtiapine 50 MG TABLET. PO SCH ×3 (09:21→20:25)
[2019-01-16] MEDS: ACETAMINOPHEN 325 MG TABLET PO SCH ×3 (09:21→20:24)
[2019-01-16] MEDS: DIVALPROEX 125 MG CAP.SPRINK PO SCH ×3 (09:21→17:00)
[2019-01-16] MEDS: LORazepam 0.5 MG TABLET PO PRN (11:56)
[2019-01-16 16:08] VITALS: BP 98/59
[2019-01-16] MEDS: ATORVASTATIN CALCIUM 10 MG TABLET. PO SCH (20:24)
[2019-01-16] MEDS: traZODone 100 MG TABLET. PO SCH (20:24)
[2019-01-16] MEDS: AMITRIPTYLINE HCL 10 MG TABLET PO SCH (20:24)
--- NOTE | 2019-01-17 01:13 | PN ---
DATE: 01/16/2019 SUBJECTIVE: The patient was seen today, met with the staff, chart reviewed. The patient continued to have problems with anxiety, difficult to redirect and also at times, resistive to care. OBSERVATION: VITAL SIGNS: Temperature 97.6, blood pressure 98/59, pulse 76, respirations 20, O2 sat 94%. The patient's appetite is fair. The patient is currently not exhibiting any major medical issues. MEDICATIONS: The patient's current medications include Depakote 125 mg t.i.d., amitriptyline 20 mg at night, Cymbalta 30 mg daily, olanzapine 2.5 mg q. 2 hours p.r.n., trazodone 100 mg at night, Seroquel 150 t.i.d., gabapentin 100 mg t.i.d., lorazepam 0.5 mg q. 4 hours p.r.n. ASSESSMENT: Major neurocognitive disorder, Alzheimer's, vascular with delusions. PLAN: To continue with the treatment. OLAMIDE DONOHUE MD DR: ALOK/rajesh JOB#: [id number] / [id number]
[2019-01-17] MEDS: DIVALPROEX 125 MG CAP.SPRINK PO SCH ×3 (08:03→16:50)
[2019-01-17] MEDS: ACETAMINOPHEN 325 MG TABLET PO SCH ×3 (08:04→19:52)
[2019-01-17] MEDS: QUEtiapine 50 MG TABLET. PO SCH ×3 (08:04→19:53)
[2019-01-17] MEDS: DULoxetine HCL 30 MG CAPSULE.DR PO SCH (08:04)
[2019-01-17] MEDS: GABAPENTIN 100 MG CAPSULE. PO SCH ×3 (08:04→19:54)
[2019-01-17] MEDS: LACTOBACILLUS RHAMNOSUS GG 1 CAPSULE. PO SCH ×2 (08:04→19:52)
[2019-01-17 09:00] VITALS: BP 98/59
[2019-01-17] MEDS: LORazepam 0.5 MG TABLET PO PRN (10:09)
[2019-01-17 16:59] VITALS: BP 93/61
[2019-01-17] MEDS: ATORVASTATIN CALCIUM 10 MG TABLET. PO SCH (19:52)
[2019-01-17] MEDS: traZODone 100 MG TABLET. PO SCH (19:52)
[2019-01-17] MEDS: AMITRIPTYLINE HCL 10 MG TABLET PO SCH (19:53)
[2019-01-18] MEDS: DIVALPROEX 125 MG CAP.SPRINK PO SCH ×3 (08:08→18:05)
[2019-01-18] MEDS: DULoxetine HCL 30 MG CAPSULE.DR PO SCH (08:08)
[2019-01-18] MEDS: ACETAMINOPHEN 325 MG TABLET PO SCH ×3 (08:08→19:45)
[2019-01-18] MEDS: LACTOBACILLUS RHAMNOSUS GG 1 CAPSULE. PO SCH ×2 (08:08→19:45)
[2019-01-18] MEDS: QUEtiapine 50 MG TABLET. PO SCH ×3 (08:08→19:45)
[2019-01-18] MEDS: GABAPENTIN 100 MG CAPSULE. PO SCH ×3 (08:10→19:46)
[2019-01-18 08:45] VITALS: BP 93/61
[2019-01-18 16:26] VITALS: BP 121/70
[2019-01-18] MEDS: AMITRIPTYLINE HCL 10 MG TABLET PO SCH (19:45)
[2019-01-18] MEDS: traZODone 100 MG TABLET. PO SCH (19:45)
[2019-01-18] MEDS: ATORVASTATIN CALCIUM 10 MG TABLET. PO SCH (19:45)
--- NOTE | 2019-01-18 23:44 | PN ---
DATE: 01/18/2019 SUBJECTIVE: The patient was seen today, met with the staff, chart reviewed. The patient continues to show improvement. Staff reports no major behavior problems. The patient has had episodes where she becomes very aggressive, screaming, and also kicking and hitting staff. OBSERVATION: VITAL SIGNS: Temperature 97.4, blood pressure 121/70, pulse 85, respirations 18, O2 sat 97%. The patient's appetite and sleep have improved. MEDICATIONS: The patient's current medications include Depakote 125 mg t.i.d., amitriptyline 20 mg at night, Cymbalta 30 mg daily, olanzapine 2.5 mg q. 2 hours p.r.n., trazodone 100 mg at night, Seroquel 150 mg t.i.d., gabapentin 100 mg t.i.d., and lorazepam 0.5 mg q. 4 hours p.r.n. The patient is not exhibiting any side effects, no major medical issues. ASSESSMENT: Major neurocognitive disorder, Alzheimer, vascular with delusions. PLAN: To continue with the treatment. OLAMIDE DONOHUE MD DR: ALOK/rajesh JOB#: [id number] / [id number]
[2019-01-19 05:57] VITALS: BP 120/76
[2019-01-19] MEDS: LACTOBACILLUS RHAMNOSUS GG 1 CAPSULE. PO SCH ×2 (07:45→19:22)
[2019-01-19] MEDS: QUEtiapine 50 MG TABLET. PO SCH ×3 (07:45→19:23)
[2019-01-19] MEDS: DIVALPROEX 125 MG CAP.SPRINK PO SCH ×3 (07:46→17:45)
[2019-01-19] MEDS: ACETAMINOPHEN 325 MG TABLET PO SCH ×3 (07:46→19:23)
[2019-01-19] MEDS: DULoxetine HCL 30 MG CAPSULE.DR PO SCH (07:46)
[2019-01-19] MEDS: GABAPENTIN 100 MG CAPSULE. PO SCH ×3 (07:47→19:22)
[2019-01-19 16:12] VITALS: BP 105/59
[2019-01-19] MEDS: traZODone 100 MG TABLET. PO SCH (19:22)
[2019-01-19] MEDS: ATORVASTATIN CALCIUM 10 MG TABLET. PO SCH (19:22)
[2019-01-19] MEDS: AMITRIPTYLINE HCL 10 MG TABLET PO SCH (19:22)
--- NOTE | 2019-01-19 23:03 | PN ---
DATE: 01/19/2019 SUBJECTIVE: The patient was seen today, met with the staff, chart reviewed. Staff reports no major problems. The patient is much calmer, still difficult to direct, needing assistance with ADLs. OBSERVATION: VITAL SIGNS: Temperature 97.4, blood pressure 120/76, pulse 73, respirations 20, O2 sat 97%. Slept about 7-1/2 hours last night. The patient's appetite improved. MEDICATIONS: The patient's current medications include Depakote 125 mg t.i.d., amitriptyline 20 mg at night, Cymbalta 30 mg daily, olanzapine 2.5 mg q. 2 hours p.r.n., trazodone 100 mg at night, Seroquel 150 mg t.i.d., gabapentin 100 mg t.i.d., lorazepam 0.5 mg q.4 hours p.r.n. The patient has no major physical complaints. No side effects. ASSESSMENT: Major neurocognitive disorder, Alzheimer's, vascular with delusions. PLAN: To continue with the treatment. OLAMIDE DONOHUE MD DR: ALOK/rajesh JOB#: [id number] / [id number]
[2019-01-20 05:48] VITALS: BP 107/66
[2019-01-20] MEDS: DIVALPROEX 125 MG CAP.SPRINK PO SCH ×3 (07:25→17:52)
[2019-01-20] MEDS: QUEtiapine 50 MG TABLET. PO SCH ×3 (07:25→19:32)
[2019-01-20] MEDS: LACTOBACILLUS RHAMNOSUS GG 1 CAPSULE. PO SCH ×2 (07:25→19:31)
[2019-01-20] MEDS: ACETAMINOPHEN 325 MG TABLET PO SCH ×3 (07:26→19:32)
[2019-01-20] MEDS: DULoxetine HCL 30 MG CAPSULE.DR PO SCH (07:26)
[2019-01-20] MEDS: GABAPENTIN 100 MG CAPSULE. PO SCH ×3 (07:27→19:32)
[2019-01-20 16:17] VITALS: BP 100/60
--- NOTE | 2019-01-20 16:28 | PN ---
DATE: 01/20/2019 SUBJECTIVE: The patient was seen today, met with the staff, chart reviewed. The patient apparently has shown some improvement, continues to have problems, needing assistance with ADLs. OBSERVATION: VITAL SIGNS: Temperature 96.6, blood pressure 107/66, pulse 74, respirations 20, O2 sat 96%. Slept about 7 hours last night. CURRENT MEDICATIONS: The patient's current medications include Depakote 125 mg t.i.d., amitriptyline at night, Cymbalta 30 mg daily, olanzapine 2.5 mg q.2 hours p.r.n., trazodone 100 mg at night and Seroquel 150 mg t.i.d. and gabapentin 100 mg t.i.d., lorazepam 0.5 mg q.4 hours p.r.n. The patient is not exhibiting any side effects. No recent falls. ASSESSMENT: Major neurocognitive disorder, Alzheimer's, vascular with delusions and behavior problems. OLAMIDE DONOHUE MD DR: ALOK/rajesh JOB#: [id number] / [id number]
[2019-01-20] MEDS: AMITRIPTYLINE HCL 10 MG TABLET PO SCH (19:32)
[2019-01-20] MEDS: traZODone 100 MG TABLET. PO SCH (19:32)
[2019-01-20] MEDS: ATORVASTATIN CALCIUM 10 MG TABLET. PO SCH (19:32)
[2019-01-21 05:18] VITALS: BP 96/62
[2019-01-21] MEDS: QUEtiapine 50 MG TABLET. PO SCH ×3 (07:28→20:42)
[2019-01-21] MEDS: DULoxetine HCL 30 MG CAPSULE.DR PO SCH (07:28)
[2019-01-21] MEDS: DIVALPROEX 125 MG CAP.SPRINK PO SCH ×3 (07:28→17:00)
[2019-01-21] MEDS: ACETAMINOPHEN 325 MG TABLET PO SCH ×3 (07:28→20:42)
[2019-01-21] MEDS: LACTOBACILLUS RHAMNOSUS GG 1 CAPSULE. PO SCH ×2 (07:28→20:42)
[2019-01-21] MEDS: GABAPENTIN 100 MG CAPSULE. PO SCH ×3 (07:30→20:42)
[2019-01-21 15:42] VITALS: BP 130/73
[2019-01-21] MEDS: AMITRIPTYLINE HCL 10 MG TABLET PO SCH (20:42)
[2019-01-21] MEDS: ATORVASTATIN CALCIUM 10 MG TABLET. PO SCH (20:43)
[2019-01-21] MEDS: traZODone 100 MG TABLET. PO SCH (20:43)
--- NOTE | 2019-01-21 22:32 | PDOC ---
Exam Note: Yoel Note: Please also refer to the separate dictated note~for this date of service dictated separately.~Patient seen individually. Discussed the patient with Nursing staff reviewed the chart.~Reviewed interim history and current functioning. Reviewed vital signs,~Labs/ Radiology~and current medications noted below. Continue current treatment with the changes noted in the dictated addendum note Assessment: Vital Signs: Vital Signs Date Time Temp Pulse Resp B/P (MAP) Pulse Ox O2 Delivery O2 Flow Rate FiO2 01/21/19 15:42 97.8 68 18 130/73 (92) 96 Room Air I&O Intake and Output 01/21/19 07:00 Intake Total 1200 ml Balance 1200 ml Intake Oral 1200 ml Current Medications: Meds: Current Medications Acetaminophen (Tylenol) 650 mg PRN Q6HRS PRN PO PAIN / TEMP Last administered on 01/05/19at 13:31; Start 12/27/18 at 14:45; Stop 01/05/19 at 14:51; Status DC Multi-Ingredient Ointment (Analgesic [place]) 1 halle PRN QID PRN TP MUSCLE PAIN; Start 12/27/18 at 14:45 Al Hydroxide/Mg Hydroxide (Mylanta Plus Xs) 15 ml PRN AFTMEALHC PRN PO DYSPEPSIA; Start 12/27/18 at 14:45; Status Cancel Magnesium Hydroxide (Milk Of Magnesia) 2,400 mg PRN QHS PRN PO CONSTIPATION; Start 12/27/18 at 14:45; Status Cancel Acetaminophen (Tylenol) 650 mg PRN Q6HRS PRN PO PAIN; Start 12/27/18 at 15:00; Status UNV Lorazepam (Ativan) 0.5 mg PRN Q4HRS PRN PO AGITATION Last administered on at 10:09; Start 12/27/18 at 15:00 Al Hydroxide/Mg Hydroxide (Mylanta Plus Xs) 30 ml PRN Q4HRS PRN PO DYSPEPSIA; Start 12/27/18 at 15:00 Acetaminophen/ Codeine Phosphate (Tylenol #3) 1 tab PRN Q6HRS PRN PO PAIN Last administered on 01/08/19at 01:27; Start 12/27/18 at 15:15 Atorvastatin Calcium (Lipitor) 10 mg QHS PO Last administered on 01/21/19at 20: 43; Start 12/27/18 at 21:00 Gabapentin (Neurontin) 100 mg TID PO Last administered on 01/21/19 20:42; Start 12/27/18 at 21:00 Magnesium Hydroxide (Milk Of Magnesia) 2,400 mg PRN Q6HRS PRN PO CONSTIPATION; Start 12/27/18 at 15:15 Memantine (Namenda) 10 mg BID PO Last administered on 12/31/18 19:53; Start at 21:00; Stop 12/31/18 at 21:12; Status DC Polyethylene Glycol (miraLAX) 17 gm PRN DAILY PRN PO CONSTIPATION; Start at 15:15 Quetiapine Fumarate (SEROquel) 150 mg TID PO Last administered on 01/21/19 20: 42; Start 12/27/18 at 21:00 Trazodone HCl (Desyrel) 50 mg BID PO Last administered on 12/28/18 08:27; Start 12/27/18 at 21:00; Stop 12/28/18 at 17:59; Status DC Cephalexin HCl (Keflex) 500 mg TID PO Last administered on 12/29/18 15:33; Start 12/27/18 at 21:00; Stop 12/29/18 at 17:51; Status DC Sertraline HCl (Zoloft) 25 mg DAILY PO Last administered on 12/31/18 07:30; Start 12/29/18 at 09:00; Stop 12/31/18 at 21:12; Status DC Trazodone HCl (Desyrel) 100 mg QHS PO Last administered on 01/21/19 20:43; Start 12/28/18 at 21:00 Trazodone HCl (Desyrel) 100 mg PRN QHS PRN PO INSOMNIA Last administered on 01/11 21:39; Start 12/28/18 at 18:00 Mirtazapine (Remeron) 7.5 mg QHS PO Last administered on 12/31/18 19:53; Start 12/29/18 at 21:00; Stop 12/31/18 at 21:12; Status DC Olanzapine (ZyPREXA ZYDIS) 2.5 mg PRN Q2HR PRN PO PSYCHOSIS Last administered on 01/17/19 10:09; Start 12/30/18 at 11:15 Divalproex Sodium (Depakote Sprinkles) 125 mg BID@0900,1700 PO Last administered on 01/10/19 16:35; Start 12/31/18 at 09:00; Stop 01/10/19 at 18:12; Status DC Mirtazapine (Remeron) 15 mg QHS PO Last administered on 01/06/19 19:36; Start 12/31/18 at 21:30; Stop 01/06/19 at 23:12; Status DC Sertraline HCl (Zoloft) 50 mg DAILY PO Last administered on 01/03/19 07:52; Start 01/01/19 at 09:00; Stop 01/03/19 at 23:50; Status DC Doxycycline Hyclate (Vibra-Tab) 100 mg BID PO Last administered on 01/11/19 08: 07; Start 01/01/19 at 21:00; Stop 01/11/19 at 20:00; Status DC Bacitracin (Bacitracin Topical Pkt) 1 pkt HS TP Last administered on 01/10/19 21:00; Start 01/01/19 at 21:00; Stop 01/10/19 at 22:53; Status DC Sertraline HCl (Zoloft) 75 mg DAILY PO Last administered on 01/05/19 07:36; Start 01/04/19 at 09:00; Stop 01/05/19 at 16:31; Status DC Lactobacillus Rhamnosus (Culturelle) 1 cap BID PO Last administered on 20:42; Start 01/03/19 at 21:00 Acetaminophen (Tylenol) 650 mg TID PO Last administered on 01/21/19 20:42; Start 01/05/19 at 21:00 Duloxetine HCl (Cymbalta) 30 mg DAILY PO Last administered on 01/21/19 07:28; Start 01/06/19 at 09:00 Trazodone HCl (Desyrel) 100 mg 1X ONCE PO Last administered on 01/06/19 19:39 ; Start 01/06/19 at 21:00; Stop 01/06/19 at 21:01; Status DC Amitriptyline HCl (Elavil) 10 mg QHS PO Last administered on 01/08/19at 20:10; Start 01/07/19 at 21:00; Stop 01/09/19 at 19:09; Status DC Amitriptyline HCl (Elavil) 20 mg QHS PO Last administered on 01/21/19at 20:42; Start 01/09/19 at 21:00 Divalproex Sodium (Depakote Sprinkles) 125 mg 0900,1300,1700 PO Last administered on 01/21/19at 17:00; Start 01/11/19 at 09:00 Bacitracin (Bacitracin Topical Pkt) 1 pkt PRN BID PRN TP PUBIC AREA PELICULITIS ; Start 01/11/19 at 21:00 Active Scripts Active Reported Cephalexin 500 Mg Capsule 500 Mg PO TID Gabapentin 600 Mg Tablet 100 Mg PO TID Seroquel (Quetiapine Fumarate) 100 Mg Tablet 150 Mg PO TID Atorvastatin Calcium 10 Mg Tablet 10 Mg PO QHS Namenda (Memantine Hcl) 10 Mg Tablet 10 Mg PO BID Trazodone Hcl 50 Mg Tablet 50 Mg PO BID Miralax (Polyethylene Glycol 3350) 17 Gm Powd.pack 17 Gm PO PRN DAILY PRN Tylenol With Codeine #3 Tablet (Acetaminophen With Codeine) 1 Each Tablet 1 Each PO PRN Q6HRS PRN Milk Of Magnesia (Magnesium Hydroxide) 2,400 Mg/10 Ml Oral.susp 30 Ml PO PRN Q6HRS PRN Tylenol (Acetaminophen) 325 Mg Tablet 650 Mg PO PRN Q6HRS PRN Ativan (Lorazepam) 1 Mg Tablet 0.5 Mg PO PRN Q4HRS PRN Mag-Al Plus Xs Suspension (Mag Hydrox/Al Hydrox/Simeth) 30 Ml Oral.susp 30 Ml PO PRN Q4HRS PRN I have reviewed the current psychotropics carefully including drug interactions. Risk benefit ratio favors no change other than as noted in my dictated progress note. Diagnosis: Problems: (1) Dementia (2) Behavior problem (3) Medical clearance for psychiatric admission (4) Anxiety disorder (5) Dementia in Alzheimer's disease with delusions (6) Dementia in Alzheimer's disease with depression (7) Dementia, vascular, with delusions (8) Dementia, vascular, with depression (9) Impulse control disorder NAJMA MCCAIN MD Jan 21, 2019 22:32
--- NOTE | 2019-01-21 23:27 | PN ---
DATE: 01/21/2019 SUBJECTIVE: The patient was seen today, met with the staff, chart reviewed. The patient has shown some improvement, still pacing. She is on wheelchair, resistive to care mostly when she has to shower. OBSERVATION: VITAL SIGNS: Temperature 96.9, blood pressure 96/62, pulse 61, respirations 17, O2 sat 90%. Slept about 5 hours last night. The patient is not presenting with any major medical issues, no falls recently. MEDICATIONS: Her current medications include Depakote 125 mg t.i.d., amitriptyline at night, Cymbalta 30 mg daily, olanzapine 2.5 mg q. 2 hours p.r.n., trazodone 100 mg at night, Seroquel 150 mg t.i.d., gabapentin 100 mg t.i.d., lorazepam 0.5 mg q. 4 hours p.r.n. ASSESSMENT: Major neurocognitive disorder, Alzheimer, vascular with delusions and behavior problems. PLAN: To continue with the treatment plan. OLAMIDE DONOHUE MD DR: ALOK/rajesh JOB#: [id number] / [id number]
[2019-01-22 06:26] VITALS: BP 114/66
[2019-01-22 07:32] LABS: BASO % 1 % (0-3); EOS # 0.3 x10^3/uL (0.0-0.7); EOS % 6 % (0-3); HEMATOCRIT 37.8 % (36.0-47.0); LYMPH # 1.2 x10^3/uL (1.0-4.8); LYMPH % 29 % (24-48); MEAN CORPUSCULAR HEMOGLOBIN 27 pg (25-35); MEAN CORPUSCULAR HGB CONC 32 g/dL (31-37); MEAN CORPUSCULAR VOLUME 84 fL (79-100); MONO # 0.4 x10^3/uL (0.0-1.1); MONO % 9 % (0-9); NEUT # 2.3 x10^3uL (1.8-7.7); NEUT % 55 % (31-73); PLATELET COUNT 302 x10^3/uL (140-400); RED BLOOD COUNT 4.52 x10^6/uL (3.50-5.40); RED CELL DISTRIBUTION WIDTH 18.2 % (11.5-14.5); WHITE BLOOD COUNT 4.1 x10^3/uL (4.0-11.0)
[2019-01-22] MEDS: QUEtiapine 50 MG TABLET. PO SCH ×3 (07:32→19:47)
[2019-01-22] MEDS: LACTOBACILLUS RHAMNOSUS GG 1 CAPSULE. PO SCH ×2 (07:32→19:51)
[2019-01-22] MEDS: ACETAMINOPHEN 325 MG TABLET PO SCH ×3 (07:32→19:47)
[2019-01-22] MEDS: DIVALPROEX 125 MG CAP.SPRINK PO SCH ×3 (07:33→15:48)
[2019-01-22] MEDS: GABAPENTIN 100 MG CAPSULE. PO SCH ×3 (07:36→19:48)
[2019-01-22 07:54] LABS: ALBUMIN/GLOBULIN RATIO 0.8 (1.0-1.7); CALCIUM 9.1 mg/dL (8.5-10.1); CREATININE 0.8 mg/dL (0.6-1.0); GFR 70.5; TOTAL BILIRUBIN 0.2 mg/dL (0.2-1.0)
[2019-01-22] MEDS: DULoxetine HCL 30 MG CAPSULE.DR PO SCH (08:05)
[2019-01-22 17:35] VITALS: BP 91/73
[2019-01-22] MEDS: AMITRIPTYLINE HCL 10 MG TABLET PO SCH (19:46)
[2019-01-22] MEDS: ATORVASTATIN CALCIUM 10 MG TABLET. PO SCH (19:46)
[2019-01-22] MEDS: traZODone 100 MG TABLET. PO SCH (19:46)
--- NOTE | 2019-01-22 22:14 | PDOC ---
Exam Note: Yoel Note: "This is a late entry for 01/21/19. The template note for 01/21/19 was completed in error and should be disregarded." Please also refer to the separate dictated note~for this date of service dictated separately.~Patient seen individually. Discussed the patient with Nursing staff reviewed the chart.~ Reviewed interim history and current functioning. Reviewed vital signs,~Labs/ Radiology~and current medications noted below. Continue current treatment with the changes noted in the dictated addendum note Assessment: Vital Signs: Vital Signs Date Time Temp Pulse Resp B/P (MAP) Pulse Ox O2 Delivery O2 Flow Rate FiO2 01/22/19 17:35 97.9 77 16 91/73 (79) 99 01/21/19 15:42 Room Air I&O Intake and Output 01/22/19 07:00 Intake Total 660 ml Balance 660 ml Intake Oral 660 ml Labs: Laboratory Tests Test 01/22/19 07:12 White Blood Count 4.1 x10^3/uL (4.0-11.0) Red Blood Count 4.52 x10^6/uL (3.50-5.40) Hemoglobin 12.0 g/dL (12.0-15.5) Hematocrit 37.8 % (36.0-47.0) Mean Corpuscular Volume 84 fL (79-100) Mean Corpuscular Hemoglobin 27 pg (25-35) Mean Corpuscular Hemoglobin Concent 32 g/dL (31-37) Red Cell Distribution Width 18.2 % (11.5-14.5) H Platelet Count 302 x10^3/uL (140-400) Neutrophils (%) (Auto) 55 % (31-73) Lymphocytes (%) (Auto) 29 % (24-48) Monocytes (%) (Auto) 9 % (0-9) Eosinophils (%) (Auto) 6 % (0-3) H Basophils (%) (Auto) 1 % (0-3) Neutrophils # (Auto) 2.3 x10^3uL (1.8-7.7) Lymphocytes # (Auto) 1.2 x10^3/uL (1.0-4.8) Monocytes # (Auto) 0.4 x10^3/uL (0.0-1.1) Eosinophils # (Auto) 0.3 x10^3/uL (0.0-0.7) Basophils # (Auto) 0.0 x10^3/uL (0.0-0.2) Sodium Level 144 mmol/L (136-145) Potassium Level 4.0 mmol/L (3.5-5.1) Chloride Level 106 mmol/L (98-107) Carbon Dioxide Level 32 mmol/L (21-32) Anion Gap 6 (6-14) Blood Urea Nitrogen 15 mg/dL (7-20) Creatinine 0.8 mg/dL (0.6-1.0) Estimated GFR (Cockcroft-Gault) 70.5 BUN/Creatinine Ratio 19 (6-20) Glucose Level 91 mg/dL (70-99) Calcium Level 9.1 mg/dL (8.5-10.1) Total Bilirubin 0.2 mg/dL (0.2-1.0) Aspartate Amino Transferase (AST) 10 U/L (15-37) L Alanine Aminotransferase (ALT) 14 U/L (14-59) Alkaline Phosphatase 67 U/L (46-116) Total Protein 7.0 g/dL (6.4-8.2) Albumin 3.0 g/dL (3.4-5.0) L Albumin/Globulin Ratio 0.8 (1.0-1.7) L Current Medications: Meds: Current Medications Acetaminophen (Tylenol) 650 mg PRN Q6HRS PRN PO PAIN / TEMP Last administered on 01/05/19at 13:31; Start 12/27/18 at 14:45; Stop 01/05/19 at 14:51; Status DC Multi-Ingredient Ointment (Analgesic [place]) 1 halle PRN QID PRN TP MUSCLE PAIN; Start 12/27/18 at 14:45 Al Hydroxide/Mg Hydroxide (Mylanta Plus Xs) 15 ml PRN AFTMEALHC PRN PO DYSPEPSIA; Start 12/27/18 at 14:45; Status Cancel Magnesium Hydroxide (Milk Of Magnesia) 2,400 mg PRN QHS PRN PO CONSTIPATION; Start 12/27/18 at 14:45; Status Cancel Acetaminophen (Tylenol) 650 mg PRN Q6HRS PRN PO PAIN; Start 12/27/18 at 15:00; Status UNV Lorazepam (Ativan) 0.5 mg PRN Q4HRS PRN PO AGITATION Last administered on 10:09; Start 12/27/18 at 15:00 Al Hydroxide/Mg Hydroxide (Mylanta Plus Xs) 30 ml PRN Q4HRS PRN PO DYSPEPSIA; Start 12/27/18 at 15:00 Acetaminophen/ Codeine Phosphate (Tylenol #3) 1 tab PRN Q6HRS PRN PO PAIN Last administered on 01/08/19 01:27; Start 12/27/18 at 15:15 Atorvastatin Calcium (Lipitor) 10 mg QHS PO Last administered on 01/22/19 19: 46; Start 12/27/18 at 21:00 Gabapentin (Neurontin) 100 mg TID PO Last administered on 01/22/19 19:48; Start 12/27/18 at 21:00 Magnesium Hydroxide (Milk Of Magnesia) 2,400 mg PRN Q6HRS PRN PO CONSTIPATION; Start 12/27/18 at 15:15 Memantine (Namenda) 10 mg BID PO Last administered on 12/31/18 19:53; Start at 21:00; Stop 12/31/18 at 21:12; Status DC Polyethylene Glycol (miraLAX) 17 gm PRN DAILY PRN PO CONSTIPATION; Start at 15:15 Quetiapine Fumarate (SEROquel) 150 mg TID PO Last administered on 01/22/19 19: 47; Start 12/27/18 at 21:00 Trazodone HCl (Desyrel) 50 mg BID PO Last administered on 12/28/18 08:27; Start 12/27/18 at 21:00; Stop 12/28/18 at 17:59; Status DC Cephalexin HCl (Keflex) 500 mg TID PO Last administered on 12/29/18 15:33; Start 12/27/18 at 21:00; Stop 12/29/18 at 17:51; Status DC Sertraline HCl (Zoloft) 25 mg DAILY PO Last administered on 12/31/18 07:30; Start 12/29/18 at 09:00; Stop 12/31/18 at 21:12; Status DC Trazodone HCl (Desyrel) 100 mg QHS PO Last administered on 01/22/19 19:46; Start 12/28/18 at 21:00 Trazodone HCl (Desyrel) 100 mg PRN QHS PRN PO INSOMNIA Last administered on 01/11 21:39; Start 12/28/18 at 18:00 Mirtazapine (Remeron) 7.5 mg QHS PO Last administered on 12/31/18 19:53; Start 12/29/18 at 21:00; Stop 12/31/18 at 21:12; Status DC Olanzapine (ZyPREXA ZYDIS) 2.5 mg PRN Q2HR PRN PO PSYCHOSIS Last administered on 01/17/19 10:09; Start 12/30/18 at 11:15 Divalproex Sodium (Depakote Sprinkles) 125 mg BID@0900,1700 PO Last administered on 01/10/19 16:35; Start 12/31/18 at 09:00; Stop 01/10/19 at 18:12; Status DC Mirtazapine (Remeron) 15 mg QHS PO Last administered on 01/06/19 19:36; Start 12/31/18 at 21:30; Stop 01/06/19 at 23:12; Status DC Sertraline HCl (Zoloft) 50 mg DAILY PO Last administered on 01/03/19 07:52; Start 01/01/19 at 09:00; Stop 01/03/19 at 23:50; Status DC Doxycycline Hyclate (Vibra-Tab) 100 mg BID PO Last administered on 01/11/19 08: 07; Start 01/01/19 at 21:00; Stop 01/11/19 at 20:00; Status DC Bacitracin (Bacitracin Topical Pkt) 1 pkt HS TP Last administered on 01/10/19 21:00; Start 01/01/19 at 21:00; Stop 01/10/19 at 22:53; Status DC Sertraline HCl (Zoloft) 75 mg DAILY PO Last administered on 01/05/19 07:36; Start 01/04/19 at 09:00; Stop 01/05/19 at 16:31; Status DC Lactobacillus Rhamnosus (Culturelle) 1 cap BID PO Last administered on 19:51; Start 01/03/19 at 21:00 Acetaminophen (Tylenol) 650 mg TID PO Last administered on 01/22/19at 19:47; Start 01/05/19 at 21:00 Duloxetine HCl (Cymbalta) 30 mg DAILY PO Last administered on 01/22/19at 08:05; Start 01/06/19 at 09:00 Trazodone HCl (Desyrel) 100 mg 1X ONCE PO Last administered on 01/06/19 19:39 ; Start 01/06/19 at 21:00; Stop 01/06/19 at 21:01; Status DC Amitriptyline HCl (Elavil) 10 mg QHS PO Last administered on 01/08/19at 20:10; Start 01/07/19 at 21:00; Stop 01/09/19 at 19:09; Status DC Amitriptyline HCl (Elavil) 20 mg QHS PO Last administered on 01/22/19at 19:46; Start 01/09/19 at 21:00 Divalproex Sodium (Depakote Sprinkles) 125 mg 0900,1300,1700 PO Last administered on 01/22/19at 15:48; Start 01/11/19 at 09:00 Bacitracin (Bacitracin Topical Pkt) 1 pkt PRN BID PRN TP PUBIC AREA PELICULITIS ; Start 01/11/19 at 21:00 Active Scripts Active Reported Cephalexin 500 Mg Capsule 500 Mg PO TID Gabapentin 600 Mg Tablet 100 Mg PO TID Seroquel (Quetiapine Fumarate) 100 Mg Tablet 150 Mg PO TID Atorvastatin Calcium 10 Mg Tablet 10 Mg PO QHS Namenda (Memantine Hcl) 10 Mg Tablet 10 Mg PO BID Trazodone Hcl 50 Mg Tablet 50 Mg PO BID Miralax (Polyethylene Glycol 3350) 17 Gm Powd.pack 17 Gm PO PRN DAILY PRN Tylenol With Codeine #3 Tablet (Acetaminophen With Codeine) 1 Each Tablet 1 Each PO PRN Q6HRS PRN Milk Of Magnesia (Magnesium Hydroxide) 2,400 Mg/10 Ml Oral.susp 30 Ml PO PRN Q6HRS PRN Tylenol (Acetaminophen) 325 Mg Tablet 650 Mg PO PRN Q6HRS PRN Ativan (Lorazepam) 1 Mg Tablet 0.5 Mg PO PRN Q4HRS PRN Mag-Al Plus Xs Suspension (Mag Hydrox/Al Hydrox/Simeth) 30 Ml Oral.susp 30 Ml PO PRN Q4HRS PRN I have reviewed the current psychotropics carefully including drug interactions. Risk benefit ratio favors no change other than as noted in my dictated progress note. Diagnosis: Problems: (1) Dementia (2) Behavior problem (3) Medical clearance for psychiatric admission (4) Anxiety disorder (5) Dementia in Alzheimer's disease with delusions (6) Dementia in Alzheimer's disease with depression (7) Dementia, vascular, with delusions (8) Dementia, vascular, with depression (9) Impulse control disorder NAJMA MCCAIN MD Jan 22, 2019 22:14
[2019-01-23 06:19] VITALS: BP 131/74
[2019-01-23] MEDS: LACTOBACILLUS RHAMNOSUS GG 1 CAPSULE. PO SCH ×2 (08:05→19:50)
[2019-01-23] MEDS: QUEtiapine 50 MG TABLET. PO SCH ×3 (08:05→19:50)
[2019-01-23] MEDS: DIVALPROEX 125 MG CAP.SPRINK PO SCH ×3 (08:05→17:03)
[2019-01-23] MEDS: ACETAMINOPHEN 325 MG TABLET PO SCH ×3 (08:05→19:50)
[2019-01-23] MEDS: DULoxetine HCL 30 MG CAPSULE.DR PO SCH (08:05)
[2019-01-23] MEDS: GABAPENTIN 100 MG CAPSULE. PO SCH ×3 (08:06→19:50)
[2019-01-23 16:26] VITALS: BP 95/62
[2019-01-23] MEDS: ATORVASTATIN CALCIUM 10 MG TABLET. PO SCH (19:50)
[2019-01-23] MEDS: AMITRIPTYLINE HCL 10 MG TABLET PO SCH (19:50)
[2019-01-23] MEDS: traZODone 100 MG TABLET. PO SCH (19:50)
--- NOTE | 2019-01-23 20:58 | PN ---
DATE: 01/22/2019 PSYCHIATRIC PROGRESS NOTE This late entry 01/22/2019 covers elements not covered in my initial note. SUBJECTIVE: I met with the patient in the evening and reviewed information from Dr. Randall, who covered for me over the past several days. Overall, the patient remains confused, but less agitated, more redirectable. REVIEW OF SYSTEMS: Ambulation impaired, in wheelchair. No CV, , pulmonary, eye, ENT system symptoms on review. Reliability poor. MENTAL STATUS EXAM: Oriented to herself. Insight, judgment, recent and remote memory, attention, concentration, fund of knowledge poor, consistent with her diagnosis mentioned in my initial note. PLAN: No change from initial note. We will review with social service staff about transitioning back to facility. MAN Baldemar MCCAIN MD DR: ERIN/rajesh JOB#: [id number] / [id number]
--- NOTE | 2019-01-23 22:34 | PDOC ---
Exam Note: Yoel Note: Please also refer to the separate dictated note~for this date of service dictated separately.~Patient seen individually. Discussed the patient with Nursing staff reviewed the chart.~Reviewed interim history and current functioning. Reviewed vital signs,~Labs/ Radiology~and current medications noted below. Continue current treatment with the changes noted in the dictated addendum note Assessment: Vital Signs: Vital Signs Date Time Temp Pulse Resp B/P (MAP) Pulse Ox O2 Delivery O2 Flow Rate FiO2 01/23/19 16:26 97.2 93 22 95/62 (73) 93 Room Air I&O Intake and Output 01/23/19 07:00 Intake Total 840 ml Balance 840 ml Intake Oral 840 ml Current Medications: Meds: Current Medications Acetaminophen (Tylenol) 650 mg PRN Q6HRS PRN PO PAIN / TEMP Last administered on 01/05/19 13:31; Start 12/27/18 at 14:45; Stop 01/05/19 at 14:51; Status DC Multi-Ingredient Ointment (Analgesic [place]) 1 halle PRN QID PRN TP MUSCLE PAIN; Start 12/27/18 at 14:45 Al Hydroxide/Mg Hydroxide (Mylanta Plus Xs) 15 ml PRN AFTMEALHC PRN PO DYSPEPSIA; Start 12/27/18 at 14:45; Status Cancel Magnesium Hydroxide (Milk Of Magnesia) 2,400 mg PRN QHS PRN PO CONSTIPATION; Start 12/27/18 at 14:45; Status Cancel Acetaminophen (Tylenol) 650 mg PRN Q6HRS PRN PO PAIN; Start 12/27/18 at 15:00; Status UNV Lorazepam (Ativan) 0.5 mg PRN Q4HRS PRN PO AGITATION Last administered on at 10:09; Start 12/27/18 at 15:00 Al Hydroxide/Mg Hydroxide (Mylanta Plus Xs) 30 ml PRN Q4HRS PRN PO DYSPEPSIA; Start 12/27/18 at 15:00 Acetaminophen/ Codeine Phosphate (Tylenol #3) 1 tab PRN Q6HRS PRN PO PAIN Last administered on 01/08/19at 01:27; Start 12/27/18 at 15:15 Atorvastatin Calcium (Lipitor) 10 mg QHS PO Last administered on 3/19/19at 19: 50; Start 12/27/18 at 21:00 Gabapentin (Neurontin) 100 mg TID PO Last administered on 01/23/19 19:50; Start 12/27/18 at 21:00 Magnesium Hydroxide (Milk Of Magnesia) 2,400 mg PRN Q6HRS PRN PO CONSTIPATION Last administered on 01/23/19 17:03; Start 12/27/18 at 15:15 Memantine (Namenda) 10 mg BID PO Last administered on 12/31/18 19:53; Start at 21:00; Stop 12/31/18 at 21:12; Status DC Polyethylene Glycol (miraLAX) 17 gm PRN DAILY PRN PO CONSTIPATION; Start at 15:15 Quetiapine Fumarate (SEROquel) 150 mg TID PO Last administered on 01/23/19 19: 50; Start 12/27/18 at 21:00 Trazodone HCl (Desyrel) 50 mg BID PO Last administered on 12/28/18 08:27; Start 12/27/18 at 21:00; Stop 12/28/18 at 17:59; Status DC Cephalexin HCl (Keflex) 500 mg TID PO Last administered on 12/29/18 15:33; Start 12/27/18 at 21:00; Stop 12/29/18 at 17:51; Status DC Sertraline HCl (Zoloft) 25 mg DAILY PO Last administered on 12/31/18 07:30; Start 12/29/18 at 09:00; Stop 12/31/18 at 21:12; Status DC Trazodone HCl (Desyrel) 100 mg QHS PO Last administered on 01/23/19 19:50; Start 12/28/18 at 21:00 Trazodone HCl (Desyrel) 100 mg PRN QHS PRN PO INSOMNIA Last administered on 01/11 21:39; Start 12/28/18 at 18:00 Mirtazapine (Remeron) 7.5 mg QHS PO Last administered on 12/31/18 19:53; Start 12/29/18 at 21:00; Stop 12/31/18 at 21:12; Status DC Olanzapine (ZyPREXA ZYDIS) 2.5 mg PRN Q2HR PRN PO PSYCHOSIS Last administered on 01/17/19 10:09; Start 12/30/18 at 11:15 Divalproex Sodium (Depakote Sprinkles) 125 mg BID@0900,1700 PO Last administered on 01/10/19 16:35; Start 12/31/18 at 09:00; Stop 01/10/19 at 18:12; Status DC Mirtazapine (Remeron) 15 mg QHS PO Last administered on 01/06/19 19:36; Start 12/31/18 at 21:30; Stop 01/06/19 at 23:12; Status DC Sertraline HCl (Zoloft) 50 mg DAILY PO Last administered on 01/03/19 07:52; Start 01/01/19 at 09:00; Stop 01/03/19 at 23:50; Status DC Doxycycline Hyclate (Vibra-Tab) 100 mg BID PO Last administered on 01/11/19 08: 07; Start 01/01/19 at 21:00; Stop 01/11/19 at 20:00; Status DC Bacitracin (Bacitracin Topical Pkt) 1 pkt HS TP Last administered on 01/10/19 21:00; Start 01/01/19 at 21:00; Stop 01/10/19 at 22:53; Status DC Sertraline HCl (Zoloft) 75 mg DAILY PO Last administered on 01/05/19 07:36; Start 01/04/19 at 09:00; Stop 01/05/19 at 16:31; Status DC Lactobacillus Rhamnosus (Culturelle) 1 cap BID PO Last administered on at 19:50; Start 01/03/19 at 21:00 Acetaminophen (Tylenol) 650 mg TID PO Last administered on 01/23/19 19:50; Start 01/05/19 at 21:00 Duloxetine HCl (Cymbalta) 30 mg DAILY PO Last administered on 01/23/19 08:05; Start 01/06/19 at 09:00 Trazodone HCl (Desyrel) 100 mg 1X ONCE PO Last administered on 01/06/19 19:39 ; Start 01/06/19 at 21:00; Stop 01/06/19 at 21:01; Status DC Amitriptyline HCl (Elavil) 10 mg QHS PO Last administered on 01/08/19at 20:10; Start 01/07/19 at 21:00; Stop 01/09/19 at 19:09; Status DC Amitriptyline HCl (Elavil) 20 mg QHS PO Last administered on 01/23/19at 19:50; Start 01/09/19 at 21:00 Divalproex Sodium (Depakote Sprinkles) 125 mg 0900,1300,1700 PO Last administered on 01/23/19at 17:03; Start 01/11/19 at 09:00 Bacitracin (Bacitracin Topical Pkt) 1 pkt PRN BID PRN TP PUBIC AREA PELICULITIS ; Start 01/11/19 at 21:00 Active Scripts Active Reported Cephalexin 500 Mg Capsule 500 Mg PO TID Gabapentin 600 Mg Tablet 100 Mg PO TID Seroquel (Quetiapine Fumarate) 100 Mg Tablet 150 Mg PO TID Atorvastatin Calcium 10 Mg Tablet 10 Mg PO QHS Namenda (Memantine Hcl) 10 Mg Tablet 10 Mg PO BID Trazodone Hcl 50 Mg Tablet 50 Mg PO BID Miralax (Polyethylene Glycol 3350) 17 Gm Powd.pack 17 Gm PO PRN DAILY PRN Tylenol With Codeine #3 Tablet (Acetaminophen With Codeine) 1 Each Tablet 1 Each PO PRN Q6HRS PRN Milk Of Magnesia (Magnesium Hydroxide) 2,400 Mg/10 Ml Oral.susp 30 Ml PO PRN Q6HRS PRN Tylenol (Acetaminophen) 325 Mg Tablet 650 Mg PO PRN Q6HRS PRN Ativan (Lorazepam) 1 Mg Tablet 0.5 Mg PO PRN Q4HRS PRN Mag-Al Plus Xs Suspension (Mag Hydrox/Al Hydrox/Simeth) 30 Ml Oral.susp 30 Ml PO PRN Q4HRS PRN I have reviewed the current psychotropics carefully including drug interactions. Risk benefit ratio favors no change other than as noted in my dictated progress note. Diagnosis: Problems: (1) Dementia (2) Behavior problem (3) Medical clearance for psychiatric admission (4) Anxiety disorder (5) Dementia in Alzheimer's disease with delusions (6) Dementia in Alzheimer's disease with depression (7) Dementia, vascular, with delusions (8) Dementia, vascular, with depression (9) Impulse control disorder NAJMA MCCAIN MD Jan 23, 2019 22:34
[2019-01-23] MEDS ORDERED: AMIT10TA PO (23:44)
[2019-01-23] MEDS ORDERED: BACI1PAC4 TP (23:55)
[2019-01-23] MEDS ORDERED: DIVA125C2 PO (23:56)
[2019-01-23] MEDS ORDERED: DULO30CA2 PO (23:57)
[2019-01-23] MEDS ORDERED: LACT1CAP21 PO (23:58)
[2019-01-23] MEDS ORDERED: METH29OI TP (23:59)
[2019-01-24] MEDS ORDERED: OLAN5TAB5 PO
[2019-01-24] MEDS ORDERED: TRAZ-86 PO ×2 (00:01→00:02)
[2019-01-24 06:07] VITALS: BP 126/79
[2019-01-24] MEDS: QUEtiapine 50 MG TABLET. PO SCH (08:08)
[2019-01-24] MEDS: DIVALPROEX 125 MG CAP.SPRINK PO SCH (08:08)
[2019-01-24] MEDS: LACTOBACILLUS RHAMNOSUS GG 1 CAPSULE. PO SCH (08:08)
[2019-01-24] MEDS: ACETAMINOPHEN 325 MG TABLET PO SCH (08:08)
[2019-01-24] MEDS: GABAPENTIN 100 MG CAPSULE. PO SCH (08:10)
[2019-01-24] MEDS: DULoxetine HCL 30 MG CAPSULE.DR PO SCH (08:12)
--- NOTE | 2019-01-24 18:58 | DS ---
DATE OF DISCHARGE: 01/24/2019 DISCHARGE SUMMARY/PSYCHIATRIC PROGRESS NOTE REASON FOR ADMISSION: Please refer to the admission history for details. Briefly, the patient is a 73-year-old female referred to us from [facility] by her primary care physician on account of worsening confusion, agitation within the context of his significant dementia. Reportedly, she was "crowing" like a chicken. Mood was labile, screaming, tearful, kicking, hitting, slapping when toileting. She had failed outpatient psychiatric interventions. SIGNIFICANT FINDINGS AND CLINICAL COURSE: Following admission, the patient was seen daily individually by myself from a psychiatric standpoint, medical followup with Dr. Cooney. The patient was extremely confused, anxious, agitated, labile initially. Adjustments were made in her psychotropics and she seemed to respond to a combination of Seroquel 150 mg t.i.d.; Cymbalta 30 mg a day; Depakote Sprinkles 125 mg 3 times a day; amitriptyline 20 mg at bedtime for her insomnia, anxiety; Zyprexa p.r.n.; trazodone 100 mg at bedtime, march repeat x 1 for insomnia and Ativan 0.5 mg q. 4 hours p.r.n. anxiety. Gradually mood appeared to improve. CONDITION AT DISCHARGE: Improved. REVIEW OF SYSTEMS: Prior to discharge, 01/24/2019, ambulation impaired, in wheelchair. No CV, , pulmonary, eye, ENT system symptoms on review. Reliability poor. MENTAL STATUS EXAM: Oriented to herself. Insight, judgment, recent and remote memory, attention, concentration, fund of knowledge poor, consistent with her diagnosis. FINAL DIAGNOSES: Major neurocognitive disorder, Alzheimer, vascular with delusion, depression, behavioral disturbance; anxiety disorder, unspecified; impulse control disorder, unspecified. DISCHARGE MEDICATIONS: Please refer to the MRAD. DISCHARGE INSTRUCTIONS: Outpatient psychiatric and medical followup at the intermediate. Time for discharge day management greater than 30 minutes. MAN Baldemar MCCAIN MD DR: ERIN/rajesh JOB#: [id number] / [id number]
--- NOTE | 2019-01-24 19:14 | PN ---
DATE: 01/23/2019 PSYCHIATRIC PROGRESS NOTE This late entry 01/23/2019 covers elements not covered in my initial note. SUBJECTIVE: I met with the patient in the evening. The patient slept 7 hours previous night. She remains confused, speech is word salad, disorganized, but not aggressive. REVIEW OF SYSTEMS: Ambulation impaired, in wheelchair. No CV, , pulmonary, eye, ENT system symptoms on review. Reliability poor. MENTAL STATUS EXAM: Oriented to herself. Insight, judgment, recent and remote memory, attention, concentration, fund of knowledge poor, consistent with her diagnosis mentioned in my initial note. PLAN: No change from initial note and transition to fpc on 01/24/2019. MAN Baldemar MCCAIN MD DR: ERIN/rajesh JOB#: [id number] / [id number]
--- NOTE | 2019-01-24 23:02 | PDOC ---
Exam Note: Yoel Note: Please also refer to the separate dictated note~for this date of service dictated separately.~Patient seen individually. Discussed the patient with Nursing staff reviewed the chart.~Reviewed interim history and current functioning. Reviewed vital signs,~Labs/ Radiology~and current medications noted below. Continue current treatment with the changes noted in the dictated addendum note Assessment: Vital Signs: Vital Signs Date Time Temp Pulse Resp B/P (MAP) Pulse Ox O2 Delivery O2 Flow Rate FiO2 01/24/19 06:07 97.5 81 20 126/79 (95) 96 01/23/19 16:26 Room Air I&O Intake and Output 01/24/19 07:00 Intake Total 1200 ml Balance 1200 ml Intake Oral 1200 ml Current Medications: Meds: Current Medications Acetaminophen (Tylenol) 650 mg PRN Q6HRS PRN PO PAIN / TEMP Last administered on 01/05/19at 13:31; Start 12/27/18 at 14:45; Stop 01/05/19 at 14:51; Status DC Multi-Ingredient Ointment (Analgesic [place]) 1 halle PRN QID PRN TP MUSCLE PAIN; Start 12/27/18 at 14:45; Stop 01/24/19 at 11:50; Status DC Al Hydroxide/Mg Hydroxide (Mylanta Plus Xs) 15 ml PRN AFTMEALHC PRN PO DYSPEPSIA; Start 12/27/18 at 14:45; Status Cancel Magnesium Hydroxide (Milk Of Magnesia) 2,400 mg PRN QHS PRN PO CONSTIPATION; Start 12/27/18 at 14:45; Status Cancel Acetaminophen (Tylenol) 650 mg PRN Q6HRS PRN PO PAIN; Start 12/27/18 at 15:00; Status UNV Lorazepam (Ativan) 0.5 mg PRN Q4HRS PRN PO AGITATION Last administered on at 10:09; Start 12/27/18 at 15:00; Stop 01/24/19 at 11:50; Status DC Al Hydroxide/Mg Hydroxide (Mylanta Plus Xs) 30 ml PRN Q4HRS PRN PO DYSPEPSIA; Start 12/27/18 at 15:00; Stop 01/24/19 at 11:50; Status DC Acetaminophen/ Codeine Phosphate (Tylenol #3) 1 tab PRN Q6HRS PRN PO PAIN Last administered on 01/08/19 01:27; Start 12/27/18 at 15:15; Stop 01/24/19 at 11:50 ; Status DC Atorvastatin Calcium (Lipitor) 10 mg QHS PO Last administered on 01/23/19 19: 50; Start 12/27/18 at 21:00; Stop 01/24/19 at 11:50; Status DC Gabapentin (Neurontin) 100 mg TID PO Last administered on 01/24/19 08:10; Start 12/27/18 at 21:00; Stop 01/24/19 at 11:50; Status DC Magnesium Hydroxide (Milk Of Magnesia) 2,400 mg PRN Q6HRS PRN PO CONSTIPATION Last administered on 01/23/19 17:03; Start 12/27/18 at 15:15; Stop 01/24/19 at 11:50; Status DC Memantine (Namenda) 10 mg BID PO Last administered on 12/31/18 19:53; Start at 21:00; Stop 12/31/18 at 21:12; Status DC Polyethylene Glycol (miraLAX) 17 gm PRN DAILY PRN PO CONSTIPATION; Start at 15:15; Stop 01/24/19 at 11:50; Status DC Quetiapine Fumarate (SEROquel) 150 mg TID PO Last administered on 01/24/19 08: 08; Start 12/27/18 at 21:00; Stop 01/24/19 at 11:50; Status DC Trazodone HCl (Desyrel) 50 mg BID PO Last administered on 12/28/18 08:27; Start 12/27/18 at 21:00; Stop 12/28/18 at 17:59; Status DC Cephalexin HCl (Keflex) 500 mg TID PO Last administered on 12/29/18 15:33; Start 12/27/18 at 21:00; Stop 12/29/18 at 17:51; Status DC Sertraline HCl (Zoloft) 25 mg DAILY PO Last administered on 12/31/18 07:30; Start 12/29/18 at 09:00; Stop 12/31/18 at 21:12; Status DC Trazodone HCl (Desyrel) 100 mg QHS PO Last administered on 01/23/19 19:50; Start 12/28/18 at 21:00; Stop 01/24/19 at 11:50; Status DC Trazodone HCl (Desyrel) 100 mg PRN QHS PRN PO INSOMNIA Last administered on 01/11 21:39; Start 12/28/18 at 18:00; Stop 01/24/19 at 11:50; Status DC Mirtazapine (Remeron) 7.5 mg QHS PO Last administered on 12/31/18 19:53; Start 12/29/18 at 21:00; Stop 12/31/18 at 21:12; Status DC Olanzapine (ZyPREXA ZYDIS) 2.5 mg PRN Q2HR PRN PO PSYCHOSIS Last administered on 01/17/19 10:09; Start 12/30/18 at 11:15; Stop 01/24/19 at 11:50; Status DC Divalproex Sodium (Depakote Sprinkles) 125 mg BID@0900,1700 PO Last administered on 01/10/19 16:35; Start 12/31/18 at 09:00; Stop 01/10/19 at 18:12; Status DC Mirtazapine (Remeron) 15 mg QHS PO Last administered on 01/06/19 19:36; Start 12/31/18 at 21:30; Stop 01/06/19 at 23:12; Status DC Sertraline HCl (Zoloft) 50 mg DAILY PO Last administered on 01/03/19 07:52; Start 01/01/19 at 09:00; Stop 01/03/19 at 23:50; Status DC Doxycycline Hyclate (Vibra-Tab) 100 mg BID PO Last administered on 01/11/19 08: 07; Start 01/01/19 at 21:00; Stop 01/11/19 at 20:00; Status DC Bacitracin (Bacitracin Topical Pkt) 1 pkt HS TP Last administered on 01/10/19 21:00; Start 01/01/19 at 21:00; Stop 01/10/19 at 22:53; Status DC Sertraline HCl (Zoloft) 75 mg DAILY PO Last administered on 01/05/19 07:36; Start 01/04/19 at 09:00; Stop 01/05/19 at 16:31; Status DC Lactobacillus Rhamnosus (Culturelle) 1 cap BID PO Last administered on 08:08; Start 01/03/19 at 21:00; Stop 01/24/19 at 11:50; Status DC Acetaminophen (Tylenol) 650 mg TID PO Last administered on 01/24/19 08:08; Start 01/05/19 at 21:00; Stop 01/24/19 at 11:50; Status DC Duloxetine HCl (Cymbalta) 30 mg DAILY PO Last administered on 01/24/19at 08:12; Start 01/06/19 at 09:00; Stop 01/24/19 at 11:50; Status DC Trazodone HCl (Desyrel) 100 mg 1X ONCE PO Last administered on 01/06/19 19:39 ; Start 01/06/19 at 21:00; Stop 01/06/19 at 21:01; Status DC Amitriptyline HCl (Elavil) 10 mg QHS PO Last administered on 01/08/19at 20:10; Start 01/07/19 at 21:00; Stop 01/09/19 at 19:09; Status DC Amitriptyline HCl (Elavil) 20 mg QHS PO Last administered on 01/23/19 19:50; Start 01/09/19 at 21:00; Stop 01/24/19 at 11:50; Status DC Divalproex Sodium (Depakote Sprinkles) 125 mg 0900,1300,1700 PO Last administered on 01/24/19 08:08; Start 01/11/19 at 09:00; Stop 01/24/19 at 11:50 ; Status DC Bacitracin (Bacitracin Topical Pkt) 1 pkt PRN BID PRN TP PUBIC AREA PELICULITIS ; Start 01/11/19 at 21:00; Stop 01/24/19 at 11:50; Status DC Active Scripts Active Reported Trazodone Hcl 100 Mg Tablet 100 Mg PO PRN QHS PRN Trazodone Hcl 100 Mg Tablet 100 Mg PO QHS Zyprexa Zydis (Olanzapine) 5 Mg Tab.rapdis 2.5 Mg PO PRN Q2HR PRN Analgesic [place] (Methyl Salicylate/Menthol) 28 Gm Oint...g. 1 Applic TP PRN QID PRN Culturelle (Lactobacillus Rhamnosus Gg) 1 Each Capsule 1 Each PO BID Cymbalta (Duloxetine Hcl) 30 Mg Capsule.dr 30 Mg PO DAILY Depakote Sprinkle (Divalproex Sodium) 125 Mg Cap.sprink 125 Mg PO [id number], 1300 , 1700 Bacitracin 1 Each Packet 1 Pkt TP PRN BID PRN Amitriptyline Hcl 10 Mg Tablet 20 Mg PO QHS Gabapentin 600 Mg Tablet 100 Mg PO TID Seroquel (Quetiapine Fumarate) 100 Mg Tablet 150 Mg PO TID Atorvastatin Calcium 10 Mg Tablet 10 Mg PO QHS Miralax (Polyethylene Glycol 3350) 17 Gm Powd.pack 17 Gm PO PRN DAILY PRN Tylenol With Codeine #3 Tablet (Acetaminophen With Codeine) 1 Each Tablet 1 Each PO PRN Q6HRS PRN Milk Of Magnesia (Magnesium Hydroxide) 2,400 Mg/10 Ml Oral.susp 30 Ml PO PRN Q6HRS PRN Tylenol (Acetaminophen) 325 Mg Tablet 650 Mg PO PRN Q6HRS PRN Ativan (Lorazepam) 1 Mg Tablet 0.5 Mg PO PRN Q4HRS PRN Mag-Al Plus Xs Suspension (Mag Hydrox/Al Hydrox/Simeth) 30 Ml Oral.susp 30 Ml PO PRN Q4HRS PRN I have reviewed the current psychotropics carefully including drug interactions. Risk benefit ratio favors no change other than as noted in my dictated progress note. Diagnosis: Problems: (1) Anxiety disorder (2) Dementia in Alzheimer's disease with delusions (3) Dementia in Alzheimer's disease with depression (4) Dementia, vascular, with delusions (5) Dementia, vascular, with depression (6) Impulse control disorder NAJMA MCCAIN MD Jan 24, 2019 23:02
== END 2019-01-24 11:49 | DRG 57 ==
LOC: ER 11:02 → GEROPSY 13:10
PROVIDERS: ADMIT Psychiatry & Neurology Psychiatry; ATTEND Psychiatry & Neurology Psychiatry
DX: G30.9 Alzheimer's disease, unspecified (principal); F01.51 Vascular dementia, unspecified severity, with behavioral disturbance; F02.81 Dementia in other diseases classified elsewhere, unspecified severity, with behavioral disturbance; F32.9 Major depressive disorder, single episode, unspecified; F41.9 Anxiety disorder, unspecified; F63.9 Impulse disorder, unspecified; Z02.89 Encounter for other administrative examinations; F02.80 Dementia in other diseases classified elsewhere, unspecified severity, without behavioral disturbance, psychotic disturbance, mood disturbance, and anxiety; E78.00 Pure hypercholesterolemia, unspecified; E78.5 Hyperlipidemia, unspecified; G47.00 Insomnia, unspecified; G89.4 Chronic pain syndrome; K21.9 Gastro-esophageal reflux disease without esophagitis; K59.09 Other constipation; Z79.899 Other long term (current) drug therapy
CPT/HCPCS: 36415; 73501; 73502; 80053; 80061; 80164; 81001; 82306; 83036; 83540; 83550; 83735; 84436; 84443; 84480; 85025; 86592; 93005; P9612; 97116; 97530; 99285-25